=== PATIENT | male | born 1975 | race Two or more races ===

== ENCOUNTER 2019-12-26 11:46 | Outpatient (REF) | payer MEDICAID, SELFPAY ==
[2019-12-26 13:28] LABS: Erythrocyte Sedimentation Rate 2 MM/HR (0-15)
[2019-12-26 15:05] LABS: Alanine Aminotransferase 20 U/L (0-40); Albumin Level 4.7 g/dL (3.5-5.0); Alkaline Phosphatase 70 U/L (39-117); Anion Gap 13 (12-20); Aspartate Amino Transferase 16 U/L (5-37); Bilirubin Total 0.6 mg/dL (0.0-1.0); Blood Urea Nitrogen 12 mg/dL (9-16); Calcium 9.5 mg/dL (8.4-10.2); Carbon Dioxide 25 mmol/L (22-29); Chloride 108 mmol/L (96-108); Cholesterol 230 mg/dL; Estimated Glomerular Filt Rate > 60; Glucose Random 99 mg/dL (60-115); HDL Cholesterol 41 mg/dL; LDL Cholesterol Calculated 166 mg/dl; Potassium 4.4 mmol/l (3.3-5.1); Rheumatoid Factor < 15.0 IU/mL (<15.0); Sodium 142 mmol/L (135-145); Total Protein 7.3 g/dL (6.5-8.0); Triglycerides 117 mg/dL
[2019-12-28 12:36] LABS: Cyclic Citrullinated Peptide <16 UNITS
== END 2019-12-26 11:47 | disposition home or self-care (01) ==
LOC: HO.LAB 11:46
PROVIDERS: PCP Internal Medicine; Visit Provider Internal Medicine
DX: E78.00 Pure hypercholesterolemia, unspecified (principal); F32.5 Major depressive disorder, single episode, in full remission; I10 Essential (primary) hypertension; M79.643 Pain in unspecified hand; R21 Rash and other nonspecific skin eruption; R35.0 Frequency of micturition
CPT/HCPCS: 36415; 80053; 80061; 85652; 86038; 86039; 86200; 86431

== ENCOUNTER 2019-12-26 12:29 | Emergency (ER) | payer MEDICAID, SELFPAY ==
--- NOTE | 2019-12-26 | CT_ITS ---
EXAMINATION: CT HEAD WITHOUT CONTRAST CT FACIAL BONES WITHOUT CONTRAST CLINICAL INFORMATION: Dizziness. Fall. COMPARISON: None. TECHNIQUE: Imaging was performed from the skull base to vertex without intravenous administration of contrast. In addition, helical noncontrast CT imaging was acquired through the facial bones and source images were reviewed along with axial reconstructions and sagittal and coronal MPRs. [This CT examination was performed using dose optimization techniques as appropriate, variously including the following: *Automated exposure control *Adjustment of mA and/or kV according to patient size (this includes techniques or standardized protocols for targeted exams where dose is matched to indication/reason for exam; i.e. extremities or head) *Use of iterative reconstruction technique] DLP: 1262 mGy-cm FINDINGS: HEAD: No intracranial mass, hemorrhage, or midline shift is visualized. The ventricles and sulci are age-appropriate. No extra-axial collections are identified. FACIAL BONES: There is no evidence of an acute facial bone fracture. The paranasal sinuses are well aerated. The orbits are unremarkable in appearance. IMPRESSION: No acute intracranial process or discrete facial bone fracture.
--- NOTE | 2019-12-26 | ECG_ITS ---
Test Reason : DIZZINESS Blood Pressure : / mmHG Vent. Rate : 067 BPM Atrial Rate : 067 BPM P-R Int : 152 ms QRS Dur : 102 ms QT Int : 408 ms P-R-T Axes : 050 -12 012 degrees QTc Int : 431 ms Normal sinus rhythm with sinus arrhythmia Minimal voltage criteria for LVH, may be normal variant Borderline ECG No previous ECGs available Referred By: Generic ED Physician Electronically Signed By:MERCEDES MANDUJANO
[2019-12-26 12:39] VITALS: BP 158/101; PULSE 61; RESP 18; TEMP 37; O2SAT 98; BMI 34.9
[2019-12-26 15:54] VITALS: BP 132/93; PULSE 60; RESP 16; TEMP 36.6; O2SAT 97
[2019-12-26 16:00] VITALS: BP 124/78; PULSE 81; RESP 16; TEMP 36.6; O2SAT 96
[2019-12-26 16:03] VITALS: BP 120/80
[2019-12-26 16:08] VITALS: BP 156/99; PULSE 68
[2019-12-26 16:09] LABS: MANUAL DIFF FLAG NO
--- NOTE | 2019-12-26 16:12 | PC.NURSE ---
PT UPRIGHT IN BED, RR EVEN UNLABORED, SKIN WPD AOX3. PT C/O L SIDED HEADACHE ONGOING FOR DAYS, AND MULTIPLE FALLS OVER LAST 2 WEEKS DURING WHICH HE HAS HAD INTERMITTENT DIZZINESS, SPECIFICALLY UPON STANDING. PT'S NEUROS GROSSLY INTACT, VSS, NAD. IV ESTABLISHED, LABS DRAWN. PT AWAITING LAB/IMAGING RESULTS. PT AWARE/AGREEABLE TO PLAN OF CARE.
[2019-12-26 16:13] LABS: Basophils Percent Auto 0.2 % (0-2); Eosinophils Absolute Auto 0.1 X10*3/uL (0.0-0.4); Eosinophils Percent Auto 1.5 % (0-4); Hematocrit 47.6 % (42-52); Hemoglobin 15.7 g/dl (14.0-18.0); Imm Gran Abs Auto 0.01 X10*3/uL (0.00-0.03); Imm Gran Pct Auto 0.2 % (0.0-0.4); Lymphocytes Absolute Auto 0.7 X10*3/uL (1.2-4.9); Lymphocytes Percent Auto 15.3 % (20-40); Mean Corpuscular Hemoglobin 27.8 pg (27.0-33.0); Mean Corpuscular Volume 84.2 fL (80-98); Mean Platelet Volume 11.4 fL (9.4-12.4); Monocytes Absolute Auto 0.3 X10*3/uL (0.1-1.2); Monocytes Percent Auto 6.3 % (2-11); Neutrophils Absolute Auto 3.6 X10*3/uL (2.0-8.3); Neutrophils Percent Auto 76.5 % (45-73); Platelet Count 198 X10*3/uL (160-400); Red Blood Count 5.65 X10*6/uL (4.60-5.80); Red Cell Distribution Width 13.2 % (11.0-16.0); White Blood Count 4.8 X10*3/uL (4.8-10.8)
[2019-12-26 16:16] LABS: Glucose Urine UA NEG (NEG); Leukocyte Esterase Urine NEG (NEG); Nitrite Urine NEG (NEG); Urine Blood NEG (NEG); Urine Ketones NEG (NEG); Urine Protein TRACE MG/DL (NEG-TRACE)
[2019-12-26 16:20] LABS: Appearance Urine CLEAR; Color Urine YELLOW
--- NOTE | 2019-12-26 16:26 | ED.DIZZY ---
HPI - Dizziness General Chief Complaint: Fall Stated Complaint: FALLS Time Seen by Provider: 12/26/19 15:17 Source: patient Mode of arrival: ambulatory History of Present Illness HPI Narrative: 44 yo male with a past medical history of HTN, HLD, RA c/o room spinning dizziness / feeling off balance x2 weeks with associated frequent falls at home. Reports left-sided headache with left eye pressure, nausea and vomiting. Patient reports symptoms were sudden onset, described as feeling like he is on a boat, worse with position changes, standing to sitting/ and head movement. Reports fell and hit head 1 week ago, now with residual periorbital ecchymosis. denies taking anticoagulation or LOC. Denies hitting head again since 1st fall. Denies visual changes, chest pain /shortness of breath, weakness, numbness /tingling MD elicited complaint: dizziness Onset (ago): week(s) Timing: sudden onset Severity: severe Description: sense of movement, off-balance and difficulty walking Context: change in body position Exacerbating factors: movement/ambulation, change in body position, standing and position/lying down Relieving factors: remaining still Associated symptoms: nausea and vomiting Related Data Previous Rx's Medication Instructions Recorded meclizine 25 mg PO TID PRN #14 tab 12/26/19 ondansetron HCl [Zofran] 4 mg PO Q8H PRN #10 tab 12/26/19 Allergies Allergy/AdvReac Type Severity Reaction Status Date / Time aspirin Allergy Rash Verified 12/26/19 12:39 penicillin V Allergy Unknown Verified 12/26/19 12:39 Review of Systems Review of Systems: Yes all other systems are reviewed and are negative Constitutional: Constitutional: Reports as per HPI, Reports no additional constitutional complaints, Denies chills, Denies fever(s), Reports headache(s) and Denies weakness Eyes: Eyes: Reports as per HPI, Reports no additional eye complaints, Denies blurry vision and Denies loss of vision ENT: Reports system reviewed and no additional complaints, except as documented, Reports as per HPI, Reports dizziness, Reports headache(s) and Denies sore throat Cardiovascular: Cardiovascular: Reports as per HPI, Reports no additional cardiovascular complaints, Denies chest pain, Denies edema, Denies dyspnea and Denies dyspnea on exertion Respiratory: Respiratory: Reports as per HPI, Reports no additional respiratory complaints, Denies chest congestion, Denies cough, Denies dyspnea and Denies dyspnea on exertion Gastrointestinal: Gastrointestinal: Reports as per HPI, Denies abdominal pain, Denies diarrhea, Reports nausea and Reports vomiting Musculoskeletal: Musculoskeletal: Reports as per HPI, Reports abnormal gait, Denies numbness and Denies tingling Integumentary/Breasts: Skin/Breast: Denies rash Neurologic: Reports abnormal gait, Reports dizziness, Reports headache(s), Denies focal weakness, Denies loss of vision, Denies numbness, Denies Sensory deficit (Neuro), Denies tingling and Denies weakness Psychiatric: Psychiatric: Reports no additional psychiatric complaints [facility] Past Medical History Attestation statement: The following information was validated with the patient. Medical History High cholesterol HTN (hypertension) Rheumatoid arteritis Trigger finger Surgical History (Updated 12/26/19 @ 12:43 by Mildred Mcghee) S/P eye surgery Social History Social History Alcohol intake: current Alcohol intake frequency: a few times a month Alcohol type: beer Smoking Status: Never smoker Use of substances other than those prescribed or required for medical reasons: No Advance Directives: No Advance Directives Information Provided: Yes Physical Exam Vital Signs and I&O and Narrative: Vital Signs and I&O: Vital Signs Temp 98 F 12/26/19 15:54 Pulse 68 12/26/19 16:08 Resp 16 12/26/19 15:54 BP 156/99 H 12/26/19 16:08 Pulse Ox 97 12/26/19 15:54 Intake & Output 12/25/19 12/26/19 12/26/19 18:59 06:59 18:59 Weight 104.326 kg Body Mass Index 34.9 Const: General: cooperative and healthy appearing Orientation/consciousness: patient oriented x3 Limitations: no limitations HENMT: Other: + tenderness and erythema to forehead. Tenderness to right periorbital area. No palpable step-offs. Head: No No palpable skull fracture present, No Aguilar's sign, No palpable skull fracture and Yes raccoon eyes Ears: hearing grossly normal bilaterally and TM's normal bilaterally General nose exam: Normal external nose present Mouth: Normal oral and palatal mucosa present and no muffled voice Throat: Yes posterior oropharynx normal and Yes uvula midline Eyes: Other: dizziness elicited on EOM General: appearance normal, both eyes and all related structures Pupils: Equal, round and reactive pupils present EOM: EOMs intact bilaterally Direct Ophthalmoscopy: normal light reflex and no photophobia Neck: Other: No midline cervical spinous tenderness or step-offs Neck: Yes normal visual inspection and Yes no meningeal signs Resp: Effort & Inspection: normal respiratory effort and no stridor Auscultation: clear to auscultation bilaterally, no crackles, no rales, no rhonchi and no wheezes Cardio: Rate: regular rate Heart sounds: S1 normal heart sound present and S2 normal heart sound present Peripheral pulses: Peripheral pulses 2+ throughout GI: Inspection: Yes normal to inspection Palpation (GI): Soft to palpation, nontender, no guarding and not rigid Back/Spine/Pelvis: Other: no midline thoracic /lumbar spinous tenderness. +R thoracic MSK ttp Skin: Wounds: no wounds Neuro: General: patient oriented x3, tone normal, moves all extremities, no meningeal signs, no focal motor deficits and CN's II-XI intact bilaterally Cranial nerves: Yes Equal, round and reactive pupils present Gait exam (Neuro): Staggering gait present ( Slight staggering/off balance gait to right side. Not ataxic) Sensory Exam: No Sensory deficit (Neuro) Extrem: General: Yes normal to inspection Course Course Course Narrative: 1639-- labs/UA unremarkable. Orthostatic vital signs negative, however patient symptomatic -1646-- head/facial bone CT without acute intracranial process or discrete facial bone fracture --1655-- on re-evaluation patient is about to receive symptomatic therapies, lab and imaging results discussed. Will re-evaluate after medication MDM - Dizziness MDM Narrative Medical decision making narrative: 44 year old male with a past medical history of HTN, HLD, RA c/o room spinning dizziness / feeling off balance x2 weeks with associated frequent falls at home. On exam mildly hypertensive, NAD, bilateral raccoon eyes, no midline spinous tenderness or red flag symptoms. No focal neuro deficits, however gait staggered to right side. Concern for subdural vs BPPV vs ?subacute CVA. Low concern for CVT. R/o infectious/metabolic abnls Plan: EKG, labs, UA, head CT /facial bone CT, symptomatic treatment/reassess Lab Data Result diagrams: 12/26/19 16:01 12/26/19 16:02 Labs: Lab Results 12/26/19 12/26/19 12/26/19 Range/Units 16:01 16:01 16:01 WBC 4.8 (4.8-10.8) X10*3/uL RBC 5.65 (4.60-5.80) X10*6/uL Hgb 15.7 (14.0-18.0) g/dl Hct 47.6 (42-52) % MCV 84.2 (80-98) fL MCH 27.8 (27.0-33.0) pg MCHC 33.0 (31.0-36.0) g/dl RDW 13.2 (11.0-16.0) % Plt Count 198 (160-400) X10*3/uL MPV 11.4 (9.4-12.4) fL Immature Gran % (Auto) 0.2 (0.0-0.4) % Neut % (Auto) 76.5 H (45-73) % Lymph % (Auto) 15.3 L (20-40) % [place] % (Auto) 6.3 (2-11) % Eos % (Auto) 1.5 (0-4) % Baso % (Auto) 0.2 (0-2) % Neut # (Auto) 3.6 (2.0-8.3) X10*3/uL Lymph # (Auto) 0.7 L (1.2-4.9) X10*3/uL [place] # (Auto) 0.3 (0.1-1.2) X10*3/uL Eos # (Auto) 0.1 (0.0-0.4) X10*3/uL Baso # (Auto) 0.0 (0.0-0.2) X10*3/uL Abs Immat Gran (auto) 0.01 (0.00-0.03) X10*3/uL Absolute Nucleated RBC 0.000 (0.0-0.012) X10*3/uL Nucleated RBC % (auto) 0.0 (0.0-0.2) /100WBC Sodium (135-145) mmol/L Potassium (3.3-5.1) mmol/l Chloride (96-108) mmol/L Carbon Dioxide (22-29) mmol/L Anion Gap (12-20) BUN (9-16) mg/dL Creatinine (0.5-1.4) mg/dL Estim Creat Clear Calc Estimated GFR Random Glucose (60-115) mg/dL Calcium (8.4-10.2) mg/dL Magnesium (1.6-2.6) mg/dL Total Bilirubin (0.0-1.0) mg/dL Direct Bilirubin (0.0-0.5) mg/dL AST (5-37) U/L ALT (0-40) U/L Alkaline Phosphatase (39-117) U/L Troponin I High Sens < 3.5 (<3.5-35.0) ng/L B-Natriuretic Peptide < 10 (<100) pg/mL Total Protein (6.5-8.0) g/dL Albumin (3.5-5.0) g/dL Urine Color YELLOW Urine Appearance CLEAR Urine pH 6.0 (5.0-8.0) Ur Specific [place] 1.020 (1.005-1.025) Urine Protein TRACE (NEG-TRACE) MG/DL Urine Glucose (UA) NEG (NEG) MG/DL Urine Ketones NEG (NEG) MG/DL Urine Blood NEG (NEG) Urine Nitrite NEG (NEG) Ur Leukocyte Esterase NEG (NEG) 12/26/19 Range/Units 16:02 WBC (4.8-10.8) X10*3/uL RBC (4.60-5.80) X10*6/uL Hgb (14.0-18.0) g/dl Hct (42-52) % MCV (80-98) fL MCH (27.0-33.0) pg MCHC (31.0-36.0) g/dl RDW (11.0-16.0) % Plt Count (160-400) X10*3/uL MPV (9.4-12.4) fL Immature Gran % (Auto) (0.0-0.4) % Neut % (Auto) (45-73) % Lymph % (Auto) (20-40) % [place] % (Auto) (2-11) % Eos % (Auto) (0-4) % Baso % (Auto) (0-2) % Neut # (Auto) (2.0-8.3) X10*3/uL Lymph # (Auto) (1.2-4.9) X10*3/uL [place] # (Auto) (0.1-1.2) X10*3/uL Eos # (Auto) (0.0-0.4) X10*3/uL Baso # (Auto) (0.0-0.2) X10*3/uL Abs Immat Gran (auto) (0.00-0.03) X10*3/uL Absolute Nucleated RBC (0.0-0.012) X10*3/uL Nucleated RBC % (auto) (0.0-0.2) /100WBC Sodium 142 (135-145) mmol/L Potassium 4.2 (3.3-5.1) mmol/l Chloride 108 (96-108) mmol/L Carbon Dioxide 27 (22-29) mmol/L Anion Gap 11 L (12-20) BUN 11 (9-16) mg/dL Creatinine 0.77 (0.5-1.4) mg/dL Estim Creat Clear Calc 141.8 Estimated GFR > 60 Random Glucose 96 (60-115) mg/dL Calcium 9.6 (8.4-10.2) mg/dL Magnesium 1.9 (1.6-2.6) mg/dL Total Bilirubin 0.7 (0.0-1.0) mg/dL Direct Bilirubin 0.3 (0.0-0.5) mg/dL AST 15 (5-37) U/L ALT 19 (0-40) U/L Alkaline Phosphatase 68 (39-117) U/L Troponin I High Sens (<3.5-35.0) ng/L B-Natriuretic Peptide (<100) pg/mL Total Protein 7.2 (6.5-8.0) g/dL Albumin 4.7 (3.5-5.0) g/dL Urine Color Urine Appearance Urine pH (5.0-8.0) Ur Specific [place] (1.005-1.025) Urine Protein (NEG-TRACE) MG/DL Urine Glucose (UA) (NEG) MG/DL Urine Ketones (NEG) MG/DL Urine Blood (NEG) Urine Nitrite (NEG) Ur Leukocyte Esterase (NEG) Discharge Plan Discharge Clinical Impression: Dizziness, Head trauma, Falls Patient Disposition: Home, Self-Care Prescriptions: New meclizine 25 mg tablet 25 mg PO TID PRN (Reason: dizziness) Qty: 14 RF: 0 ondansetron HCl [Zofran] 4 mg tablet 4 mg PO Q8H PRN (Reason: nausea and vomiting) Qty: 10 RF: 0 Referrals: Heaven Reynolds MD [Primary Care Provider] - 2 days Raymundo Gómez [Physician] - 2 days
[2019-12-26 16:38] LABS: Alanine Aminotransferase 19 U/L (0-40); Albumin Level 4.7 g/dL (3.5-5.0); Alkaline Phosphatase 68 U/L (39-117); Anion Gap 11 (12-20); Aspartate Amino Transferase 15 U/L (5-37); Bilirubin Direct 0.3 mg/dL (0.0-0.5); Bilirubin Total 0.7 mg/dL (0.0-1.0); Blood Urea Nitrogen 11 mg/dL (9-16); Calcium 9.6 mg/dL (8.4-10.2); Carbon Dioxide 27 mmol/L (22-29); Chloride 108 mmol/L (96-108); Creatinine Clr Calc Pharmacy 141.8; Estimated Glomerular Filt Rate > 60; Glucose Random 96 mg/dL (60-115); Magnesium 1.9 mg/dL (1.6-2.6); Potassium 4.2 mmol/l (3.3-5.1); Sodium 142 mmol/L (135-145); Total Protein 7.2 g/dL (6.5-8.0)
[2019-12-26 16:45] LABS: B Type Natriuretic Peptide < 10 pg/mL (<100); Troponin-I High Sensitivity < 3.5 ng/L (<3.5-35.0)
[2019-12-26] MEDS: 0.9 % Sodium Chloride 1,000 ML 999 ML IVCONT ×2 (16:48)
[2019-12-26] MEDS: Meclizine HCl 25 MG TABLET PO (16:53)
[2019-12-26] MEDS: ondansetron HCL 4 MG/2 ML VIAL IVPUSH (16:53)
[2019-12-26] MEDS: Acetaminophen 325 MG TABLET 650 MG PO (16:54)
[2019-12-26] MEDS: LORazepam 2 MG/ML VIAL 1 MG IVPUSH (16:54)
[2019-12-26 18:00] VITALS: BP 120/84; PULSE 71; RESP 16; TEMP 36.8; O2SAT 97
== END 2019-12-26 20:16 | disposition home or self-care (01) ==
PROVIDERS: Physician Assistant; Emergency Provider Emergency Medicine; PCP Internal Medicine
DX: R42 Dizziness and giddiness (principal); Z91.81 History of falling
CPT/HCPCS: 36415; 70450; 70486; 80048; 80076; 81003; 83735; 83880; 84484; 85025; 93005; 93010; 96361; 96374; 96375; 99284; J2060; J2405

== ENCOUNTER 2020-06-07 13:55 | Outpatient (REF) | payer MEDICAID, SELFPAY ==
[2020-06-07 15:13] LABS: MANUAL DIFF FLAG NO
[2020-06-07 15:19] LABS: Basophils Percent Auto 0.2 % (0-2); Eosinophils Absolute Auto 0.1 X10*3/uL (0.0-0.4); Eosinophils Percent Auto 1.6 % (0-4); Hematocrit 46.9 % (42-52); Hemoglobin 15.8 g/dl (14.0-18.0); Imm Gran Abs Auto 0.02 X10*3/uL (0.00-0.03); Imm Gran Pct Auto 0.4 % (0.0-0.4); Lymphocytes Absolute Auto 0.7 X10*3/uL (1.2-4.9); Lymphocytes Percent Auto 13.3 % (20-40); Mean Corpuscular HGB Conc 33.7 g/dl (31.0-36.0); Mean Corpuscular Hemoglobin 28.3 pg (27.0-33.0); Mean Corpuscular Volume 83.9 fL (80-98); Mean Platelet Volume 11.7 fL (9.4-12.4); Monocytes Absolute Auto 0.3 X10*3/uL (0.1-1.2); Monocytes Percent Auto 5.9 % (2-11); Neutrophils Absolute Auto 4.4 X10*3/uL (2.0-8.3); Neutrophils Percent Auto 78.6 % (45-73); Platelet Count 179 X10*3/uL (160-400); Red Blood Count 5.59 X10*6/uL (4.60-5.80); Red Cell Distribution Width 13.2 % (11.0-16.0); White Blood Count 5.6 X10*3/uL (4.8-10.8)
[2020-06-07 15:30] LABS: Glucose Urine UA NEG (NEG); Leukocyte Esterase Urine NEG (NEG); Nitrite Urine NEG (NEG); Specific Gravity - Urine 1.025 (1.005-1.025); Urine Blood NEG (NEG); Urine Ketones NEG (NEG); Urine Protein NEG (NEG-TRACE)
[2020-06-07 15:40] LABS: Appearance Urine CLEAR; Color Urine YELLOW
[2020-06-07 15:47] LABS: Alanine Aminotransferase 23 U/L (0-40); Alkaline Phosphatase 85 U/L (39-117); Anion Gap 13 (12-20); Aspartate Amino Transferase 22 U/L (5-37); Bilirubin Total 0.8 mg/dL (0.0-1.0); Blood Urea Nitrogen 18 mg/dL (9-16); C Reactive Protein 0.22 mg/dL (< or = 0.50); Calcium 10.2 mg/dL (8.4-10.2); Carbon Dioxide 27 mmol/L (22-29); Chloride 103 mmol/L (96-108); Estimated Glomerular Filt Rate > 60; Glucose Random 93 mg/dL (60-115); Potassium 4.4 mmol/L (3.3-5.1); Sodium 139 mmol/L (135-145); Total Protein 7.8 g/dL (6.5-8.0)
[2020-06-07 16:03] LABS: Erythrocyte Sedimentation Rate 2 MM/HR (0-15)
[2020-06-07 16:09] LABS: Thyroid Stimulating Hormone 2.14 uIU/mL (0.32-4.0)
[2020-06-07 16:22] LABS: RBC Urine 0 /HPF (0); WBC Urine 0 /HPF (0-4)
[2020-06-08 11:26] LABS: Thyroglobulin Antibodies <1 IU/mL (< or = 1); Thyroid Peroxidase Antibodies 2 IU/mL (<9)
[2020-06-10 13:47] LABS: Complement C3 139 mg/dL (82-185)
[2020-06-10 23:17] LABS: Anti Nuclear Antibody Screen POSITIVE (NEGATIVE); Anti Nuclear Antibody Titer 1:40 titer
[2020-06-11 13:32] LABS: Anti DNA DS Antibody 1 IU/mL; Antibody to SS-A Antigen <1.0 NEG AI (<1.0 NEG); Antibody to SS-B Antigen <1.0 NEG AI (<1.0 NEG); SM/Ribonucleoprotein Ab <1.0 NEG AI (<1.0 NEG); Smith Protein <1.0 NEG AI (<1.0 NEG)
== END 2020-06-07 13:56 | disposition home or self-care (01) ==
LOC: HO.LAB 13:55
PROVIDERS: PCP Internal Medicine; Visit Provider Student in an Organized Health Care Education/Training Program
DX: R76.8 Other specified abnormal immunological findings in serum (principal); M25.50 Pain in unspecified joint; M17.0 Bilateral primary osteoarthritis of knee; M65.30 Trigger finger, unspecified finger; E78.00 Pure hypercholesterolemia, unspecified; I10 Essential (primary) hypertension; Z88.6 Allergy status to analgesic agent; Z88.0 Allergy status to penicillin; Z88.8 Allergy status to other drugs, medicaments and biological substances; Z79.899 Other long term (current) drug therapy
CPT/HCPCS: 36415; 80053; 81001; 84443; 85025; 85652; 86038; 86039; 86140; 86160; 86225; 86235; 86376; 86800; 99202

== ENCOUNTER → 2020-06-25 15:49 | Outpatient (BNVA) | payer MEDICAID, SELFPAY | PROVIDERS: Visit Provider Student in an Organized Health Care Education/Training Program | DX: M25.50 Pain in unspecified joint (principal); R76.8 Other specified abnormal immunological findings in serum | CPT/HCPCS: 99212 ==

== ENCOUNTER → 2021-01-20 19:12 | Outpatient (REF) | payer MEDICAID, SELFPAY | LOC: HO.SL 19:12 | PROVIDERS: Visit Provider Internal Medicine | DX: G47.33 Obstructive sleep apnea (adult) (pediatric) (principal) | CPT/HCPCS: 95806 ==

== ENCOUNTER 2021-05-19 06:25 | Outpatient (REF) | payer MEDICAID, SELFPAY ==
[2021-05-19 08:10] LABS: Alanine Aminotransferase 17 U/L (0-40); Albumin Level 4.4 g/dL (3.5-5.0); Alkaline Phosphatase 77 U/L (39-117); Anion Gap 13 (12-20); Aspartate Amino Transferase 19 U/L (5-37); Bilirubin Total 0.8 mg/dL (0.0-1.0); Blood Urea Nitrogen 12 mg/dL (9-16); Calcium 9.4 mg/dL (8.4-10.2); Carbon Dioxide 29 mmol/L (22-29); Chloride 104 mmol/L (96-108); Cholesterol 210 mg/dL; Estimated Glomerular Filt Rate > 60; Glucose Random 102 mg/dL (60-115); HDL Cholesterol 43 mg/dL; LDL Cholesterol Calculated 148 mg/dl; Potassium 4.5 mmol/L (3.3-5.1); Sodium 141 mmol/L (135-145); Triglycerides 96 mg/dL
== END 2021-05-19 06:26 | disposition home or self-care (01) ==
LOC: HO.LAB 06:25
PROVIDERS: PCP Internal Medicine; Visit Provider Internal Medicine
DX: E78.00 Pure hypercholesterolemia, unspecified (principal); I10 Essential (primary) hypertension; G47.33 Obstructive sleep apnea (adult) (pediatric)
CPT/HCPCS: 36415; 80053; 80061

== ENCOUNTER 2021-06-23 09:51 | Outpatient (REF) | payer MEDICAID, SELFPAY ==
[2021-06-23 11:04] LABS: Alanine Aminotransferase 24 U/L (0-40); Albumin Level 4.6 g/dL (3.5-5.0); Alkaline Phosphatase 77 U/L (39-117); Anion Gap 11 (12-20); Aspartate Amino Transferase 19 U/L (5-37); Blood Urea Nitrogen 12 mg/dL (9-16); Calcium 9.7 mg/dL (8.4-10.2); Carbon Dioxide 32 mmol/L (22-29); Chloride 103 mmol/L (96-108); Cholesterol 152 mg/dL; Estimated Glomerular Filt Rate > 60; Glucose Random 93 mg/dL (60-115); HDL Cholesterol 47 mg/dL; LDL Cholesterol Calculated 86 mg/dl; Potassium 4.6 mmol/L (3.3-5.1); Sodium 141 mmol/L (135-145); Total Protein 7.2 g/dL (6.5-8.0); Triglycerides 99 mg/dL
== END 2021-06-23 09:52 | disposition home or self-care (01) ==
LOC: HO.LAB 09:51
PROVIDERS: PCP Internal Medicine; Visit Provider Internal Medicine
DX: Z00.00 Encounter for general adult medical examination without abnormal findings (principal)
CPT/HCPCS: 36415; 80053; 80061

== ENCOUNTER 2022-04-20 05:49 | Emergency (ER) | payer MEDICAID, SELFPAY ==
--- NOTE | ~2022-04-20 | XR_ITS ---
EXAMINATION: XR SHOULDER, RIGHT CLINICAL INFORMATION: Right shoulder pain status post lifting injury. COMPARISON: None TECHNIQUE: Three views of the right shoulder. FINDINGS: Mild right glenohumeral and acromioclavicular degenerative joint changes are seen including joint space narrowing and mild marginal osteophyte formation. There is no acute fracture or dislocation. The soft tissues are unremarkable. XR/XR shoulder RT min 2V IMPRESSION: Mild right shoulder degenerative joint changes. No acute abnormality.
[2022-04-20 06:02] VITALS: BP 142/84; PULSE 76; RESP 18; TEMP 36.9; O2SAT 98; BMI 38.0
--- NOTE | 2022-04-20 07:35 | ED.EXTPRO ---
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 Patient states that he was able to take some Naprosyn which helped him with the pain for a little while then overnight he began having pain again and states it is so she aided with pain and tingling extending down into his distal arm. Related Data Home Medications Medication Instructions Recorded Confirmed albuterol sulfate 90 mcg/actuation 2 puff inhalation Q6H PRN 06/07/20 06/07/20 aerosol inhaler atorvastatin 80 mg tablet 80 mg PO DAILY 06/07/20 06/07/20 ibuprofen 600 mg tablet 600 mg PO TID 06/07/20 06/07/20 losartan 50 mg tablet 50 mg PO DAILY 06/07/20 06/07/20 Allergies Allergy/AdvReac Type Severity Reaction Status Date / Time aspirin Allergy Intermediate Rash Verified 06/25/20 15:53 lisinopril Allergy Intermediate Cough Verified 06/25/20 15:53 penicillin V Allergy Unknown Verified 06/25/20 15:53 Review of Systems Review of Systems: Pertinent positives and negatives as stated in HPI [facility] Past Medical History Source: nursing notes reviewed Medical History High cholesterol HTN (hypertension) Trigger finger Surgical History S/P eye surgery Social History Social History Alcohol intake: current Alcohol intake frequency: a few times a month Alcohol type: beer Advance Directives: No Physical Exam Vital Signs: Vital Signs: Last Vital Signs Temp 98.7 F 04/20/22 07:38 Pulse 72 04/20/22 07:38 Resp 14 04/20/22 07:38 BP 137/86 04/20/22 07:38 Pulse Ox 96 04/20/22 07:38 O2 Del Method 04/20/22 07:38 BMI result Body Mass Index 38.0 VITAL SIGNS: Reviewed. GENERAL: Well developed, well nourished, in no acute distress. HEAD: Normocephalic/atraumatic EYES: PERRLA, EOMI LUNGS: Normal breath sounds. CARDIOVASCULAR: Regular rate and rhythm without noted murmurs ABDOMEN: Soft, non-tender, non-distended with bowel sounds. MUSCULOSKELETAL: No tenderness, deformities, or effusions noted on gross inspection. EXTREMITIES: No cyanosis, clubbing or edema. RIGHT UPPER EXTREMITY:cannot active ABduct (can passively range), limited flexion at shoulder, cannot flex at elbow against resistance, definitely cannot ABD duct against resistance and all pain is at proximal arm, no AC or bicipital groove ttp. pulses good. Also, associated with shooting pain and tingling distally. SKIN: Inspection of the skin reveals no rashes, warm and dry NEUROLOGIC: Alert and oriented x 4. Medications Administered Discontinued Medications Generic Name Dose Route Start Last Admin Trade Name Freq PRN Reason Stop Dose Admin Acetaminophen 975 mg 04/20/22 07:39 04/20/22 07:57 Acetaminophen 325 Mg Tablet PO 04/20/22 07:40 975 mg ONCE ONE Administration Ibuprofen 400 mg 04/20/22 07:39 04/20/22 07:57 Ibuprofen 400 Mg Tablet PO 04/20/22 07:40 400 mg ONCE ONE Administration Medical Decision Making Medical Decision Making [facility] Narrative: 46-year-old male with history and clinical presentation most consistent with injured tendon. No clinical suspicion to suggest fracture or dislocation. I did discuss this case with the on-call orthopedic surgeon who recommends sling as needed and follow-up in the clinic. Patient placed in a sling and given combination analgesics, he is otherwise discharged home in stable condition with strict lead degenerative changes noted on the x-ray. Differential Diagnosis Differential Diagnoses: The differential diagnosis associated with the presentation includes Please see the discussion above Consult Healthcare Provider Management of the patient was discussed with: Enrobing Machine Feeder 0719: I discussed this case with orthopedic surgeon, Dr. Garcia, who recommends at this time sling as needed and follow-up in clinic and patient can expect that this takes approximately 1 week to settle down. Lab Data [facility] Lab Attestation statement: I reviewed the patient's lab results. Please see the discussion above Radiology Impression Radiologist Impression: My interpretation is in agreement with radiologist impression of the imaging study. Chronic Conditions Patient?s care impacted by: Hypertension Discharge Plan Discharge Clinical Impression: Injury of tendon of biceps Patient Disposition: Home, Self-Care Instructions: How to Use a Sling (ED) Additional Instructions: 1. Reanudar todos los medicamentos caseros seg?n lo prescrito. 2. Tylenol 1000 mg, por v?a oral, cada 6 horas seg?n sea necesario para controlar el dolor. No exceda los 4000 mg dentro de las 24 horas. Naprosyn 500 mg (esto lo tienes en casa), con leche o alimentos, cada 12 horas seg?n sea necesario para el dolor. 3. Utilice el cabestrillo para el hombro ?nicamente seg?n sea necesario para munoz comodidad/alivio; si lo usa demasiado, puede causar rigidez en la articulaci?n del hombro. 4. Se le henderson dado irina remisi?n para ortopedia y debe llamar a la oficina hoy para programar irina venessa para irina reevaluaci?n. Regrese a la tomas de emergencias si los s?ntomas empeoran. 1. Resume all home medications as prescribed. 2. Tylenol 1000 mg, orally, every 6 hours as needed for pain control. Do not exceed 4000 mg within 24 hours. Naprosyn 500 mg (you have this at home), with milk or food, every 12 hours as needed for pain. 3. Only use the shoulder sling as needed for comfort/relief, if you use it too much it can cause stiffening of the shoulder joint. 4. You have been given a referral for Orthopedics and should call the office today to set up an appointment for re-evaluation. Return to the ER for any worsening symptoms. Prescriptions: No Action atorvastatin 80 mg tablet 80 mg PO DAILY losartan 50 mg tablet 50 mg PO DAILY ibuprofen 600 mg tablet 600 mg PO TID albuterol sulfate 90 mcg/actuation HFA aerosol inhaler 2 puff inhalation Q6H PRN Referrals: Heaven Reynolds MD [Primary Care Provider] - Vin Garcia MD [Physician] - (? Proxi biceps tendon injury. Discussed 04/20.) Stand Alone Forms: Work/School Release
[2022-04-20 07:38] VITALS: BP 137/86; PULSE 72; RESP 14; TEMP 37.1; O2SAT 96
[2022-04-20] MEDS: Acetaminophen 325 MG TABLET 975 MG PO (07:57)
[2022-04-20] MEDS: Ibuprofen 400 MG TABLET PO (07:57)
== END 2022-04-20 08:49 | disposition home or self-care (01) ==
PROVIDERS: Emergency Provider Student in an Organized Health Care Education/Training Program; PCP Internal Medicine
DX: S46.201A Unspecified injury of muscle, fascia and tendon of other parts of biceps, right arm, initial encounter (principal); X50.0XXA Overexertion from strenuous movement or load, initial encounter; X50.9XXA Other and unspecified overexertion or strenuous movements or postures, initial encounter; Y93.9 Activity, unspecified; Y92.9 Unspecified place or not applicable; Y99.9 Unspecified external cause status
CPT/HCPCS: 73030; 99283

== ENCOUNTER 2022-04-22 11:42 | Outpatient (REF) | payer MEDICAID, SELFPAY ==
--- NOTE | 2022-04-22 08:45 | EMG_ITS ---
Please see scanned EMG / Nerve Conduction Report. MTDD
== END 2022-04-22 11:43 | disposition home or self-care (01) ==
LOC: HO.NEURO 11:42
PROVIDERS: PCP Internal Medicine; Visit Provider Internal Medicine
DX: G56.03 Carpal tunnel syndrome, bilateral upper limbs (principal)
CPT/HCPCS: 95885; 95913

== ENCOUNTER 2022-04-27 09:49 | Outpatient (REF) | payer MEDICAID, SELFPAY ==
[2022-04-27 10:07] LABS: MANUAL DIFF FLAG NO
[2022-04-27 10:21] LABS: Basophils Percent Auto 0.2 % (0-2); Eosinophils Absolute Auto 0.2 X10*3/uL (0.0-0.4); Eosinophils Percent Auto 3.5 % (0-4); Hematocrit 44.5 % (42.0-52.0); Hemoglobin 15.3 g/dl (14.0-18.0); Imm Gran Abs Auto 0.03 X10*3/uL (0.00-0.03); Imm Gran Pct Auto 0.6 % (0.0-0.4); Lymphocytes Absolute Auto 0.7 X10*3/uL (1.2-4.9); Lymphocytes Percent Auto 13.5 % (20-40); Mean Corpuscular HGB Conc 34.4 g/dl (31.0-36.0); Mean Corpuscular Hemoglobin 28.1 pg (27.0-33.0); Mean Corpuscular Volume 81.8 fL (80.0-98.0); Mean Platelet Volume 11.3 fL (9.4-12.4); Monocytes Absolute Auto 0.3 X10*3/uL (0.1-1.2); Monocytes Percent Auto 5.3 % (2-11); Neutrophils Absolute Auto 3.8 x10*3/uL (2.0-8.3); Neutrophils Percent Auto 76.9 % (45-73); Platelet Count 147 X10*3/uL (160-400); Red Blood Count 5.44 X10*6/uL (4.60-5.80); Red Cell Distribution Width 13.2 % (11.0-16.0); White Blood Count 4.9 X10*3/uL (4.8-10.8)
[2022-04-27 11:29] LABS: Alanine Aminotransferase 35 U/L (0-40); Albumin Level 4.6 g/dL (3.5-5.0); Alkaline Phosphatase 78 U/L (39-117); Anion Gap 11 (12-20); Aspartate Amino Transferase 23 U/L (5-37); Bilirubin Total 0.7 mg/dL (0.0-1.0); Blood Urea Nitrogen 17 mg/dL (9-16); Calcium 9.5 mg/dL (8.4-10.2); Carbon Dioxide 27 mmol/L (22-29); Chloride 107 mmol/L (96-108); Cholesterol 179 mg/dL; Estimated Glomerular Filt Rate > 60; Glucose Random 108 mg/dL (60-115); HDL Cholesterol 46 mg/dL; LDL Cholesterol Calculated 115 mg/dl; Potassium 4.1 mmol/L (3.3-5.1); Sodium 141 mmol/L (135-145); Triglycerides 93 mg/dL
[2022-04-27 12:57] LABS: Thyroid Stimulating Hormone 2.57 uIU/mL (0.32-4.0)
== END 2022-04-27 09:50 | disposition home or self-care (01) ==
LOC: HO.LAB 09:49
PROVIDERS: PCP Internal Medicine; Visit Provider Internal Medicine
DX: E78.00 Pure hypercholesterolemia, unspecified (principal); G47.33 Obstructive sleep apnea (adult) (pediatric); G56.03 Carpal tunnel syndrome, bilateral upper limbs
CPT/HCPCS: 36415; 80053; 80061; 84443; 85025

== ENCOUNTER → 2022-05-07 14:27 | Outpatient (BNVA) | payer MEDICAID, SELFPAY | PROVIDERS: PCP Internal Medicine; Visit Provider Physician Assistant | DX: S46.211A Strain of muscle, fascia and tendon of other parts of biceps, right arm, initial encounter (principal) | CPT/HCPCS: 99202 ==

== ENCOUNTER → 2022-06-19 14:53 | Outpatient (BNVA) | payer MEDICAID, SELFPAY | PROVIDERS: PCP Internal Medicine; Visit Provider Physician Assistant | DX: S46.211D Strain of muscle, fascia and tendon of other parts of biceps, right arm, subsequent encounter (principal) | CPT/HCPCS: 20610; 99212; J1040 ==

== ENCOUNTER 2022-07-07 11:10 | Outpatient (REF) | payer MEDICAID, SELFPAY ==
--- NOTE | ~2022-07-07 | XR_ITS ---
EXAMINATION: XR HAND, RIGHT CLINICAL INFORMATION: Right hand pain COMPARISON: None available. TECHNIQUE: PA, lateral, and oblique views of the right hand. FINDINGS: There is a 2 mm metallic foreign body in the soft tissues radial to the 2nd PIP joint. Moderate osteoarthritis with prominent osteophytes of the 1st interphalangeal joint. Degenerative changes elsewhere are minimal. No acute abnormality. XR/XR hand RT min 3V IMPRESSION: 1. 2 mm metallic foreign body in the soft tissues radial to the 2nd PIP joint. 2. 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
== END 2022-07-07 11:11 | disposition home or self-care (01) ==
LOC: HO.HOSX 11:10
PROVIDERS: Visit Provider Orthopaedic Surgery
DX: G56.03 Carpal tunnel syndrome, bilateral upper limbs (principal); M65.321 Trigger finger, right index finger; M65.341 Trigger finger, right ring finger; M65.4 Radial styloid tenosynovitis [de Quervain]
CPT/HCPCS: 20550; 73130; 99202; J1100

== ENCOUNTER 2022-07-23 10:00 | Outpatient (RCR) | payer MEDICAID, SELFPAY ==
--- NOTE | 2022-06-04 15:55 | MHC.PT.EP ---
[facility] [place] Office [place] Office [place] Office [address] Joe Paez [address] [phone] F: [phone] F: [phone] F: [phone] F: [phone] Physical Therapy Plan of Care Date of Evaluation: Date of Surgery: Diagnosis: Strain RIGHT biceps tendon (MD Dx) RIGHT shoulder SIS (most likely) ?cervical radiculopathy, ?possible RTC involvement/supraspinatus Assessment: Patient is a 46 y.o. Occitan-speaking male who is referred to PT by JOLYNN Dinh, with Dx of right biceps strain. PT diagnosis is right subacromial impingement syndrome (most likely) but also could involve cervical radiculopathy due to location of pain also appears to originate at cervical spine, also concern regarding possible RTC involvement/supraspinatus being impinged. Patient impairments include pain, radicular sxs, limited ROM, weakness, inability to work. 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 Patient will benefit from skilled PT to address aforementioned impairments and functional limitations to meet established goals. Patient would also benefit from imaging of cervical spine to clear this area, also may benefit from further imaging to R shoulder. Patient also appropriate for OT/CHT evaluation of R wrist/hand. Frequency and Duration: The patient will be seen 2x/week for 4 weeks Short Term Goals: 2 weeks Patient demonstrates consistency and independence with HEP to self manage symptoms. Patient is able to demonstrate centralization of R arm radicular sxs. Patient is able to discontinue use of R wrist brace to encourage mobility of R UE for ADLs. Senior Care Goals: 4 weeks Patient is able to demonstrate R shoulder AROM 140 degrees to reach overhead for bathing. Patient presents with increased R shoulder flexion strength 4/5 to be able to lift groceries. Treatment Plan: Modalities to reduce pain, spasms and effusion. Manual therapy to restore motion and function. Therapeutic exercise to improve strength and flexibility. Neuromuscular re-education for posture and balance. Therapeutic activities to return to functional activities of daily living. Electronically signed by: Kobe Gastelum PT, DPT Please sign and return to therapist. Thank you for your referral.
--- NOTE | 2022-09-15 11:05 | MHC.PT.DC ---
[facility] [place] [facility] [place] [facility] [employer] [facility] [address] Joe Paez [address] [phone] F: [phone] F: [phone] F: [phone] F: [phone] Physical Therapy Discharge Report Diagnosis: Strain RIGHT biceps tendon (MD Dx) RIGHT shoulder SIS (most likely) ?cervical radiculopathy, ?possible RTC invovlement/supraspinatus Date of Surgery: Date of Evaluation: 06/04/22 Date of Discharge: 09/15/22 Treatments to Date: 15 Cancellations to Date: No Shows to Date: Discharge Status: Recommend MD Follow-up Discharge Summary: From assessment on 07/23/22: He has made some progress with ROM and strength since beginning PT but still with pain that he reports is worse at night lying down that starts in neck and radiates ant shoulder to hand. He has tenderness in anterior lateral shoulder and ACJ, likely supraspinatus involvement and impingement due to presentation. Questionable tear versus impingement due to difficulty progressing program. His symptoms are complicated by radicular sxs into hand and difficulty tolerating exercise using weight or more resistance in hands. He may benefit from MRI of R shoulder to rule in/out RTC tears. However, there is a small metallic debris in R hand shown on x-ray, I discuss this with him to speak to hand surgeon about removing as he won't be able to have an MRI in the future with the metal fragment. He sees ortho tomorrow for shoulder. I am putting him on hold since he is having hand surgery next week. Once he is cleared by MD to return to PT for his shoulder we will resume. He is discharged after hand surgery as he won't be returning at this time. Electronically signed by: Kobe Gastelum, PT, DPT Please sign and return to therapist. Thank you for your referral.
== END 2022-09-15 11:06 | disposition home or self-care (01) ==
LOC: HO.PT 10:00
PROVIDERS: PCP Internal Medicine; Visit Provider Physician Assistant
DX: S46.211A Strain of muscle, fascia and tendon of other parts of biceps, right arm, initial encounter (principal)
CPT/HCPCS: 97014; 97035; 97110; 97140; 97161

== ENCOUNTER → 2022-07-24 10:36 | Outpatient (BNVA) | payer MEDICAID, SELFPAY | PROVIDERS: PCP Internal Medicine; Visit Provider Physician Assistant | DX: S46.211D Strain of muscle, fascia and tendon of other parts of biceps, right arm, subsequent encounter (principal) | CPT/HCPCS: 99212 ==

== ENCOUNTER → 2022-07-28 12:50 | Outpatient (BNVA) | payer MEDICAID, SELFPAY | PROVIDERS: PCP Internal Medicine; Referring Provider Internal Medicine; Visit Provider Internal Medicine | DX: R06.02 Shortness of breath (principal); I10 Essential (primary) hypertension; G47.33 Obstructive sleep apnea (adult) (pediatric) | CPT/HCPCS: 93005; 99202 ==

== ENCOUNTER 2022-07-29 12:48 | Outpatient (REF) | payer MEDICAID, SELFPAY ==
--- NOTE | ~2022-07-29 | XR_ITS ---
EXAMINATION: XR KNEE, RIGHT XR KNEE, LEFT XR KNEE AP STANDING CLINICAL INFORMATION: Pain. COMPARISON: None available. TECHNIQUE: Lateral and axial views of the right knee were obtained. Lateral and axial views of the left knee were obtained. AP bilateral standing view of the knees was obtained. FINDINGS: Right knee: Bony mineralization is normal. There is marked asymmetric narrowing of the medial joint space compartment, and the lateral joint space compartment is well-maintained. There is moderate narrowing of the patellofemoral compartment. There is tricompartment peripheral osteophyte formation. There is a varus configuration. No fracture or dislocation is seen. There is no significant joint effusion. No foreign body is seen. Left knee: Bony mineralization is normal. There is marked asymmetric narrowing of the medial joint space compartment, and the lateral joint space compartment is well-maintained. There is mild to moderate narrowing of the patellofemoral compartment. There is tricompartment peripheral osteophyte formation. There is a varus configuration. No fracture or dislocation is seen. There is no significant joint effusion. No foreign body is noted. XR/XR knee RT 2V IMPRESSION: 1. There is tricompartment osteoarthritic change of the right knee, most pronounced of the medial joint space compartment, where it is severe. 2. There is tricompartment osteoarthritic change of the left knee, most pronounced at the medial joint space compartment, where it is severe. 3. A varus configuration is seen of the bilateral knees. 4. No fracture, dislocation or joint effusion is seen bilaterally.
--- NOTE | ~2022-07-29 | XR_ITS ---
EXAMINATION: XR KNEE, RIGHT XR KNEE, LEFT XR KNEE AP STANDING CLINICAL INFORMATION: Pain. COMPARISON: None available. TECHNIQUE: Lateral and axial views of the right knee were obtained. Lateral and axial views of the left knee were obtained. AP bilateral standing view of the knees was obtained. FINDINGS: Right knee: Bony mineralization is normal. There is marked asymmetric narrowing of the medial joint space compartment, and the lateral joint space compartment is well-maintained. There is moderate narrowing of the patellofemoral compartment. There is tricompartment peripheral osteophyte formation. There is a varus configuration. No fracture or dislocation is seen. There is no significant joint effusion. No foreign body is seen. Left knee: Bony mineralization is normal. There is marked asymmetric narrowing of the medial joint space compartment, and the lateral joint space compartment is well-maintained. There is mild to moderate narrowing of the patellofemoral compartment. There is tricompartment peripheral osteophyte formation. There is a varus configuration. No fracture or dislocation is seen. There is no significant joint effusion. No foreign body is noted. XR/XR knee LT 2V IMPRESSION: 1. There is tricompartment osteoarthritic change of the right knee, most pronounced of the medial joint space compartment, where it is severe. 2. There is tricompartment osteoarthritic change of the left knee, most pronounced at the medial joint space compartment, where it is severe. 3. A varus configuration is seen of the bilateral knees. 4. No fracture, dislocation or joint effusion is seen bilaterally.
--- NOTE | ~2022-07-29 | XR_ITS ---
EXAMINATION: XR KNEE, RIGHT XR KNEE, LEFT XR KNEE AP STANDING CLINICAL INFORMATION: Pain. COMPARISON: None available. TECHNIQUE: Lateral and axial views of the right knee were obtained. Lateral and axial views of the left knee were obtained. AP bilateral standing view of the knees was obtained. FINDINGS: Right knee: Bony mineralization is normal. There is marked asymmetric narrowing of the medial joint space compartment, and the lateral joint space compartment is well-maintained. There is moderate narrowing of the patellofemoral compartment. There is tricompartment peripheral osteophyte formation. There is a varus configuration. No fracture or dislocation is seen. There is no significant joint effusion. No foreign body is seen. Left knee: Bony mineralization is normal. There is marked asymmetric narrowing of the medial joint space compartment, and the lateral joint space compartment is well-maintained. There is mild to moderate narrowing of the patellofemoral compartment. There is tricompartment peripheral osteophyte formation. There is a varus configuration. No fracture or dislocation is seen. There is no significant joint effusion. No foreign body is noted. XR/XR knee standing BI IMPRESSION: 1. There is tricompartment osteoarthritic change of the right knee, most pronounced of the medial joint space compartment, where it is severe. 2. There is tricompartment osteoarthritic change of the left knee, most pronounced at the medial joint space compartment, where it is severe. 3. A varus configuration is seen of the bilateral knees. 4. No fracture, dislocation or joint effusion is seen bilaterally.
== END 2022-07-29 12:49 | disposition home or self-care (01) ==
LOC: HO.HOSX 12:48
PROVIDERS: Visit Provider Physician Assistant
DX: M17.0 Bilateral primary osteoarthritis of knee (principal)
CPT/HCPCS: 20610; 73560; 73565; 99212; J1040

== ENCOUNTER 2022-07-30 07:16 | Day surgery (SDC) | payer MEDICAID, SELFPAY ==
[2022-07-27 15:14] VITALS: BMI 38.9
--- NOTE | 2022-07-29 08:55 | P.CONAN_ITS ---
Documented by User: Shilpa Hua NP 07/29/22 08:56 HPI - Anesthesia Eval Consult details Narrative: 46yo M for Right Carpal Tunnel Release, Trigger Release of ring and index fingers PMFSH Active Problems Active Problems: All Active Problems (Updated 07/28/22 @ 13:21 by Kris Steen MD) LENA (obstructive sleep apnea) (Acute) HTN (hypertension) (Acute) Shortness of breath (Acute) De Quervain's tenosynovitis, right (Acute) Trigger ring finger of right hand (Acute) Trigger finger, right index finger (Acute) Carpal tunnel syndrome of left wrist (Acute) Carpal tunnel syndrome of right wrist (Acute) Cervical strain (Acute) Strain of right biceps tendon (Acute) Trigger finger of both hands (Acute) Primary osteoarthritis of knees, bilateral (Acute) Polyarthralgia (Acute) IRIS positive (Acute) Past Medical History Medical History High cholesterol HTN (hypertension) LENA (obstructive sleep apnea) Trigger finger Family History Family History Mother No problems noted. Father No problems noted. 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 Meds Allergies Allergy/AdvReac Type Severity Reaction Status Date / Time lisinopril Allergy Intermediate Cough Verified 07/29/22 14:05 penicillin V Allergy Unknown Unknown Verified 07/29/22 14:05 Home Medications Medication Instructions Recorded Confirmed Last Taken Type escitalopram oxalate 5 mg tablet 5 mg PO DAILY 07/24/22 07/30/22 Unknown History metoprolol succinate 50 mg 50 mg PO DAILY 07/24/22 07/30/22 07/30/22 History tablet,extended release 24 hr rosuvastatin 40 mg tablet 40 mg PO BEDTIME 07/27/22 07/30/22 Unknown History telmisartan 80 1 tab DAILY 07/27/22 07/28/22 07/30/22 History mg-hydrochlorothiazide 25 mg tablet amlodipine 10 mg tablet 10 mg PO DAILY 07/28/22 07/30/22 07/30/22 History diclofenac sodium 75 mg 75 mg PO BID 07/28/22 07/30/22 Unknown History tablet,delayed release sertraline 50 mg tablet 50 mg PO DAILY 07/28/22 07/30/22 Unknown History amlodipine 2.5 mg tablet 2.5 mg PO DAILY 07/29/22 Unknown History Exam Exam Date and Time: July 29, 2022854 Height,Weight and Vital Signs: Height 5 ft 8 in Weight 116.12 kg Pertinent Lab Results Pertinent Lab Results: Laboratory Tests 04/27/22 04/27/22 10:07 10:07 WBC 4.9 Hgb 15.3 Hct 44.5 Plt Count 147 L Sodium 141 Potassium 4.1 Chloride 107 Carbon Dioxide 27 BUN 17 H Creatinine 0.85 Assessment and Plan Assessment Anesthesia Assessment: Chart Reviewed Documented by User: Ethan Lara MD 07/30/22 08:09 [facility] Past Medical History Medical History High cholesterol HTN (hypertension) LENA (obstructive sleep apnea) Trigger finger Family History Family History Mother No problems noted. Father No problems noted. 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 Meds Allergies Allergy/AdvReac Type Severity Reaction Status Date / Time lisinopril Allergy Intermediate Cough Verified 07/29/22 14:05 penicillin V Allergy Unknown Unknown Verified 07/29/22 14:05 Home Medications Medication Instructions Recorded Confirmed Last Taken Type escitalopram oxalate 5 mg tablet 5 mg PO DAILY 07/24/22 07/30/22 Unknown History metoprolol succinate 50 mg 50 mg PO DAILY 07/24/22 07/30/22 07/30/22 History tablet,extended release 24 hr rosuvastatin 40 mg tablet 40 mg PO BEDTIME 07/27/22 07/30/22 Unknown History telmisartan 80 1 tab DAILY 07/27/22 07/28/22 07/30/22 History mg-hydrochlorothiazide 25 mg tablet amlodipine 10 mg tablet 10 mg PO DAILY 07/28/22 07/30/22 07/30/22 History diclofenac sodium 75 mg 75 mg PO BID 07/28/22 07/30/22 Unknown History tablet,delayed release sertraline 50 mg tablet 50 mg PO DAILY 07/28/22 07/30/22 Unknown History amlodipine 2.5 mg tablet 2.5 mg PO DAILY 07/29/22 Unknown History Exam Airway Mallampati Class: III TM Dist: >3cm Neck ROM: Limited Heart: rrr Lungs: cta Assessment and Plan Assessment Anesthesia Assessment: Anesthesia Plan Discussed Final Anesthetic Review Family History of Problems with Anesthesia: No History of Problems with Anesthesia: No NPO: Yes ASA Class: III Final Preanesthetic Review: No Changes in Pt Med Stat, Meds/Allgs Chart Reviewed, Consent Obtained/Reviewed and Anes Risks/Benef Reviewed Patient Risk: Intermediate Procedure Risk: Low Anesthetic Plan Anesthetic Plan: GA and Agree w/ Assess. and Plan Disposition: Standard PACU
[2022-07-30] VITALS (8 sets, daily range): BP systolic 103–133; BP diastolic 69–80; PULSE 63–78; RESP 16; TEMP 36.2–36.9; O2SAT 91–98
--- NOTE | 2022-07-30 07:56 | MHC.SHP ---
Pre-Procedural Eval Section A Date of Service: 07/30/22 The patient is an INPATIENT: No Changes since office visit: No Cold of Flu in the past 2 weeks, No New Medical Problems, No Changes in Medication and No Patient answered all questions The History & Physical has been completed within 30 days and I have reviewed it.: Yes Section B Chief Complaint: Carpal tunnel syndrome, trigger fingers Allergies: Allergies Allergy/AdvReac Type Severity Reaction Status Date / Time lisinopril Allergy Intermediate Cough Verified 07/29/22 14:05 penicillin V Allergy Unknown Unknown Verified 07/29/22 14:05 Plan I have reviewed the history and physical and performed a pertinent physical examination on my patient. No changes have occurred unless specified. Time Spent With Patient Time: Total time managing care of this patient today ____ minutes.
--- NOTE | 2022-07-30 07:57 | P.OP_ITS ---
Operative Note Operative Note Date of Service: 07/30/22 Narrative: Operative Note Narrative: Preop diagnosis: 1. Right carpal tunnel syndrome 2. Right index finger trigger finger 3. Right ring finger trigger finger Postop diagnosis: Same Procedure: 1. Right carpal tunnel release 2. Right index finger trigger release 3. Right ring finger trigger release Surgeon: Margarita Hummel MD Anesthesia: General Anesthesia Findings: thickened transverse carpal ligament, no locking or catching with passive flexion extension of the digits after A1 ese releases Implants: None Tourniquet time: 24 minutes EBL: 5.0 ml Specimen: None Drains: None Complications: None Disposition: Brought to the recovery room in stable condition Plan: Follow-up in 10-14 days for wound check, suture removal Indications: The patient is a 46 year old man with right carpal tunnel syndrome, right index and ring finger trigger fingers . The risks and benefits of operative treatment, including but not limited to risk of damage to blood vessels, nerves, tendons, infection, recurrence, persistent pain or numbness, incomplete resolution of preoperative symptoms, or need for further surgery were discussed with the patient and they wished to proceed with surgery. Procedure: Once consent was obtained patient was brought back to the operating suite and placed in the operating table in a supine position. . Perioperative antibiotics and anesthesia was administered by the anesthesia team. A tourniquet was applied to the proximal aspect of the right upper extremity and the limb was prepped and draped in a standard surgical fashion. The limb was elevated exsanguinated with Esmarch bandage and the tourniquet inflated to 250 mm of mercury for a total tourniquet time of 24 minutes. Once assured that we had a good block, a 2.0 cm longitudinal incision was made centered over the right carpal tunnel. The incision was made through the skin to the subcutaneous tissues using a #15 blade. Dissection was made down to the level of the transverse carpal ligament with care being taken to protect the palmar cutaneous nerve. Once the transverse carpal ligament was clearly visualized, a longitudinal incision was made in the transverse carpal ligament 1 st using a #15 blade, then using tenotomy scissors under direct visualization. Care was taken to look for and protect the motor branch of the median nerve when seen in this area. Once satisfied with our carpal tunnel release the wound was irrigated with normal saline. Once assured that we had a good block, a 1.5 cm oblique incision was made centered over the A1 ese of the right index finger . The incision was made through the skin to the subcutaneous tissues using a #15 blade. Careful dissection was made down to the level of the A1 ese using tenotomy scissors, with care being taken to protect the nearby neurovascular structures. A longitudinal incision was made in the A1 ese 1st using a #15 blade, then using tenotomy scissors under direct visualization. The A1 ese was noted to be thickened. Following our A1 ese release, we no longer saw any locking or catching of the digit with flexion and extension. Once assured that we had a good block, a 1.5 cm oblique incision was made centered over the A1 ese of the right ring finger . The incision was made through the skin to the subcutaneous tissues using a #15 blade. Careful dissection was made down to the level of the A1 ese using tenotomy scissors, with care being taken to protect the nearby neurovascular structures. A longitudinal incision was made in the A1 ese 1st using a #15 blade, then using tenotomy scissors under direct visualization. The A1 ese was noted to be thickened. Following our A1 ese release, we no longer saw any locking or catching of the digit with flexion and extension. At this point the tourniquet was deflated and hemostasis obtained with a brief period of local pressure and bipolar electrocautery. The wound was copiously irrigated with normal saline. The skin edges were reapproximated with 5-0 nylon suture. The wound was infiltrated with some 1% lidocaine with epinephrine for postop pain control and a sterile dressing was applied. The patient appears to have tolerated the procedure well and with no complications. All digits were well vascularized conclusion of the case.
[2022-07-30] MEDS: Lactated Ringers 1,000 ML 100 ML IVCONT (08:06)
[2022-07-30] MEDS: oxyCODONE HCl Immed Release 5 MG TABLET PO (11:15)
[2022-07-30] MEDS: Acetaminophen 325 MG TABLET 650 MG PO (11:15)
== END 2022-07-30 12:20 | disposition home or self-care (01) ==
PROVIDERS: PCP Internal Medicine; Visit Provider Orthopaedic Surgery
PROC: (CPT 64721; principal; 2022-07-30 09:00)
PROC: (CPT 26055; 2022-07-30 09:00)
DX: G56.01 Carpal tunnel syndrome, right upper limb (principal); M65.321 Trigger finger, right index finger; M65.341 Trigger finger, right ring finger; R20.0 Anesthesia of skin; I10 Essential (primary) hypertension; E78.00 Pure hypercholesterolemia, unspecified; Z79.899 Other long term (current) drug therapy; Z88.0 Allergy status to penicillin; Z88.8 Allergy status to other drugs, medicaments and biological substances
CPT/HCPCS: 64721; 26055 ×2; J1885; J2370; J2795; J3010

== ENCOUNTER → 2022-08-10 14:40 | Outpatient (BNVA) | payer MEDICAID, SELFPAY | PROVIDERS: PCP Internal Medicine; Visit Provider Internal Medicine | DX: M54.2 Cervicalgia (principal); M17.0 Bilateral primary osteoarthritis of knee | CPT/HCPCS: 99202 ==

== ENCOUNTER → 2022-08-12 13:19 | Outpatient (BNVA) | payer MEDICAID, SELFPAY | PROVIDERS: PCP Internal Medicine; Visit Provider Orthopaedic Surgery | DX: G56.03 Carpal tunnel syndrome, bilateral upper limbs (principal); M65.321 Trigger finger, right index finger; M65.341 Trigger finger, right ring finger; M65.4 Radial styloid tenosynovitis [de Quervain] | CPT/HCPCS: 99212 ==

== ENCOUNTER → 2022-08-13 14:39 | Outpatient (REF) | payer MEDICAID, SELFPAY ==
--- NOTE | 2022-08-13 15:11 | CA_ITS ---
Transthoracic Echocardiogram Patient (Last, First, Middle): Arias Marrero, Gender: Male Date of : 1975 Age: 46 Procedure Date: 08/13/2022 Procedure Type: Transthoracic Echocardiogram Location: OP Height: 172.72 cm Weight: 117.03 kg BSA: 2.28 m2 Heart Rate: 74 bpm BP: 126 / 79 mmHg Television News Producer: SB Referring MD: Kris Steen MD Symptoms: I25.10 - Atherosclerotic heart disease of [place] coronary artery without... Study Quality: Adequate w contrast ECG Rhythm: Sinus Conclusions: - The left ventricular systolic function is normal. The calculated ejection fraction is 62% by biplane method. - No obvious valvular pathology seen on this study. Findings Procedure Information Contrast agent, definity, is being given per protocol without apparent complications. Left Ventricle Normal left ventricular cavity size. There is normal left ventricular wall thickness. The left ventricular systolic function is normal. The calculated ejection fraction is 62% by biplane method. There is no evidence of regional wall motion abnormalities. Diastolic function is normal for age. Right Ventricle The right ventricle was not well visualized. There is normal right ventricular systolic function. Atria Both atria are normal in size. Aortic Valve There is a normal trileaflet aortic valve. There is no aortic valve stenosis. There is no aortic valve regurgitation. Mitral Valve The mitral valve appears normal. There is no mitral valve stenosis. Pulmonic Valve The pulmonic valve is likely normal. Tricuspid Valve There is trace tricuspid valve regurgitation. There is no evidence of pulmonary hypertension. Great Vessels The asc aorta is normal in size. Venous The inferior vena cava is normal in size and collapses greater than 50% with inspiration. Pericardium/Pleural There is no evidence of pericardial effusion. Prior Study Comparison No prior study available for comparison. Recommendations, Care & Conclusions No obvious valvular pathology seen on this study. Measurements 2D Linear Measurements IVSd: 1.00 0.6-0.9/0.6-1.0 cm LVIDd: 5.25 3.9-5.3/4.2-5.9 cm LVIDd Index: 2.30 2.4-3.2/2.2-3.1 cm/m2 LVIDs: 3.36 2.0-3.6 cm LVPWd: 0.78 0.7-1.1 cm LA Diam: 4.20 2.7-3.8/3.0-4.0 cm LAIDs Index: 1.84 1.5-2.3 cm/m2 LV Mass: 211.45 67-162/88-224 g LV Mass Index: 92.74 43-95/49-115 g/m2 LVOT Diam: 2.20 3.0+(-)1.3 cm 2D Systolic Function EF 4C: 58.20 >55% EF 2C: 65.20 >55% EF BiP: 62.40 >55% Mitral Valve MV Pk E: 0.78 MV PK A: 0.58 MV Decel Time: 196.00 E/A: 1.30 E'Lateral: 9.14 E'Medial: 9.68 E/E' Med: 8.00 E/E' Lat: 8.50 PHT: 57.00 MVA PHT: 3.86 Decel Guthrie: 3.96 Aortic Valve AoV Pk P[place]: 1.66 AoV Mn Pabl[place]: 1.11 AoV VTI: 0.29 AoV Pk Grad: 11.00 Aov Mn Grad: 6.00 SHWETHA Cont.VTI: 2.80 LVOT LVOT Pk [place]: 1.18 LVOT Mn Pabl[place]: 0.78 LVOT VTI: 0.21 LVOT Pk Grad: 6.00 LVOT Mn Grad: 3.00 LVOT Diam: 2.20 LVOT Area: 3.80 Diastolic Function MV Pk E: 0.78 MV Pk A: 0.58 E/A: 1.30 E'Medial: 9.68 E/E' Med: 8.00 E' Laterial: 9.14 E/E' Lat: 8.50 Right Ventricle TAPSE (mm): 19.70 TVS' Pabl[place]: 17.60 Tricuspid Valve RA Press: 3.00 Great Vessels Aorta Sinus of Valsalva: 3.30 2.0-3.5 cm Ao Asc: 3.10 2.1-3.4 cm Pulmonary Veins Pulm Vein S/D 1.30 Pulmonary Valve PV Pk Pabl[place]: 1.09 Peak PV Grad: 5.00 Updated in Other Vendor System with Status of Final Kris Steen MD electronically signed on 08/14/2022 1:46:56 PM with status of Final
== END ==
LOC: HO.CARD 14:39
PROVIDERS: PCP Internal Medicine; Visit Provider Internal Medicine
DX: I25.10 Atherosclerotic heart disease of native coronary artery without angina pectoris (principal); R06.02 Shortness of breath
CPT/HCPCS: 93306; Q9957

== ENCOUNTER → 2022-08-14 13:10 | Outpatient (BNVA) | payer MEDICAID, SELFPAY | PROVIDERS: PCP Internal Medicine; Visit Provider Physician Assistant | DX: M17.0 Bilateral primary osteoarthritis of knee (principal) | CPT/HCPCS: 20610; 99212; J1040 ==

== ENCOUNTER 2022-08-18 06:45 | Day surgery (SDC) | payer MEDICAID, SELFPAY ==
--- NOTE | 2022-08-14 10:52 | HO.ANESPROP2 ---
Documented by User: Shilpa Hua NP 08/14/22 10:54 HPI - Anesthesia Eval Consult details Narrative: 46yo M for Upper Endoscopy and Colonoscopy s/p carpal tunnel repair 07/2022 with GA-LMA 5 PMFSH Active Problems Active Problems: All Active Problems (Updated 07/29/22 @ 20:47 by Regis Patel PA-C) Osteoarthritis of knees, bilateral (Acute) LENA (obstructive sleep apnea) (Acute) HTN (hypertension) (Acute) Shortness of breath (Acute) De Quervain's tenosynovitis, right (Acute) Trigger ring finger of right hand (Acute) Trigger finger, right index finger (Acute) Carpal tunnel syndrome of left wrist (Acute) Carpal tunnel syndrome of right wrist (Acute) Cervical strain (Acute) Strain of right biceps tendon (Acute) Trigger finger of both hands (Acute) Primary osteoarthritis of knees, bilateral (Acute) Polyarthralgia (Acute) IRIS positive (Acute) Past Medical History Medical History High cholesterol HTN (hypertension) LENA (obstructive sleep apnea) Trigger finger Family History Family History Mother No problems noted. Father No problems noted. 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 Meds Allergies Allergy/AdvReac Type Severity Reaction Status Date / Time lisinopril Allergy Intermediate Cough Verified 08/14/22 13:28 penicillin V Allergy Unknown Unknown Verified 08/14/22 13:28 Home Medications Medication Instructions Recorded Confirmed Last Taken Type escitalopram oxalate 5 mg tablet 5 mg PO DAILY 07/24/22 08/10/22 Unknown History metoprolol succinate 50 mg 50 mg PO DAILY 07/24/22 08/10/22 07/30/22 History tablet,extended release 24 hr rosuvastatin 40 mg tablet 40 mg PO BEDTIME 07/27/22 08/10/22 Unknown History telmisartan 80 1 tab DAILY 07/27/22 08/10/22 07/30/22 History mg-hydrochlorothiazide 25 mg tablet diclofenac sodium 75 mg 75 mg PO BID 07/28/22 08/10/22 Unknown History tablet,delayed release amlodipine 2.5 mg tablet 5 mg PO DAILY 08/10/22 08/10/22 Unknown History Exam Exam Date and Time: August 14, 2022 1052 Pertinent Lab Results Pertinent Lab Results: Laboratory Tests 04/27/22 04/27/22 10:07 10:07 WBC 4.9 Hgb 15.3 Hct 44.5 Plt Count 147 L Sodium 141 Potassium 4.1 Chloride 107 Carbon Dioxide 27 BUN 17 H Creatinine 0.85 Assessment and Plan Assessment Anesthesia Assessment: Chart Reviewed Final Anesthetic Review Family History of Problems with Anesthesia: No History of Problems with Anesthesia: No Documented by User: Belem Wells MD 08/18/22 08:06 [facility] Active Problems Active Problems: All Active Problems (Updated 08/18/22 @ 07:35 by Belem Wells MD) Osteoarthritis of knees, bilateral (Acute) LENA (obstructive sleep apnea) (Acute). Not using CPAP. Patient states not working. Scheduled for re-evaluation in September HTN (hypertension) (Acute) Shortness of breath (Acute) De Quervain's tenosynovitis, right (Acute) Trigger ring finger of right hand (Acute) Trigger finger, right index finger (Acute) Carpal tunnel syndrome of left wrist (Acute) Carpal tunnel syndrome of right wrist (Acute) Cervical strain (Acute) Strain of right biceps tendon (Acute) Trigger finger of both hands (Acute) Primary osteoarthritis of knees, bilateral (Acute) Polyarthralgia (Acute) IRIS positive (Acute) Anxiety Increased BMI Past Medical History Medical History High cholesterol HTN (hypertension) LENA (obstructive sleep apnea) Trigger finger Family History Family History Mother No problems noted. Father No problems noted. 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 Meds Allergies Allergy/AdvReac Type Severity Reaction Status Date / Time lisinopril Allergy Intermediate Cough Verified 08/14/22 13:28 penicillin V Allergy Unknown Unknown Verified 08/14/22 13:28 Home Medications Medication Instructions Recorded Confirmed Last Taken Type escitalopram oxalate 5 mg tablet 5 mg PO DAILY 07/24/22 08/10/22 Unknown History metoprolol succinate 50 mg 50 mg PO DAILY 07/24/22 08/10/22 07/30/22 History tablet,extended release 24 hr rosuvastatin 40 mg tablet 40 mg PO BEDTIME 07/27/22 08/10/22 Unknown History telmisartan 80 1 tab DAILY 07/27/22 08/10/22 07/30/22 History mg-hydrochlorothiazide 25 mg tablet diclofenac sodium 75 mg 75 mg PO BID 07/28/22 08/10/22 Unknown History tablet,delayed release amlodipine 2.5 mg tablet 5 mg PO DAILY 08/10/22 08/10/22 Unknown History Exam Height,Weight and Vital Signs: Height 5 ft 8 in Weight 115.666 kg Vital Signs Temp Pulse Resp BP Pulse Ox O2 Del Method 08/18/22 08:01 97.4 F 83 16 106/66 97 Room Air Airway Mallampati Class: II TM Dist: >3cm Neck ROM: Full Loose/Missing/Broken Teeth: Yes (Molars extracted. Chipped molar bottom right.Denies loose teeth) Heart: RRR Lungs: CTAB Assessment and Plan Assessment Anesthesia Assessment: Anesthesia Plan Discussed Final Anesthetic Review NPO: Yes ASA Class: III Final Preanesthetic Review: No Changes in Pt Med Stat, Meds/Allgs Chart Reviewed, Consent Obtained/Reviewed and Anes Risks/Benef Reviewed Patient Risk: Intermediate Procedure Risk: Low Assessment/Block/Sedation in SS: Assess/Block/Sedation-SS Anesthetic Plan Anesthetic Plan: MAC: Disposition: Standard PACU
[2022-08-18 08:01] VITALS: BP 106/66; PULSE 83; RESP 16; TEMP 36.3; O2SAT 97; BMI 38.8
--- NOTE | 2022-08-18 08:15 | MHC.SHP ---
Pre-Procedural Eval Section A Date of Service: 08/18/22 Section B Chief Complaint: screening,dysphagia Details of Present Illness: see H&P no changes Relevant Family History (Specify if Yes): No Relevant Social History: None Present Medications: see Short Stay Collaborative assessment Medical History: No relevant PMH History of Previous Operations: No relevant previous surgery Allergies: Allergies Allergy/AdvReac Type Severity Reaction Status Date / Time lisinopril Allergy Intermediate Cough Verified 08/14/22 13:28 penicillin V Allergy Unknown Unknown Verified 08/14/22 13:28 Review of Systems Sugical H&P ROS: Negative: Constitution, Cardiovascular, Respiratory, Neurological, Psychiatric, Hem-Onc, Allergic/Immunologic, Gastrointestinal, Genitourinary, Musculoskeletal, Integumentary, Endocrine and Eyes/Ears/Nose/Throat Exam Surgical H&P Exam: Normal: HEENT, Normal: Heart, Normal: Lungs, Normal: Extremities, Normal: Abdomen, Normal: Skin and Normal: Neurological Plan Diagnosis/Plan: Unchanged I have reviewed the history and physical and performed a pertinent physical examination on my patient. No changes have occurred unless specified. Time Spent With Patient Time: Total time managing care of this patient today ____ minutes.
[2022-08-18 08:58] VITALS: BP 85/53; PULSE 98; RESP 16; TEMP 36.3; O2SAT 94
[2022-08-18 09:03] VITALS: BP 91/53; PULSE 79; RESP 18; O2SAT 95
--- NOTE | 2022-08-18 09:04 | P.BOP_ITS ---
Brief Operative Note Date of Service: 08/18/22 Pre-op diagnosis: dyspahgia gerd Post-op diagnosis: same Procedure: egd colon Surgeon: Atul Montanez Anesthesia: MAC Was an Supervisor Tan Room used for this Procedure?: No Estimated blood loss (mL): 5 Pathology: other Condition: stable Disposition: PACU
[2022-08-18 09:08] VITALS: BP 100/60; PULSE 77; RESP 18; O2SAT 95
--- NOTE | 2022-08-18 09:10 | OP_ITS ---
DATE OF SERVICE: 08/18/2022 SURGEON: Atul Montanez MD INDICATIONS: 1. Dysphagia. 2. Colon cancer screening. PREOPERATIVE DIAGNOSIS: POSTOPERATIVE DIAGNOSIS: PROCEDURE PERFORMED: ESTIMATED BLOOD LOSS: COMPLICATIONS: ANESTHESIA: Monitored anesthesia care. ASSISTANTS: SPECIMENS: PROCEDURES PERFORMED: 1. Upper endoscopy with biopsy. 2. Colonoscopy to the terminal ileum. DESCRIPTION OF PROCEDURE: A history and physical were performed. The risks and benefits of the procedure were explained to the patient. Informed consent was obtained. The patient was placed in the left lateral decubitus position. The Olympus video gastroscope was introduced into the esophagus, stomach, and duodenum. Examination was performed and the scope was removed. He tolerated the procedure well and was repositioned for colonoscopy. A digital rectal exam was performed and was found to be normal. The Olympus pediatric video colonoscope was introduced into the rectum and advanced to the cecum without difficulty. The cecum was identified by transillumination, palpation, and identification of ileocecal valve. Examination was performed and the scope was removed. He tolerated both procedures well and was returned to recovery in stable condition. FINDINGS: Upper endoscopy: 1. Esophagus: The esophagus was normal. The EG junction was irregular, consistent with gastroesophageal reflux disease. There was no esophagitis. Biopsies were obtained from the EG junction. 2. Stomach: The stomach showed no evidence of masses, ulcers, or polyps. Biopsies were obtained from the antrum to evaluate for H. Pylori. 3. Duodenum, the bulb and second portion were normal. Colonoscopy: The terminal ileum was examined and appeared normal. The visualized colonic mucosa was within normal limits. There was a moderate amount of liquid, plant like material, consistent with broccoli that the patient had ingested the day before the procedure, which limited the sensitivity examination for detection of small polyps. No polyps were identified. The mucosa was washed and suctioned as best possible. Retroflexed examination was normal. IMPRESSION: 1. Gastroesophageal reflux disease. 2. Normal colonoscopy, limited exam as above. RECOMMENDATIONS: 1. Follow up biopsy results. 2. Repeat colonoscopy is recommended in 10 years for average risk individuals. MD GUALBERTO Benson/MODL / [id number]
[2022-08-18 09:13] VITALS: BP 102/69; PULSE 84; RESP 18; O2SAT 97
[2022-08-18 09:22] VITALS: BP 110/68; PULSE 85; RESP 18; TEMP 36.4; O2SAT 97
== END 2022-08-18 10:18 | disposition home or self-care (01) ==
PROVIDERS: PCP Internal Medicine; Visit Provider Internal Medicine Gastroenterology
PROC: (CPT 45378; principal; 2022-08-18 08:10)
DX: Z12.11 Encounter for screening for malignant neoplasm of colon (principal); R13.10 Dysphagia, unspecified; K29.50 Unspecified chronic gastritis without bleeding; B96.81 Helicobacter pylori [H. pylori] as the cause of diseases classified elsewhere; K21.9 Gastro-esophageal reflux disease without esophagitis; I10 Essential (primary) hypertension; E78.00 Pure hypercholesterolemia, unspecified; G47.33 Obstructive sleep apnea (adult) (pediatric); Z79.1 Long term (current) use of non-steroidal anti-inflammatories (NSAID); Z79.899 Other long term (current) drug therapy
CPT/HCPCS: 45378; 43239; 88305; 88342

== ENCOUNTER → 2022-08-21 07:52 | Outpatient (BNVA) | payer MEDICAID, SELFPAY | PROVIDERS: PCP Internal Medicine; Visit Provider Physician Assistant | DX: Z47.89 Encounter for other orthopedic aftercare (principal); Z86.69 Personal history of other diseases of the nervous system and sense organs; Z87.39 Personal history of other diseases of the musculoskeletal system and connective tissue | CPT/HCPCS: 99212 ==

== ENCOUNTER 2022-08-24 08:19 | Observation (INO) | payer MEDICAID, SELFPAY ==
[2022-08-24] VITALS (7 sets, daily range): BP systolic 106–131; BP diastolic 71–92; PULSE 62–68; RESP 14–16; TEMP 36.2–36.6; O2SAT 16–100; BMI 39.5
--- NOTE | ~2022-08-24 | CT_ITS ---
EXAMINATION: CT LUMBAR SPINE WITHOUT CONTRAST CLINICAL INFORMATION: Back pain. Fall. Evaluate for disc herniation. COMPARISON: None available. TECHNIQUE: Multidetector helical imaging acquired in the axial plane with generation of reformatted acquisitions. This CT examination was performed using dose optimization techniques as appropriate, variously including the following: *Automated exposure control. *Adjustment of mA and/or kV according to patient size (this includes techniques or standardized protocols for targeted exams where dose is matched to indication/reason for exam; i.e. extremities or head). *Use of iterative reconstruction technique. DLP; 793 mGy-cm FINDINGS: There is vacuum disc phenomenon and mild disc space narrowing with a slight retrosubluxation and endplate spurring at the L3-L4 level. Small endplate Schmorl's nodes visible at the T12-L1 level. The osseous structures appear demineralized for patient age. No compression fractures are seen. There is mild disc space narrowing and a slight posterior subluxation as well at the L4-L5 level. The paraspinal soft tissues are unremarkable. The bladder is significantly distended, though only partially visualized. There are mild degenerative changes of the sacroiliac joints bilaterally. L1-L2: Mild disc bulge and very mild facet arthropathy without central canal stenosis or foraminal narrowing. L2-L3: Very mild disc bulge. No central canal stenosis or foraminal narrowing. L3-L4: Central vacuum disc phenomenon with endplate spurring and a diffuse disc bulge. Suspected right subarticular zone disc protrusion with potential mass effect upon the right L4 nerve root. Mild hypertrophic facet arthropathy without central canal stenosis. Underlying disc bulge and endplate spurring result in moderate bilateral foraminal encroachment. L4-L5: Mild loss of disc height and retrosubluxation with a concentric disc bulge and suspected shallow, broad-based central disc protrusion mildly impressing upon the ventral thecal sac. No central canal stenosis. Mild facet arthropathy. Bulging disc and endplate spurring result in moderate right foraminal encroachment. [id number] left foraminal narrowing due to bulging disc impressing upon the exiting left L4 nerve root. L5-S1: Mild disc bulge without central canal stenosis or significant foraminal encroachment. CT/CT lumbar spine wo IV con IMPRESSION: 1. Right subarticular zone disc protrusion at the L3-L4 level with potential mass effect upon the right L4 nerve root. Vacuum disc phenomenon and disc diffuse disc bulge with facet arthropathy. Moderate bilateral foraminal narrowing. 2. Mild loss of disc height and retrosubluxation at the L4-L5 level with a broad-based central disc protrusion. Moderate to severe left foraminal narrowing due to bulging disc impressing upon the left L4 nerve root. Moderate right foraminal narrowing. 3. Significantly distended bladder without apparent wall thickening, only partially visualized.
--- NOTE | 2022-08-24 09:37 | ED.BACK ---
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 Patient reports he was bending down to dry his feet today after showering and felt an immediate pulling sensation in his lower back. Patient reports the pain was severe causing him to fall forward. He did catch himself with his hands and did not sustain any additional injury. He reports the pain in his lower back is right-sided greater than left with radiation to both thighs. He denies any associated numbness, tingling, weakness in the lower extremities. He denies any numbness in the groin. He denies any bowel or bladder incontinence. He denies any fevers or chills. He denies any history of back pain. Patient reports since the fall he has been unable to ambulate due to pain. MD elicited complaint: back pain Related Data Home Medications Medication Instructions Recorded Confirmed escitalopram oxalate 5 mg tablet 5 mg PO DAILY 07/24/22 08/24/22 metoprolol succinate 50 mg 50 mg PO DAILY 07/24/22 08/24/22 tablet,extended release 24 hr rosuvastatin 40 mg tablet 40 mg PO BEDTIME 07/27/22 08/24/22 telmisartan 80 1 tab DAILY 07/27/22 08/24/22 mg-hydrochlorothiazide 25 mg tablet amlodipine 5 mg tablet 5 mg PO DAILY 08/24/22 08/24/22 sennosides 8.6 mg-docusate sodium 2 tab PO BEDTIME 08/24/22 08/24/22 50 mg tablet (Senexon-S) Allergies Allergy/AdvReac Type Severity Reaction Status Date / Time lisinopril Allergy Intermediate Cough Verified 08/21/22 08:01 penicillin V Allergy Unknown Unknown Verified 08/21/22 08:01 Review of Systems Review of Systems: Yes all other systems are reviewed and are negative Constitutional: Constitutional: Reports no additional constitutional complaints, Denies body ache(s), Denies chills, Denies fever(s), Denies headache(s) and Denies weakness Eyes: Eyes: Reports no additional eye complaints and Denies change in vision ENT: Reports system reviewed and no additional complaints, except as documented, Denies dizziness, Denies headache(s), Denies nasal congestion, Denies nasal discharge and Denies neck pain Cardiovascular: Cardiovascular: Reports no additional cardiovascular complaints, Denies chest pain, Denies leg edema and Denies dyspnea Respiratory: Respiratory: Reports no additional respiratory complaints, Denies cough and Denies dyspnea Gastrointestinal: Gastrointestinal: Reports no additional gastrointestinal complaints, Denies abdominal pain, Denies diarrhea, Denies nausea and Denies vomiting Genitourinary: Genitourinary: Denies urinary incontinence Musculoskeletal: Musculoskeletal: Reports no additional musculoskeletal complaints, Reports back pain, Denies arthralgias, Denies joint swelling, Denies neck pain, Denies numbness, Reports radiating pain into limb and Denies tingling Integumentary/Breasts: Skin/Breast: Reports system reviewed and no additional complaints, except as docu and Denies rash Neurologic: Reports system reviewed and no additional complaints, except as documented, Denies Abnormal speech present, Denies dizziness, Denies headache(s), Denies numbness, Denies tingling and Denies weakness PMFSH Past Medical History Attestation statement: The following information was validated with the patient. Source: old records reviewed and nursing notes reviewed Medical History High cholesterol HTN (hypertension) LENA (obstructive sleep apnea) Trigger finger Surgical History H/O inguinal hernia repair S/P eye surgery Family History Family History Mother No problems noted. Father No problems noted. 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 Physical Exam Vital Signs: Vital Signs: Last Vital Signs Temp 97.9 F 08/24/22 17:45 Pulse 67 08/24/22 17:45 Resp 16 08/24/22 17:45 BP 110/81 08/24/22 17:45 Pulse Ox 94 08/24/22 17:45 O2 Del Method Room Air 08/24/22 17:45 BMI result Body Mass Index 39.5 Const: General: cooperative, healthy appearing, comfortable and no acute distress Orientation/consciousness: patient oriented x3 Limitations: no limitations HEENT: Head: Yes normal to inspection Ears: hearing grossly normal bilaterally General nose exam: Normal external nose present Face and sinus: Yes normal facial exam Mouth: Normal oral and palatal mucosa present Throat: Yes posterior oropharynx normal Eyes: General: appearance normal, both eyes and all related structures Pupils: Equal, round and reactive pupils present Neck: Neck: Yes normal visual inspection Chest: Chest palpation & inspection: normal inspection of the chest Resp: Effort & Inspection: normal respiratory effort Auscultation: clear to auscultation bilaterally Cardio: Rate: regular rate Rhythm: regular rhythm Peripheral pulses: Peripheral pulses 2+ throughout GI: Inspection: Yes normal to inspection Palpation (GI): Soft to palpation and nontender Auscultation: normal bowel sounds Back/Spine/Pelvis: Other: There is tenderness on palpation over the lumbar spine with no step-offs or deformities. There is also pain on palpation over the lumbar soft tissue on the right side. Pain is worsened with right straight leg raise. Thoracic/Lumbar Spine: thoracic and lumbar spine normal to inspection Skin: General skin exam: no rashes or lesions noted Neuro: General: patient oriented x3, moves all extremities, no focal motor deficits, normal sensation to monofilament and Unable to assess gait Cranial nerves: Yes CN's II-XII intact bilaterally, Yes Equal, round and reactive pupils present, Yes Bilaterally intact EOM present, Yes Nystagmus not present, Yes Normal facial strength present and Yes Midline tongue present Cognition (Neuro): normal cognition Speech: No Abnormal speech present Gait exam (Neuro): Unable to assess gait Motor exam (neuro): 5/5 motor strength present throughout Sensory Exam: Normal double simultaneous stimulation for sensation Extrem: General: Yes normal to inspection, Yes no pedal edema and Yes no calf tenderness Course Course Course Narrative: 1130-Continued pain. Will re-medicate Reevaluation(s) Reevaluation #1: 1320-patient now able to sit up but unable to ambulate d/t the pain. Wll place PIV and give morphine IV, decadron and re-assess Reevaluation #2: 1630-Patient with continued pain, inability to ambulate d/t pain despite multiple rounds of analgesia. Will d/t with medicine for admission for intractable back pain for pain control. After medicine consult via phone a CT lumbar spine, additional dose of morphine, labs for admission. Reevaluation #3: 1830-I did speak to Dr Lua. Aware patient is pending CT lumbar spine. Still unable to ambulate d/t pain. WIll need admission. They will admit when CT results are back. Additional Reevaluation(s): 1900-Sign out to Radu NEIL pending CT results. 10:57pm patient admitted to hospital for intractable back pain. Medications Administered Discontinued Medications Generic Name Dose Route Start Last Admin Trade Name Primoq PRN Reason Stop Dose Admin Acetaminophen 975 mg 08/24/22 11:19 08/24/22 11:36 Acetaminophen 325 Mg Tablet PO 08/24/22 11:20 975 mg ONCE ONE Administration Dexamethasone Sodium Phosphate 10 mg 08/24/22 13:15 08/24/22 14:08 Dexamethasone Sod Phosphate 10 Mg/Ml Vial IVPUSH 08/24/22 13:16 10 mg ONCE ONE Administration Diazepam 2 mg 08/24/22 09:36 08/24/22 10:39 Diazepam 2 Mg Tablet PO 08/24/22 09:37 2 mg ONCE ONE Administration Ketorolac Tromethamine 60 mg 08/24/22 09:36 08/24/22 09:42 Ketorolac Tromethamine 60 Mg/2 Ml Vial IM 08/24/22 09:37 60 mg ONCE ONE Administration Morphine Sulfate 4 mg 08/24/22 13:15 08/24/22 14:07 Morphine Sulfate 4 Mg/Ml Cartridge IVPUSH 08/24/22 13:16 4 mg ONCE ONE Administration Protocol Morphine Sulfate 4 mg 08/24/22 16:27 08/24/22 16:49 Morphine Sulfate 4 Mg/Ml Cartridge IVPUSH 08/24/22 16:28 4 mg ONCE ONE Administration Protocol Oxycodone HCl 10 mg 08/24/22 11:19 08/24/22 11:36 Oxycodone Hcl Immed Release 5 Mg Tablet PO 08/24/22 11:20 10 mg ONCE ONE Administration Medical Decision Making Medical Decision Making MDM Narrative: 46-year-old male here with pain in the lower back which began today while bending over with subsequent fall due to pain. Patient unable to ambulate hence the fall due to pain. Patient in no overt neurological deficits or red flag symptoms on exam. Patient does have midline tenderness over the lumbar spine over the soft tissue on the right side. Patient denies hitting his back during the fall. Low concern for fracture. Likely herniated disc. Will provide analgesia and reassess Differential Diagnosis Differential Diagnoses: The differential diagnosis associated with the presentation includes herniated disc low concern for fracture, dissection, epidural hematoma, cord compression or cauda equina Admission/Observation Consideration of admission/observation: Escalation of care including admission/observation considered Intractable back pain needing IV pain control Consult Healthcare Provider Management of the patient was discussed with: Hospitalist I spoke to Dr Lua for admission for intractable back pain-requesting imaging of lumbar spine, additional round of IV pain control. They will then consult on patient for admission Lab Data 08/24/22 16:55 08/24/22 16:55 Labs: Lab Results 08/24/22 08/24/22 Range/Units 16:55 16:55 WBC 6.3 (4.8-10.8) X10*3/uL RBC 5.59 (4.60-5.80) X10*6/uL Hgb 15.5 (14.0-18.0) g/dl Hct 44.9 (42.0-52.0) % MCV 80.3 (80.0-98.0) fL MCH 27.7 (27.0-33.0) pg MCHC 34.5 (31.0-36.0) g/dl RDW 13.4 (11.0-16.0) % Plt Count 161 (160-400) X10*3/uL MPV 10.4 (9.4-12.4) fL Immature Gran % (Auto) 0.5 H (0.0-0.4) % Neut % (Auto) 89.4 H (45-73) % Lymph % (Auto) 7.5 L (20-40) % Mchenry % (Auto) 1.8 L (2-11) % Eos % (Auto) 0.6 (0-4) % Baso % (Auto) 0.2 (0-2) % Lymph # (Auto) 0.5 L (1.2-4.9) X10*3/uL Mchenry # (Auto) 0.1 (0.1-1.2) X10*3/uL Eos # (Auto) 0.0 (0.0-0.4) X10*3/uL Baso # (Auto) 0.0 (0.0-0.2) X10*3/uL Abs Immat Gran (auto) 0.03 (0.00-0.03) X10*3/uL Absolute Neuts (auto) 5.6 (2.0-8.3) x10*3/uL Absolute Nucleated RBC 0.000 (0.0-0.012) X10*3/uL Nucleated RBC % (auto) 0.0 (0.0-0.2) /100WBC Sodium 141 (135-145) mmol/L Potassium 4.7 (3.3-5.1) mmol/L Chloride 106 (96-108) mmol/L Carbon Dioxide 27 (22-29) mmol/L Anion Gap 13 (12-20) BUN 11 (9-16) mg/dL Creatinine 0.74 (0.5-1.4) mg/dL Estim Creat Clear Calc 153.9 Estimated GFR > 60 Random Glucose 121 H (60-115) mg/dL Calcium 9.5 (8.4-10.2) mg/dL Independent Historian Clinical information obtained from an independent historian. History obtained from or confirmed by: EMS Discharge Plan Discharge Clinical Impression: Intractable back pain Patient Disposition: Admitted As Inpatient
[2022-08-24] MEDS: Ketorolac Tromethamine 60 MG/2 ML VIAL IM (09:42)
[2022-08-24] MEDS: diazePAM 2 MG TABLET PO (10:39)
[2022-08-24] MEDS: oxyCODONE HCl Immed Release 5 MG TABLET 10 MG PO (11:36)
[2022-08-24] MEDS: Acetaminophen 325 MG TABLET 975 MG PO (11:36)
--- NOTE | 2022-08-24 11:36 | PC.NURSE ---
pt continues ot be in pain 10/10 and is unable to sit up/move without pain. medicating per mar
[2022-08-24] MEDS: Morphine Sulfate 4 MG/ML CARTRIDGE IVPUSH ×2 (14:07→16:49)
[2022-08-24] MEDS: dexAMETHasone sod phosphate 10 MG/ML VIAL IVPUSH (14:08)
--- NOTE | 2022-08-24 14:09 | PC.NURSE ---
pt is hardly able to stand without significant pain. assessed by CRYPTOLOGICAL TECHNICIAN. IV inserted and IV pain med administered per mar
[2022-08-24 17:00] LABS: Basophils Percent Auto 0.2 % (0-2); Eosinophils Percent Auto 0.6 % (0-4); Hematocrit 44.9 % (42.0-52.0); Hemoglobin 15.5 g/dl (14.0-18.0); Imm Gran Abs Auto 0.03 X10*3/uL (0.00-0.03); Imm Gran Pct Auto 0.5 % (0.0-0.4); Lymphocytes Absolute Auto 0.5 X10*3/uL (1.2-4.9); Lymphocytes Percent Auto 7.5 % (20-40); MANUAL DIFF FLAG NO; Mean Corpuscular HGB Conc 34.5 g/dl (31.0-36.0); Mean Corpuscular Hemoglobin 27.7 pg (27.0-33.0); Mean Corpuscular Volume 80.3 fL (80.0-98.0); Mean Platelet Volume 10.4 fL (9.4-12.4); Monocytes Absolute Auto 0.1 X10*3/uL (0.1-1.2); Monocytes Percent Auto 1.8 % (2-11); Neutrophils Absolute Auto 5.6 x10*3/uL (2.0-8.3); Neutrophils Percent Auto 89.4 % (45-73); Platelet Count 161 X10*3/uL (160-400); Red Blood Count 5.59 X10*6/uL (4.60-5.80); Red Cell Distribution Width 13.4 % (11.0-16.0); White Blood Count 6.3 X10*3/uL (4.8-10.8)
[2022-08-24 17:22] LABS: Anion Gap 13 (12-20); Blood Urea Nitrogen 11 mg/dL (9-16); Calcium 9.5 mg/dL (8.4-10.2); Carbon Dioxide 27 mmol/L (22-29); Chloride 106 mmol/L (96-108); Creatinine Clr Calc Pharmacy 153.9; Estimated Glomerular Filt Rate > 60; Glucose Random 121 mg/dL (60-115); Potassium 4.7 mmol/L (3.3-5.1); Sodium 141 mmol/L (135-145)
--- NOTE | 2022-08-24 17:56 | PC.NURSE ---
pt continues to be in pain whenever they try and move or stand/walk. when resting pain is minimal
--- NOTE | 2022-08-24 20:46 | PHA.MEDREC ---
Pharmacy Consult ? Medication Reconciliation Pharmacy has completed the medication reconciliation. Director Industrial Relations services utilized. Pt had daily med box on hand, unable to name specific medications but know he took 3 blood pressure meds, an antidepressant, a cholesterol med, and stool softener. Matched claim history. All BP meds were taken this morning
--- NOTE | 2022-08-24 21:07 | PM.IMHP ---
History of Present Illness Date of Service: 08/24/22 Attending physician on admission: Keshawn Pugh Chief Complaint: intractable back pain 46 year old male with history htn, hld, LENA not on CPAP (has appt for CPAP upcoming next month) presented to ED for evaluation of severe midline and right sided low back pain. He reports after showering this morning bent over to dry his feet and felt sudden onset severe midline low back pain with right-sided paraspinal pain. There is no radiation of the pain into the legs. He does endorse paresthesias in the lateral aspect of the thighs bilaterally which he states has been ongoing for several months. He denies any saddle anesthesia, bowel/bladder dysfunction, or weakness in the lower extremities bilaterally. He states the pain was so severe at that time, he fell forward to his knees but denies any head strike or loss of consciousness. He states he has had multiple falls recently related to instability in the knees bilaterally. He has been following with orthopedics for management of osteoarthritis of the knees and has received cortisone injections. He states he was supposed to start physical therapy outpatient but this has not yet begun. On arrival, vital signs stable. Hematology studies unremarkable. Renal function electrolyte levels normal. CT of the lumbar spine shows disc protrusions at the level of L3-L4 with potential mass effect upon the right L4 nerve root with vacuum disc phenomena and diffuse disc bulge with facet arthropathy and moderate bilateral foraminal narrowing. There is also mild loss of disc height and retro subluxation at L4-L5 with broad-based central disc protrusion and moderate to severe left foraminal narrowing due to the bulging disc impressing upon the left L4 nerve root and moderate right-sided foraminal narrowing. In the ED, pain has been managed with 60 mg ketorolac, morphine 4 mg x 2, 10 mg dexamethasone, 2 mg diazepam, and 10 mg oxycodone. Review of Systems Review of Systems: General: No fevers, malaise, unintentional weight loss Cardiovascular: No chest pain, palpitations, or leg edema Respiratory: No shortness of breath, wheezing, cough GI: No bowel incontinence : No urinary retention MSK: No myalgia. +back pain Neuro: No headaches, weakness. +B/l paresthesia thighs Skin: No rashes or lesions PMFSH Medical History High cholesterol HTN (hypertension) LENA (obstructive sleep apnea) Trigger finger Family History Mother No problems noted. Father No problems noted. 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 Meds Allergies Allergy/AdvReac Type Severity Reaction Status Date / Time lisinopril Allergy Intermediate Cough Verified 08/21/22 08:01 penicillin V Allergy Unknown Unknown Verified 08/21/22 08:01 Active Medications: Current Medications Acetaminophen (Acetaminophen 325 Mg Tablet) 650 mg PO Q6H PRN PRN Reason: Pain, Mild (Pain Scale 1-3) Amlodipine Besylate (Amlodipine Besylate 5 Mg Tablet) 5 mg PO DAILY [facility]; Protocol Escitalopram Oxalate (Escitalopram Oxalate 5 Mg Tablet) 5 mg PO DAILY [facility] Metoprolol Succinate (Metoprolol Succinate Er 50 Mg Tab.Er.24h) 50 mg PO DAILY [facility]; Protocol Morphine Sulfate (Morphine Sulfate 4 Mg/Ml Cartridge) 2 mg IVPUSH Q4H PRN; Protocol PRN Reason: Pain, Severe (Pain Scale 7-10) Non-Formulary Medication (Rosuvastatin) 40 mg PO BEDTIME [facility] Ondansetron HCl (Ondansetron Hcl 4 Mg/2 Ml Vial) 4 mg IVPUSH Q8H PRN PRN Reason: Nausea and Vomiting Oxycodone HCl (Oxycodone Hcl Immed Release 5 Mg Tablet) 5 mg PO Q6H PRN PRN Reason: Pain, Moderate(Pain Scale 4-6) Pharmacy Consult (Consult Rx Perform Med Rec) 1 each MISCELLANE ONCE PRN PRN Reason: Consult order Senna/Docusate Sodium (Sennosides/Docusate Sodium Tablet) 2 tab PO BEDTIME [facility] Sodium Chloride (0.9 % Sodium Chloride Flush 3 Ml Syringe) 3 ml IVFLUSH QSHIFT [facility] Tizanidine HCl (Tizanidine Hcl 4 Mg Tablet) 4 mg PO TID PRN PRN Reason: Muscle Spasm Home Medications Medication Instructions Recorded Confirmed Last Taken Type escitalopram oxalate 5 mg tablet 5 mg PO DAILY 07/24/22 08/24/22 08/24/22 History metoprolol succinate 50 mg 50 mg PO DAILY 07/24/22 08/24/22 08/24/22 History tablet,extended release 24 hr rosuvastatin 40 mg tablet 40 mg PO BEDTIME 07/27/22 08/24/22 08/23/22 History telmisartan 80 1 tab DAILY 07/27/22 08/24/22 08/24/22 History mg-hydrochlorothiazide 25 mg tablet amlodipine 5 mg tablet 5 mg PO DAILY 08/24/22 08/24/22 08/24/22 History sennosides 8.6 mg-docusate sodium 2 tab PO BEDTIME 08/24/22 08/24/22 08/23/22 History 50 mg tablet (Senexon-S) Physical Exam Vital Signs and Narrative: Vital Signs: Last Vital Signs Temp 97.9 F 08/24/22 17:45 Pulse 67 08/24/22 17:45 Resp 16 08/24/22 17:45 BP 110/81 08/24/22 17:45 Pulse Ox 94 08/24/22 17:45 O2 Del Method Room Air 08/24/22 17:45 BMI result Body Mass Index 39.5 Constitutional - Awake and Alert, No apparent distress Eyes - PERRLA, EOMI Cardiovascular - S1S2, RRR, No edema Respiratory - Normal lung expansion, Normal respiratory effort, No respiratory distress, CTA bilaterally Gastrointestinal - NT / ND; +BS; No rebound or guarding Extremities - no calf tenderness bilaterally, no swelling Musculoskeletal - Normal inspection. Midline ttp at the level of L4-L5 with right sided paraspinal tenderness and palpable spasm Skin - Warm/Dry Neurological - Alert & oriented x3, 5/5 strength BLE. Decreased sensation lateral thighs bilaterally Psychological - Appropriate affect Results Labs 08/24/22 16:55 08/24/22 16:55 Labs: Laboratory Results - last 24 hr 08/24/22 08/24/22 16:55 16:55 MCV 80.3 MCH 27.7 MCHC 34.5 RDW 13.4 Plt Count 161 MPV 10.4 Immature Gran % (Auto) 0.5 H Neut % (Auto) 89.4 H Lymph % (Auto) 7.5 L [place] % (Auto) 1.8 L Eos % (Auto) 0.6 Baso % (Auto) 0.2 Lymph # (Auto) 0.5 L [place] # (Auto) 0.1 Eos # (Auto) 0.0 Baso # (Auto) 0.0 Abs Immat Gran (auto) 0.03 Absolute Neuts (auto) 5.6 Absolute Nucleated RBC 0.000 Nucleated RBC % (auto) 0.0 Anion Gap 13 Estim Creat Clear Calc 153.9 Estimated GFR > 60 Random Glucose 121 H Calcium 9.5 Imaging Radiologist's Impressions: Impressions Lumbar Spine CT 08/24/22 18:51 IMPRESSION: 1. Right subarticular zone disc protrusion at the L3-L4 level with potential mass effect upon the right L4 nerve root. Vacuum disc phenomenon and disc diffuse disc bulge with facet arthropathy. Moderate bilateral foraminal narrowing. 2. Mild loss of disc height and retrosubluxation at the L4-L5 level with a broad-based central disc protrusion. Moderate to severe left foraminal narrowing due to bulging disc impressing upon the left L4 nerve root. Moderate right foraminal narrowing. 3. Significantly distended bladder without apparent wall thickening, only partially visualized. Assessment and Plan (1) Intractable back pain: Status: Acute Plan 46 year old male with history htn, hld, LENA not on CPAP (has appt for CPAP upcoming next month) to be observed for management of intractable low back pain. # intractable low back pain -CT of the lumbar spine shows disc protrusions at the level of L3-L4 with potential mass effect upon the right L4 nerve root with vacuum disc phenomena and diffuse disc bulge with facet arthropathy and moderate bilateral foraminal narrowing. There is also mild loss of disc height and retro subluxation at L4-L5 with broad-based central disc protrusion and moderate to severe left foraminal narrowing due to the bulging disc impressing upon the left L4 nerve root and moderate right-sided foraminal narrowing. - Pain management using pain scale with oxycodone, morphine. Will also continue scheduled ketorolac -tizanidine p.r.n., lidocaine patch -PT evaluation given recurrent falls with knee instability -needs outpatient follow-up with Neurosurgery #Paresthesias b/l lateral thighs -?rt CT findings vs meralgia paresthetica -Outpt follow up # recurrent falls -likely secondary to osteoarthritis of the knees bilaterally -PT evaluation -outpatient follow-up with Orthopedics #HTN- reasonably controlled -continue home antihypertensive # hyperlipidemia -continue statin # LENA -Not currently on CPAP, outpt follow up #Severe obesity with BMI >39 -weight loss efforts advised DVT prophylaxis- SCPs, early ambulation Full code Time Spent With Patient Time: Total time managing care of this patient today ____ minutes. Quality Stroke Does the patient have a stroke diagnosis?: No VTE Prior VTE?: No VTE Risk Level:: Medical - moderate - high VTE Device Contraindication: N/A - Device Ordered VTE Drug Contraindication: Treatment Not Indicated
[2022-08-24] MEDS: Atorvastatin Calcium 80 MG TABLET PO (23:03)
[2022-08-24] MEDS: Sennosides/Docusate Sodium TABLET 2 TAB PO (23:03)
[2022-08-24] MEDS: Ketorolac Tromethamine 15 MG/ML VIAL IVPUSH (23:03)
[2022-08-24] MEDS: 0.9 % Sodium Chloride Flush 3 ML SYRINGE IVFLUSH (23:04)
--- NOTE | 2022-08-25 01:21 | PC.NURSE ---
Nurse to nurse report given to AMBER Castillo. Pt being transferred to room 353 and aware of plan of care.
[2022-08-25 01:43] VITALS: BP 125/84; PULSE 57; RESP 16; TEMP 36.2; O2SAT 97
[2022-08-25 01:44] VITALS: BMI 38.9
[2022-08-25] MEDS: Ketorolac Tromethamine 15 MG/ML VIAL IVPUSH ×2 (04:11→08:32)
[2022-08-25 07:41] VITALS: BP 130/73; PULSE 58; RESP 18; TEMP 36; O2SAT 96
[2022-08-25] MEDS: Valsartan 160 MG TABLET PO (08:32)
[2022-08-25] MEDS: 0.9 % Sodium Chloride Flush 3 ML SYRINGE IVFLUSH ×3 (08:32→19:55)
[2022-08-25] MEDS: amLODIPine Besylate 5 MG TABLET PO (08:32)
[2022-08-25] MEDS: Metoprolol Succinate ER 50 MG TAB.ER.24H PO (08:32)
[2022-08-25] MEDS: Escitalopram Oxalate 5 MG TABLET PO (08:32)
[2022-08-25] MEDS: hydroCHLOROthiazide 25 MG TABLET PO (08:32)
[2022-08-25] MEDS: Lidocaine 4 % Patch ADH..PATCH 1 PATCH TRANSDERMA (08:36)
--- NOTE | 2022-08-25 11:10 | MHC.CM.PN ---
pt lives alone had no servceis is independent pt may need assist with transport home pt plan is home no servcies
[2022-08-25 11:22] VITALS: BP 134/74; PULSE 62; RESP 16; TEMP 36.4; O2SAT 94
--- NOTE | 2022-08-25 12:09 | HO.PM.IMPN ---
Subjective Subjective Date of Service: 08/25/22 Interval History: Seen and evaluated thig morning still reporting significant low back pain Less parasthesia able to participate with PT no other overnight events Review of Systems Review of Systems: Yes Unobtainable due to mental status Physical Exam Vital Signs: Vital Signs: Last Vital Signs Temp 97.6 F 08/25/22 11:22 Pulse 62 08/25/22 11:22 Resp 16 08/25/22 11:22 BP 134/74 08/25/22 11:22 Pulse Ox 94 08/25/22 11:22 O2 Del Method Room Air 08/25/22 11:22 BMI result Body Mass Index 38.9 Const: Other: Constitutional : Awake, interactive, not in distress Neck : Normal inspection, Supple Cardiovascular : RRR, no JVP, no lower extremity edema Respiratory : good bilateral air entry, no crackles, wheezes or rhonchi Gastrointestinal: soft, lax, Normal bowel sounds, Non tender Skin : Warm, Dry Neurological : Alert & oriented x3, No focal deficit , CN 2-12 within normal, good sensation LEs, positive leg raise test on right side Objective Data Active Medications Acetaminophen (Acetaminophen 325 Mg Tablet) 650 mg PO Q6H PRN PRN Reason: Pain, Mild (Pain Scale 1-3) Amlodipine Besylate (Amlodipine Besylate 5 Mg Tablet) 5 mg PO DAILY [facility]; Protocol Last Admin: 08/25/22 08:32 Dose: 5 mg Documented By: PARRIS Atorvastatin Calcium (Atorvastatin Calcium 80 Mg Tablet) 80 mg PO BEDTIME [facility] Last Admin: 08/24/22 23:03 Dose: 80 mg Documented By: YASMINE Escitalopram Oxalate (Escitalopram Oxalate 5 Mg Tablet) 5 mg PO DAILY [facility] Last Admin: 08/25/22 08:32 Dose: 5 mg Documented By: PARRIS Hydrochlorothiazide (Hydrochlorothiazide 25 Mg Tablet) 25 mg PO DAILY [facility]; Protocol Last Admin: 08/25/22 08:32 Dose: 25 mg Documented By: PARRIS Ketorolac Tromethamine (Ketorolac Tromethamine 15 Mg/Ml Vial) 15 mg IVPUSH Q6H [facility] Last Admin: 08/25/22 08:32 Dose: 15 mg Documented By: PARRIS Lidocaine (Lidocaine 4 % Patch Adh..Patch) 1 patch TRANSDERMA DAILY [facility]; Protocol Last Admin: 08/25/22 08:36 Dose: 1 patch Documented By: PARRIS Metoprolol Succinate (Metoprolol Succinate Er 50 Mg Tab.Er.24h) 50 mg PO DAILY [facility]; Protocol Last Admin: 08/25/22 08:32 Dose: 50 mg Documented By: PARRIS Morphine Sulfate (Morphine Sulfate 4 Mg/Ml Cartridge) 2 mg IVPUSH Q4H PRN; Protocol PRN Reason: Pain, Severe (Pain Scale 7-10) Ondansetron HCl (Ondansetron Hcl 4 Mg/2 Ml Vial) 4 mg IVPUSH Q8H PRN PRN Reason: Nausea and Vomiting Oxycodone HCl (Oxycodone Hcl Immed Release 5 Mg Tablet) 5 mg PO Q6H PRN PRN Reason: Pain, Moderate(Pain Scale 4-6) Pharmacy Consult (Consult Rx Perform Med Rec) 1 each MISCELLANE ONCE PRN PRN Reason: Consult order Senna/Docusate Sodium (Sennosides/Docusate Sodium Tablet) 2 tab PO BEDTIME [facility] Last Admin: 08/24/22 23:03 Dose: 2 tab Documented By: YASMINE Sodium Chloride (0.9 % Sodium Chloride Flush 3 Ml Syringe) 3 ml IVFLUSH QSHIFT [facility] Last Admin: 08/25/22 08:32 Dose: 3 ml Documented By: PARRIS Tizanidine HCl (Tizanidine Hcl 4 Mg Tablet) 4 mg PO TID PRN PRN Reason: Muscle Spasm Valsartan (Valsartan 160 Mg Tablet) 160 mg PO DAILY [facility]; Protocol Last Admin: 08/25/22 08:32 Dose: 160 mg Documented By: PARRIS Labs 08/24/22 16:55 08/24/22 16:55 Labs: Laboratory Results - last 24 hr 08/24/22 08/24/22 16:55 16:55 MCV 80.3 MCH 27.7 MCHC 34.5 RDW 13.4 Plt Count 161 MPV 10.4 Immature Gran % (Auto) 0.5 H Neut % (Auto) 89.4 H Lymph % (Auto) 7.5 L [place] % (Auto) 1.8 L Eos % (Auto) 0.6 Baso % (Auto) 0.2 Lymph # (Auto) 0.5 L [place] # (Auto) 0.1 Eos # (Auto) 0.0 Baso # (Auto) 0.0 Abs Immat Gran (auto) 0.03 Absolute Neuts (auto) 5.6 Absolute Nucleated RBC 0.000 Nucleated RBC % (auto) 0.0 Anion Gap 13 Estim Creat Clear Calc 153.9 Estimated GFR > 60 Random Glucose 121 H Calcium 9.5 Assessment and Plan (1) Intractable back pain: Status: Acute (2) Protrusion of lumbar intervertebral disc: Status: Acute Plan 46 year old male with history htn, hld, LENA not on CPAP (has appt for CPAP upcoming next month) to be observed for management of intractable low back pain. # intractable low back pain 2/2 Disc prolapse with parasthesia CT of the lumbar spine shows disc protrusions at the level of L3-L4 with potential mass effect upon the right L4 nerve root with vacuum disc phenomena among other findings Pain management using pain scale with oxycodone, morphine. Motrin and Tylenol PO tizanidine p.r.n. PT evaluation Discussed with Neurosurgery, if no improvement in 6 weeks will need to follow as outpatient # recurrent falls likely secondary to osteoarthritis of the knees bilaterally PT evaluation outpatient follow-up with Orthopedics #HTN controlled continue home antihypertensive # hyperlipidemia continue statin # LENA Not currently on CPAP, outpt follow up #Severe obesity with BMI >39 weight loss efforts advised DVT prophylaxis SCDs, early ambulation Time Spent With Patient Time: Total time managing care of this patient today ____ minutes. Quality Stroke Does the patient have a stroke diagnosis?: No VTE Prior VTE?: No VTE Risk Level:: Medical - moderate - high VTE Device Contraindication: N/A - Device Ordered VTE Drug Contraindication: Treatment Not Indicated
[2022-08-25] MEDS: Acetaminophen 325 MG TABLET 975 MG PO ×2 (12:54→19:51)
[2022-08-25] MEDS: Omeprazole 40 MG CAPSULE.DR PO (12:54)
[2022-08-25] MEDS: Ibuprofen 400 MG TABLET PO ×2 (12:55→16:38)
[2022-08-25 15:35] VITALS: BP 98/55; PULSE 59; RESP 18; TEMP 36.2; O2SAT 97
[2022-08-25] MEDS: oxyCODONE HCl Immed Release 5 MG TABLET PO (16:38)
[2022-08-25] MEDS: Sennosides/Docusate Sodium TABLET 2 TAB PO (19:51)
[2022-08-25] MEDS: Atorvastatin Calcium 80 MG TABLET PO (19:51)
[2022-08-25] MEDS: Morphine Sulfate 4 MG/ML CARTRIDGE 2 MG IVPUSH (19:52)
[2022-08-25] MEDS: TiZANidine HCL 4 MG TABLET PO (19:52)
[2022-08-25 20:00] VITALS: BP 108/63; PULSE 57; RESP 18; TEMP 36; O2SAT 94
[2022-08-26 02:58] VITALS: BP 105/66; PULSE 61; RESP 14; TEMP 36.2
[2022-08-26] MEDS: Omeprazole 40 MG CAPSULE.DR PO (05:26)
[2022-08-26] MEDS: oxyCODONE HCl Immed Release 5 MG TABLET PO ×3 (05:32→18:04)
[2022-08-26 07:31] VITALS: BP 108/68; PULSE 56; RESP 16; TEMP 36; O2SAT 98
[2022-08-26] MEDS: Lidocaine 4 % Patch ADH..PATCH 1 PATCH TRANSDERMA (08:46)
[2022-08-26] MEDS: Acetaminophen 325 MG TABLET 975 MG PO ×3 (08:47→20:20)
[2022-08-26] MEDS: hydroCHLOROthiazide 25 MG TABLET PO (08:48)
[2022-08-26] MEDS: amLODIPine Besylate 5 MG TABLET PO (08:49)
[2022-08-26] MEDS: Metoprolol Succinate ER 50 MG TAB.ER.24H PO (08:49)
[2022-08-26] MEDS: Valsartan 160 MG TABLET PO (08:49)
[2022-08-26] MEDS: Ibuprofen 400 MG TABLET PO ×3 (08:49→16:12)
[2022-08-26] MEDS: Escitalopram Oxalate 5 MG TABLET PO (08:49)
[2022-08-26] MEDS: 0.9 % Sodium Chloride Flush 3 ML SYRINGE IVFLUSH ×3 (08:52→20:21)
--- NOTE | 2022-08-26 10:58 | P.PNIM_ITS ---
Subjective Subjective Date of Service: 08/26/22 Interval History: back pain Physical Exam Vital Signs: Vital Signs: Last Vital Signs Temp 96.8 F 08/26/22 07:31 Pulse 56 08/26/22 07:31 Resp 16 08/26/22 07:31 BP 108/68 08/26/22 07:31 Pulse Ox 98 08/26/22 07:31 O2 Del Method Room Air 08/26/22 07:31 BMI result Body Mass Index 38.9 General: AO X 3, no acute distress Resp: CTA bilateral, no accessory muscles used CVS: S1,S2,RRR GI: soft, non tender, non distended Neuro: motor grossly intact, alert Psych: appropriate affect, appropriate insight Objective Data Active Medications Acetaminophen (Acetaminophen 325 Mg Tablet) 975 mg PO TID ON [facility] OF [facility] Last Admin: 08/26/22 08:47 Dose: 975 mg Documented By: LUCY Amlodipine Besylate (Amlodipine Besylate 5 Mg Tablet) 5 mg PO DAILY ON [facility] OF [facility]; Protocol Last Admin: 08/26/22 08:49 Dose: 5 mg Documented By: LUCY Atorvastatin Calcium (Atorvastatin Calcium 80 Mg Tablet) 80 mg PO BEDTIME [facility] Last Admin: 08/25/22 19:51 Dose: 80 mg Documented By: PINO Escitalopram Oxalate (Escitalopram Oxalate 5 Mg Tablet) 5 mg PO DAILY [facility] OF [facility] Last Admin: 08/26/22 08:49 Dose: 5 mg Documented By: LUCY Hydrochlorothiazide (Hydrochlorothiazide 25 Mg Tablet) 25 mg PO DAILY [facility] OF [facility]; Protocol Last Admin: 08/26/22 08:48 Dose: 25 mg Documented By: LUCY Ibuprofen (Ibuprofen 400 Mg Tablet) 400 mg PO TIDWM ON LICENSE OF [facility] Last Admin: 08/26/22 08:49 Dose: 400 mg Documented By: LUCY Lidocaine (Lidocaine 4 % Patch Adh..Patch) 1 patch TRANSDERMA DAILY ON [facility] OF [facility]; Protocol Last Admin: 08/26/22 08:46 Dose: 1 patch Documented By: LUCY Metoprolol Succinate (Metoprolol Succinate Er 50 Mg Tab.Er.24h) 50 mg PO DAILY [facility]; Protocol Last Admin: 08/26/22 08:49 Dose: 50 mg Documented By: LUCY Morphine Sulfate (Morphine Sulfate 4 Mg/Ml Cartridge) 2 mg IVPUSH Q4H PRN; Protocol PRN Reason: Pain, Severe (Pain Scale 7-10) Last Admin: 08/25/22 19:52 Dose: 2 mg Documented By: PINO Omeprazole (Omeprazole 40 Mg Capsule.Dr) 40 mg PO DAILY@0630 ON LICENSE OF [facility] Last Admin: 08/26/22 05:26 Dose: 40 mg Documented By: PINO Ondansetron HCl (Ondansetron Hcl 4 Mg/2 Ml Vial) 4 mg IVPUSH Q8H PRN PRN Reason: Nausea and Vomiting Oxycodone HCl (Oxycodone Hcl Immed Release 5 Mg Tablet) 5 mg PO Q6H PRN PRN Reason: Pain, Moderate(Pain Scale 4-6) Last Admin: 08/26/22 05:32 Dose: 5 mg Documented By: PINO Pharmacy Consult (Consult Rx Perform Med Rec) 1 each MISCELLANE ONCE PRN PRN Reason: Consult order Senna/Docusate Sodium (Sennosides/Docusate Sodium Tablet) 2 tab PO BEDTIME ON [facility] OF [facility] Last Admin: 08/25/22 19:51 Dose: 2 tab Documented By: PINO Sodium Chloride (0.9 % Sodium Chloride Flush 3 Ml Syringe) [facility] Last Admin: 08/26/22 08:52 Dose: 3 ml Documented By: LUCY Tizanidine HCl (Tizanidine Hcl 4 Mg Tablet) 4 mg PO TID PRN PRN Reason: Muscle Spasm Last Admin: 08/25/22 19:52 Dose: 4 mg Documented By: PINO Valsartan (Valsartan 160 Mg Tablet) 160 mg PO DAILY [facility] OF [facility]; Protocol Last Admin: 08/26/22 08:49 Dose: 160 mg Documented By: LUCY Labs 08/24/22 16:55 08/24/22 16:55 Assessment and Plan (1) Intractable back pain: Status: Acute (2) Protrusion of lumbar intervertebral disc: Status: Acute Plan 46M with PMH htn, hld, LENA not on CPAP (has appt for CPAP upcoming next month) presented with intractable low back pain. acute intractable low back pain 2/2 Disc prolapse with parasthesia CT of the lumbar spine shows disc protrusions at the level of L3-L4 with potential mass effect upon the right L4 nerve root with vacuum disc phenomena among other findings oxycodone Motrin and Tylenol PO tizanidine p.r.n. PT recommending snf Discussed with Neurosurgery, if no improvement in 6 weeks will need to follow as outpatient recurrent falls likely secondary to osteoarthritis of the knees bilaterally outpatient follow-up with Orthopedics HTN controlled continue home antihypertensive hyperlipidemia continue statin LENA Not currently on CPAP, outpt follow up Severe obesity with BMI >39 weight loss efforts advised DVT prophylaxis SCDs, early ambulation reason for continued hospitalization:placement Time Spent With Patient Time: Total time managing care of this patient today ____ minutes. Quality Stroke Does the patient have a stroke diagnosis?: No VTE Prior VTE?: No VTE Risk Level:: Medical - moderate - high VTE Device Contraindication: N/A - Device Ordered VTE Drug Contraindication: Treatment Not Indicated
--- NOTE | 2022-08-26 11:00 | PM.DS ---
DS: Providers Provider Date of Service: 08/26/22 Date of admission: 08/24/22 20:59 Primary care physician: Heaven Reynolds MD DS: Diagnosis Discharge Diagnosis (1) Intractable back pain: Status: Acute (2) Protrusion of lumbar intervertebral disc: Status: Acute DS: Summary Hospital Course Hospital Course: from initial hpi: Chief Complaint: intractable back pain 46 year old male with history htn, hld, LENA not on CPAP (has appt for CPAP upcoming next month) presented to ED for evaluation of severe midline and right sided low back pain. He reports after showering this morning bent over to dry his feet and felt sudden onset severe midline low back pain with right-sided paraspinal pain.? There is no radiation of the pain into the legs.? He does endorse paresthesias in the lateral aspect of the thighs bilaterally which he states has been ongoing for several months.? He denies any saddle anesthesia, bowel/bladder dysfunction, or weakness in the lower extremities bilaterally.? He states the pain was so severe at that time, he fell forward to his knees but denies any head strike or loss of consciousness.? He states he has had multiple falls recently related to instability in the knees bilaterally.? He has been following with orthopedics for management of osteoarthritis of the knees and has received cortisone injections.? He states he was supposed to start physical therapy outpatient but this has not yet begun. On arrival, vital signs stable.? Hematology studies unremarkable.? Renal function electrolyte levels normal.? CT of the lumbar spine shows disc protrusions at the level of L3-L4 with potential mass effect upon the right L4 nerve root with vacuum disc phenomena and diffuse disc bulge with facet arthropathy and moderate bilateral foraminal narrowing.? There is also mild loss of disc height and retro subluxation at L4-L5 with broad-based central disc protrusion and moderate to severe left foraminal narrowing due to the bulging disc impressing upon the left L4 nerve root and moderate right-sided foraminal narrowing.? In the ED, pain has been managed with 60 mg ketorolac, morphine 4 mg x 2, 10 mg dexamethasone, 2 mg diazepam, and 10 mg oxycodone. hospital course: Patient was admitted for acute intractable low back pain secondary to disc prolapse with paresthesias. CT of lumbar spine showed disc protrusion at the level of L3 and L4 with potential mass effect on the right L4 nerve root with vacuum disc phenomena. He was treated with opiates and NSAIDs with significant improvement. He was seen by PT recommended short-term rehab. Case was discussed with nurse surgery recommended outpatient follow-up if no improvement in 6 weeks. For hypertension he was continued on home antihypertensive, for hld conitnue on statin. for lena will follow up outpatient. for severe obesity weight loss recommended Time Spent with Patient Time attestation: Total time managing care of this patient today ____ minutes. Discharge coordination time: Greater than 30 minutes Quality: Safe Use of Opioids Does Pt have an Active Cancer Diagnosis on the Problem List?: No Quality: Stroke Does the patient have a stroke diagnosis?: No Physical Exam Vital Signs: Vital Signs: Last Vital Signs Temp 96.8 F 08/26/22 07:31 Pulse 56 08/26/22 07:31 Resp 16 08/26/22 07:31 BP 108/68 08/26/22 07:31 Pulse Ox 98 08/26/22 07:31 O2 Del Method Room Air 08/26/22 07:31 BMI result Body Mass Index 38.9 Discharge Plan Discharge Anticipated Discharge Date/Time: 08/26/22 10:56 Patient Disposition: Xfer SNF Discharge Diagnosis: back pain Referrals: Heaven Reynolds MD [Primary Care Provider] - 5 days Discharge Medications: New tizanidine 4 mg Tablet 4 mg PO TID PRN (Reason: Muscle Spasm) Qty: 0 0RF oxycodone 5 mg Tablet 5 mg PO Q6H PRN (Reason: Pain, Moderate(Pain Scale 4-6)) Qty: 15 0RF Rx Instructions: Partial Fill upon patient request. Continued rosuvastatin 40 mg tablet 40 mg PO BEDTIME telmisartan-hydrochlorothiazid 80-25 mg tablet 1 tab DAILY sennosides-docusate sodium [Senexon-S] 8.6-50 mg tablet 2 tab PO BEDTIME amlodipine 5 mg tablet 5 mg PO DAILY escitalopram oxalate 5 mg tablet 5 mg PO DAILY metoprolol succinate 50 mg tablet extended release 24 hr 50 mg PO DAILY Discharge Orders: Discharge Order (Routine); Ordered 08/26/22 Ordered By: Jessee Saleh Diet: Advance to usual diet Activity on Discharge: As tolerated Stand Alone Forms: Patient Portal Discharge page Care Plan Goals: recovery Health Concerns: back pain Plan of Treatment: rehab, if no imprvoement follow up with neurosurgery or spinal ortho as outpatient Assessment: see above Patient Instructions: Back Pain (ED)
[2022-08-26 16:00] VITALS: BP 96/51; PULSE 58; RESP 20; TEMP 36; O2SAT 95
[2022-08-26 19:39] VITALS: BP 116/69; PULSE 63; RESP 18; TEMP 37; O2SAT 97
[2022-08-26] MEDS: Sennosides/Docusate Sodium TABLET 2 TAB PO (20:20)
[2022-08-26] MEDS: Atorvastatin Calcium 80 MG TABLET PO (20:20)
[2022-08-26] MEDS: TiZANidine HCL 4 MG TABLET PO (20:20)
[2022-08-27 03:21] VITALS: BP 108/65; PULSE 62; RESP 16; TEMP 36.4; O2SAT 94
[2022-08-27] MEDS: Omeprazole 40 MG CAPSULE.DR PO (05:47)
[2022-08-27] MEDS: oxyCODONE HCl Immed Release 5 MG TABLET PO ×3 (05:49→19:56)
[2022-08-27 07:06] VITALS: BP 112/75; PULSE 64; RESP 18; TEMP 36.9; O2SAT 94
[2022-08-27] MEDS: hydroCHLOROthiazide 25 MG TABLET PO (07:18)
[2022-08-27] MEDS: Metoprolol Succinate ER 50 MG TAB.ER.24H PO (07:18)
[2022-08-27] MEDS: Lidocaine 4 % Patch ADH..PATCH 1 PATCH TRANSDERMA (07:18)
[2022-08-27] MEDS: Ibuprofen 400 MG TABLET PO ×3 (07:19→16:01)
[2022-08-27] MEDS: Escitalopram Oxalate 5 MG TABLET PO (07:19)
[2022-08-27] MEDS: amLODIPine Besylate 5 MG TABLET PO (07:19)
[2022-08-27] MEDS: Acetaminophen 325 MG TABLET 975 MG PO ×3 (07:19→19:56)
[2022-08-27] MEDS: Valsartan 160 MG TABLET PO (07:19)
[2022-08-27] MEDS: 0.9 % Sodium Chloride Flush 3 ML SYRINGE IVFLUSH ×3 (07:21→19:58)
--- NOTE | 2022-08-27 10:46 | HO.PM.IMPN ---
Subjective Subjective Date of Service: 08/27/22 Interval History: small improvement Physical Exam Vital Signs: Vital Signs: Last Vital Signs Temp 98.5 F 08/27/22 07:06 Pulse 64 08/27/22 07:06 Resp 18 08/27/22 07:06 BP 112/75 08/27/22 07:06 Pulse Ox 94 08/27/22 07:06 O2 Del Method Room Air 08/27/22 07:06 BMI result Body Mass Index 38.9 Objective Data Active Medications Acetaminophen (Acetaminophen 325 Mg Tablet) 975 mg PO TID [facility] Last Admin: 08/27/22 07:19 Dose: 975 mg Documented By: PARRIS Amlodipine Besylate (Amlodipine Besylate 5 Mg Tablet) 5 mg PO DAILY [facility]; Protocol Last Admin: 08/27/22 07:19 Dose: 5 mg Documented By: PARRIS Atorvastatin Calcium (Atorvastatin Calcium 80 Mg Tablet) 80 mg PO BEDTIME [facility] Last Admin: 08/26/22 20:20 Dose: 80 mg Documented By: PINO Escitalopram Oxalate (Escitalopram Oxalate 5 Mg Tablet) 5 mg PO DAILY [facility] Last Admin: 08/27/22 07:19 Dose: 5 mg Documented By: PARRIS Hydrochlorothiazide (Hydrochlorothiazide 25 Mg Tablet) 25 mg PO DAILY [facility]; Protocol Last Admin: 08/27/22 07:18 Dose: 25 mg Documented By: PARRIS Ibuprofen (Ibuprofen 400 Mg Tablet) 400 mg PO TIDWM [facility] Last Admin: 08/27/22 07:19 Dose: 400 mg Documented By: PARRIS Lidocaine (Lidocaine 4 % Patch Adh..Patch) 1 patch TRANSDERMA DAILY [facility]; Protocol Last Admin: 08/27/22 07:18 Dose: 1 patch Documented By: PARRIS Metoprolol Succinate (Metoprolol Succinate Er 50 Mg Tab.Er.24h) 50 mg PO DAILY [facility]; Protocol Last Admin: 08/27/22 07:18 Dose: 50 mg Documented By: PARRIS Morphine Sulfate (Morphine Sulfate 4 Mg/Ml Cartridge) 2 mg IVPUSH Q4H PRN; Protocol PRN Reason: Pain, Severe (Pain Scale 7-10) Last Admin: 08/25/22 19:52 Dose: 2 mg Documented By: PINO Omeprazole (Omeprazole 40 Mg Capsule.Dr) 40 mg PO DAILY@0630 [facility] Last Admin: 08/27/22 05:47 Dose: 40 mg Documented By: PINO Ondansetron HCl (Ondansetron Hcl 4 Mg/2 Ml Vial) 4 mg IVPUSH Q8H PRN PRN Reason: Nausea and Vomiting Oxycodone HCl (Oxycodone Hcl Immed Release 5 Mg Tablet) 5 mg PO Q6H PRN PRN Reason: Pain, Moderate(Pain Scale 4-6) Last Admin: 08/27/22 05:49 Dose: 5 mg Documented By: PINO Pharmacy Consult (Consult Rx Perform Med Rec) 1 each MISCELLANE ONCE PRN PRN Reason: Consult order Senna/Docusate Sodium (Sennosides/Docusate Sodium Tablet) 2 tab PO BEDTIME [facility] Last Admin: 08/26/22 20:20 Dose: 2 tab Documented By: PINO Sodium Chloride (0.9 % Sodium Chloride Flush 3 Ml Syringe) 3 ml IVFLUSH QSHIFT [facility] Last Admin: 08/27/22 07:21 Dose: 3 ml Documented By: PARRIS Tizanidine HCl (Tizanidine Hcl 4 Mg Tablet) 4 mg PO TID PRN PRN Reason: Muscle Spasm Last Admin: 08/26/22 20:20 Dose: 4 mg Documented By: PINO Valsartan (Valsartan 160 Mg Tablet) 160 mg PO DAILY [facility]; Protocol Last Admin: 08/27/22 07:19 Dose: 160 mg Documented By: PARRIS Labs 08/24/22 16:55 08/24/22 16:55 Assessment and Plan (1) Intractable back pain: Status: Acute (2) Protrusion of lumbar intervertebral disc: Status: Acute Plan 46M with PMH htn, hld, LENA not on CPAP (has appt for CPAP upcoming next month) presented with intractable low back pain. acute intractable low back pain 2/2 Disc prolapse with parasthesia CT of the lumbar spine shows disc protrusions at the level of L3-L4 with potential mass effect upon the right L4 nerve root with vacuum disc phenomena among other findings oxycodone Motrin and Tylenol PO tizanidine p.r.n. PT recommending snf Discussed with Neurosurgery, if no improvement in 6 weeks will need to follow as outpatient recurrent falls likely secondary to osteoarthritis of the knees bilaterally outpatient follow-up with Orthopedics HTN controlled continue home antihypertensive hyperlipidemia continue statin LENA Not currently on CPAP, outpt follow up Severe obesity with BMI >39 weight loss efforts advised DVT prophylaxis SCDs, early ambulation reason for continued hospitalization:placement Time Spent With Patient Time: Total time managing care of this patient today ____ minutes. Quality Stroke Does the patient have a stroke diagnosis?: No VTE Prior VTE?: No VTE Risk Level:: Medical - moderate - high VTE Device Contraindication: N/A - Device Ordered VTE Drug Contraindication: Treatment Not Indicated
--- NOTE | 2022-08-27 13:55 | MHC.CM.PN ---
CM MET WITH PT AND INFORMED HIM THERE WERE NO SNF BED OFFERS IN THIS AREA AND THE REFERRAL HAS BEEN EXPANDED 50+ MILES PT ASKS IF HE WILL STAY UNTIL A BED IS FOUND CM INFORMED HIM AT SOME POINT, AN ALTERNATE DC PLAN WILL NEED TO BE DEVELOPED OF NOTE: PT WAS IN HIS CHAIR WHEN APPROACHED AND PER NA, HAD WALKED TO THE BR AND CHAIR WITH A WALKER PT MAY NEED A WALKER RX AT DC
[2022-08-27 15:05] VITALS: BP 118/59; PULSE 59; RESP 16; TEMP 36.3; O2SAT 95
[2022-08-27 19:09] VITALS: BP 121/78; PULSE 63; RESP 16; TEMP 36; O2SAT 97
[2022-08-27] MEDS: Atorvastatin Calcium 80 MG TABLET PO (19:56)
[2022-08-27] MEDS: Sennosides/Docusate Sodium TABLET 2 TAB PO (19:56)
[2022-08-27] MEDS: TiZANidine HCL 4 MG TABLET PO (19:56)
[2022-08-28 02:39] VITALS: BP 108/70; PULSE 57; RESP 16; TEMP 36.3; O2SAT 96
[2022-08-28] MEDS: oxyCODONE HCl Immed Release 5 MG TABLET PO (05:59)
[2022-08-28] MEDS: Omeprazole 40 MG CAPSULE.DR PO (05:59)
[2022-08-28 07:17] VITALS: BP 126/86; PULSE 64; RESP 16; TEMP 36.1; O2SAT 98
[2022-08-28] MEDS: Metoprolol Succinate ER 50 MG TAB.ER.24H PO (07:52)
[2022-08-28] MEDS: Ibuprofen 400 MG TABLET PO ×2 (07:52→12:22)
[2022-08-28] MEDS: Valsartan 160 MG TABLET PO (07:52)
[2022-08-28] MEDS: hydroCHLOROthiazide 25 MG TABLET PO (07:52)
[2022-08-28] MEDS: Escitalopram Oxalate 5 MG TABLET PO (07:52)
[2022-08-28] MEDS: Acetaminophen 325 MG TABLET 975 MG PO ×2 (07:52→14:56)
[2022-08-28] MEDS: amLODIPine Besylate 5 MG TABLET PO (07:53)
[2022-08-28] MEDS: Lidocaine 4 % Patch ADH..PATCH 1 PATCH TRANSDERMA (07:53)
[2022-08-28] MEDS: 0.9 % Sodium Chloride Flush 3 ML SYRINGE IVFLUSH ×2 (07:54→14:56)
--- NOTE | 2022-08-28 08:33 | P.PNIM_ITS ---
Subjective Subjective Date of Service: 08/28/22 Interval History: improving Physical Exam Vital Signs: Vital Signs: Last Vital Signs Temp 96.9 F 08/28/22 07:17 Pulse 64 08/28/22 07:17 Resp 16 08/28/22 07:17 BP 126/86 08/28/22 07:17 Pulse Ox 98 08/28/22 07:17 O2 Del Method Room Air 08/28/22 07:17 BMI result Body Mass Index 38.9 General: AO X 3, no acute distress Resp: CTA bilateral, no accessory muscles used CVS: S1,S2,RRR GI: soft, non tender, non distended Neuro: motor grossly intact, alert Psych: appropriate affect, appropriate insight Objective Data Active Medications Acetaminophen (Acetaminophen 325 Mg Tablet) 975 mg PO TID [facility] Last Admin: 08/28/22 07:52 Dose: 975 mg Documented By: RENEA Amlodipine Besylate (Amlodipine Besylate 5 Mg Tablet) 5 mg PO DAILY [facility]; Protocol Last Admin: 08/28/22 07:53 Dose: 5 mg Documented By: RENEA Atorvastatin Calcium (Atorvastatin Calcium 80 Mg Tablet) 80 mg PO BEDTIME [facility] Last Admin: 08/27/22 19:56 Dose: 80 mg Documented By: PINO Escitalopram Oxalate (Escitalopram Oxalate 5 Mg Tablet) 5 mg PO DAILY [facility] Last Admin: 08/28/22 07:52 Dose: 5 mg Documented By: RENEA Hydrochlorothiazide (Hydrochlorothiazide 25 Mg Tablet) 25 mg PO DAILY [facility]; Protocol Last Admin: 08/28/22 07:52 Dose: 25 mg Documented By: RENEA Ibuprofen (Ibuprofen 400 Mg Tablet) 400 mg PO TIDWM [facility] Last Admin: 08/28/22 07:52 Dose: 400 mg Documented By: RENEA Lidocaine (Lidocaine 4 % Patch Adh..Patch) 1 patch TRANSDERMA DAILY [facility]; Protocol Last Admin: 08/28/22 07:53 Dose: 1 patch Documented By: RENEA Metoprolol Succinate (Metoprolol Succinate Er 50 Mg Tab.Er.24h) 50 mg PO DAILY [facility]; Protocol Last Admin: 08/28/22 07:52 Dose: 50 mg Documented By: RENEA Omeprazole (Omeprazole 40 Mg Capsule.Dr) 40 mg PO DAILY@0630 [facility] Last Admin: 08/28/22 05:59 Dose: 40 mg Documented By: PINO Ondansetron HCl (Ondansetron Hcl 4 Mg/2 Ml Vial) 4 mg IVPUSH Q8H PRN PRN Reason: Nausea and Vomiting Oxycodone HCl (Oxycodone Hcl Immed Release 5 Mg Tablet) 5 mg PO Q3H PRN PRN Reason: Pain, Moderate(Pain Scale 4-6) Pharmacy Consult (Consult Rx Perform Med Rec) 1 each MISCELLANE ONCE PRN PRN Reason: Consult order Senna/Docusate Sodium (Sennosides/Docusate Sodium Tablet) 2 tab PO BEDTIME [facility] Last Admin: 08/27/22 19:56 Dose: 2 tab Documented By: PINO Sodium Chloride (0.9 % Sodium Chloride Flush 3 Ml Syringe) 3 ml IVFLUSH QSHIFT [facility] Last Admin: 08/28/22 07:54 Dose: 3 ml Documented By: RENEA Tizanidine HCl (Tizanidine Hcl 4 Mg Tablet) 4 mg PO TID PRN PRN Reason: Muscle Spasm Last Admin: 08/27/22 19:56 Dose: 4 mg Documented By: PINO Valsartan (Valsartan 160 Mg Tablet) 160 mg PO DAILY [facility]; Protocol Last Admin: 08/28/22 07:52 Dose: 160 mg Documented By: RENEA Labs 08/24/22 16:55 08/24/22 16:55 Assessment and Plan (1) Intractable back pain: Status: Acute (2) Protrusion of lumbar intervertebral disc: Status: Acute Plan 46M with PMH htn, hld, LENA not on CPAP (has appt for CPAP upcoming next month) presented with intractable low back pain. acute intractable low back pain 2/2 Disc prolapse with parasthesia CT of the lumbar spine shows disc protrusions at the level of L3-L4 with pot ential mass effect upon the right L4 nerve root with vacuum disc phenomena among other findings oxycodone Motrin and Tylenol PO tizanidine p.r.n. PT recommending snf Discussed with Neurosurgery, if no improvement in 6 weeks will need to follow as outpatient recurrent falls likely secondary to osteoarthritis of the knees bilaterally outpatient follow-up with Orthopedics HTN controlled continue home antihypertensive hyperlipidemia continue statin LENA Not currently on CPAP, outpt follow up Severe obesity with BMI >39 weight loss efforts advised DVT prophylaxis lovenox reason for continued hospitalization:placement Time Spent With Patient Time: Total time managing care of this patient today ____ minutes. Quality Stroke Does the patient have a stroke diagnosis?: No VTE Prior VTE?: No VTE Risk Level:: Medical - moderate - high VTE Device Contraindication: N/A - Device Ordered VTE Drug Contraindication: Treatment Not Indicated
[2022-08-28] MEDS: Enoxaparin Sodium 40 MG/0.4 ML SYRINGE SUBCUT (09:14)
[2022-08-28 11:14] VITALS: BP 126/86; PULSE 64; O2SAT 98
--- NOTE | 2022-08-28 13:34 | MHC.CM.PN ---
Addendum entered by Luz Pozo 08/28/22 14:12: TRANSPORT ARRANGED WITH [facility] FOR 1600 HOURS Addendum entered by Luz Pozo 08/28/22 14:01: PT PROVIDED WITH A WALKER THO OBTAINED A PT1 AUTH NUMBER FOR TRANSPORT ([id number]) AWAITING [facility] RESPONSE TO ENSURE THEY CAN TRANSPORT TODAY Original Note: THO MET WITH PT TO DISCUSS DC PLANNING PT IS AWARE HE HAS BEEN CLEARED TO DC HOME WITH PT AND A WALKER RX PT REPORTS HE DOES NOT HAVE TRANSPORT HOME NOR DOES HE HAVE A WAY TO GET TO THE MEDICAL SUPPLY STORE FOR A WALKER. THO SPOKE TO A NURSING CORRECTIONAL CLASSIFICATION COUNSELOR AND A WALKER WILL BE PROVIDED MD WILL PRINT RX CHAIR VAN TRANSPORT WILL BE ARRANGED
--- NOTE | 2022-08-28 15:34 | P.F2F_ITS ---
Service Date Service Date: 08/28/22 Encounter Date of encounter: 08/28/22 Reasons for Services Signs and symptoms assessed: back pain Reason for physical therapy: home safety and mobility and therapeutic exercises Homebound: Leaving the home is medically contraindicated at this time without the asist of a device and/or another person due th the listed conditions above and below. Reason homebound: other (back pain) Certification: Based on the above findings, I certify that this patient is confined to the home and needs intermittent correction care, physical therapy and/or speech therapy, or continues to need occupational therapy. The patient is under my care, and I have initiated the establishment of the plan of care. The patient will be followed by a physician who will periodically review the plan of care. Time Spent With Patient Time: Total time managing care of this patient today ____ minutes.
== END 2022-08-28 17:11 | disposition home or self-care (01) ==
LOC: HO.ED 16:46 → HO.EDOVER 23:52 → HO.S3 08-25 00:52
PROVIDERS: Nurse Practitioner Family; Admitting Provider Physician Assistant; Emergency Provider Emergency Medicine; PCP Internal Medicine; Visit Provider Internal Medicine
DX: M54.50 Low back pain, unspecified (principal); M51.26 Other intervertebral disc displacement, lumbar region; I10 Essential (primary) hypertension; E78.5 Hyperlipidemia, unspecified; R29.6 Repeated falls; E66.9 Obesity, unspecified; Z68.39 Body mass index [BMI] 39.0-39.9, adult; Z79.02 Long term (current) use of antithrombotics/antiplatelets; Z79.899 Other long term (current) drug therapy
CPT/HCPCS: 36415; 72131; 80048; 85025; 96372; 96374; 96375; 96376; 97116; 97162; 97530; 99221; 99285; J1100; J1650; J1885; J2270

== ENCOUNTER 2022-09-04 08:41 | Outpatient (REF) | payer MEDICAID, SELFPAY ==
--- NOTE | ~2022-09-04 | MR_ITS ---
EXAMINATION: MR SHOULDER WITHOUT CONTRAST, RIGHT CLINICAL INFORMATION: Right shoulder pain. COMPARISON: Radiographs 04/20/2022. TECHNIQUE: MRI of the shoulder without contrast was performed on a high-field scanner. FINDINGS: ROTATOR CUFF: Subscapularis tendinosis with minimal undersurface partial tearing. Mild infraspinatus tendinosis. No muscle atrophy or fatty infiltration. BICEPS: Complete or near-complete tear of the biceps tendon which is thickened with retracted fibers within the bicipital groove. CORACOACROMIAL ARCH: The undersurface of the acromion is flat with no subacromial spur. Moderate hypertrophic acromioclavicular osteoarthritis. LABRUM/CAPSULE: Focal high-grade tearing of the superior labrum and undersurface tearing of the inferior and anterior labrum. GLENOHUMERAL JOINT/MARROW: Near full-thickness cartilage loss throughout the humeral head with large marginal osteophytes. Full-thickness cartilage loss with surface flattening/remodeling of the posterior glenoid. Moderate joint effusion with diffuse synovitis/debris. MR/MR shoulder RT wo con IMPRESSION: 1. Subscapularis tendinosis with minimal undersurface partial tearing. 2. Mild infraspinatus tendinosis. 3. Complete or near-complete tear of the biceps tendon with retraction. 4. Moderate-severe glenohumeral osteoarthritis. Moderate hypertrophic acromioclavicular osteoarthritis.
== END 2022-09-04 08:42 | disposition home or self-care (01) ==
LOC: HO.MRI 08:41
PROVIDERS: PCP Internal Medicine; Visit Provider Physician Assistant
DX: S46.211A Strain of muscle, fascia and tendon of other parts of biceps, right arm, initial encounter (principal)
CPT/HCPCS: 73221

== ENCOUNTER → 2022-09-11 10:23 | Outpatient (REF) | payer MEDICAID, SELFPAY ==
--- NOTE | 2022-09-11 10:29 | CA_ITS ---
Acquisition Time: 2022-09-11 10:39:37 Total Exercise Time: 00:08:30 Test Indications: Dyspnea Medications: AMLODIPINE ESCITALOPRAM METOPROLOL ROSUVASTATIN SERTRALINE TELMISARTAN/HCTZ Protocol: SANTI Max HR: 193 BPM 111% of Pred: 173 BPM Max BP: 168/082 mmHG Max Work Load: 10.1 METS Exercise stress test with exercise 8 min 20 sec of Santi protocol, achieving 93% MPHR, with fatigue, mild sob and 8/10 chest tightness, with isolated PACs and PVCs, with normotensive response to exercise, without EKG changes meeting criteria for ischemia. In recovery his chest tightness improved and was present more with deep inspiration. Echo images obtained by tech at rest and immediately post peak exercise, Deifinity contrast used. Test reviewed with Dr Steen Referred By: Kris Steen Overread By: AIDA GLORIA
== END ==
LOC: HO.CARD 10:23
PROVIDERS: PCP Internal Medicine; Visit Provider Internal Medicine
DX: R07.2 Precordial pain (principal); R06.02 Shortness of breath
CPT/HCPCS: 93350; Q9957

== ENCOUNTER 2022-09-25 07:03 | Outpatient (REF) | payer MEDICAID, SELFPAY | END 2022-09-25 07:04 | disposition home or self-care (01) | LOC: HO.LAB 07:03 | PROVIDERS: PCP Internal Medicine; Visit Provider Internal Medicine | DX: A04.8 Other specified bacterial intestinal infections (principal); D69.6 Thrombocytopenia, unspecified; E78.00 Pure hypercholesterolemia, unspecified; F32.9 Major depressive disorder, single episode, unspecified; I10 Essential (primary) hypertension | CPT/HCPCS: 36415; 80053; 85025; 87338 ==

== ENCOUNTER 2022-09-30 12:01 | Outpatient (AMB) | payer MEDICAID, SELFPAY ==
--- NOTE | 2022-09-30 12:05 | A.OFFVIS_ITS ---
Intake Intake Visit Reasons: Postop-R CTR & R RF/IF Trig Rel. 07/30/22 AR Intake Note: Arias is a 46 year old male who presents today for a post op appointment for his right CTR and R RF/IF Trig Rel. 07/30/22 AR. States he cont's to attend O.T with improvement. He is now able to make a fist. Allergies lisinopril Allergy (Intermediate, Verified 09/30/22 12:14) Cough penicillin V Allergy (Unknown, Verified 09/30/22 12:14) Unknown HPI Postop-R CTR & R RF/IF Trig Rel. 07/30/22 AR HPI Details Arias is a 46 year old right hand dominant man who presents S/P right carpal tunnel, index finger, and ring finger trigger release, DOS: 07/30/22. He says he is doing well, he feels his sensation is improved.? He continues to work with OT hand therapy and is able to make a fist He continues to have right radial wrist pain, and minimal relief from his right De Quervain's injection on 07/07/22 [facility] Medical History High cholesterol HTN (hypertension) ELNA (obstructive sleep apnea) Trigger finger Surgical History H/O inguinal hernia repair S/P eye surgery Family History Mother No problems noted. Father No problems noted. 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 Neuro: Median, Ulnar, Radial nerves motor and sensory intact and sensation is normal to the tips of all digits Vascular: Cap refill brisk ROM: He can make a fist and extend all his digits No locking and catching Positive Johnny test on the right Most Tender over the 1st dorsal compartment Psych Appearance: grossly normal Affect: normal affect Attitude: cooperative Assessment & Plan Assessment & Plan (1) Carpal tunnel syndrome of right wrist: Code(s): G56.01 - Carpal tunnel syndrome, right upper limb (2) Carpal tunnel syndrome of left wrist: Code(s): G56.02 - Carpal tunnel syndrome, left upper limb (3) Trigger finger, right index finger: Code(s): M65.321 - Trigger finger, right index finger (4) Trigger ring finger of right hand: Code(s): M65.341 - Trigger finger, right ring finger (5) De Quervain's tenosynovitis, right: Code(s): M65.4 - Radial styloid tenosynovitis [de Quervain] Plan Assessment & Plan: 1. Right De Quervain's tenosynovitis, S/P injection Date of injection: 07/07/22, with minimal relief Positive Johnny test today I educated him about this condition I discussed treatment options The patient would like to proceed with surgery The risks and benefits of operative treatment were discussed with the patient and the patient wishes to proceed with surgery. These risks include, but are not limited to risk of damage to blood vessels, nerves, tendons, infection, recurrence, incomplete relief of preoperative symptoms, persistent pain, possible need for further surgery and the risks associated with regional blocks and anesthesia. The plan is to take the patient to the operating room sometime in the next few weeks for the following procedures: 1. Right 1st dorsal compartment release, under local All of the preoperative paperwork including the consent was filled out today. All the patient's questions were answered. The patient understands that they will be contacted by our appointment coordinator soon to schedule this procedure He denies Diabetes, blood thinners, asthma, heart, lung, kidney issues 2. Right Carpal tunnel syndrome, S/P release Now with normal sensation 3. Right index trigger finger, S/P release 4. Right ring trigger finger, S/P release DOS: 07/30/22 With good resolution of his symptoms 5. Left carpal tunnel syndrome, mild-moderate Symptoms intermittent, but daily, worse at night We can discuss his left carpal tunnel at a later date. Scribed for Margarita Hummel MD by Pal Thompson, medical billing representative, on 09/30/22 at 12:30 PM, EST. Coding Level of Care Code Est Pt Level 4 (79916) Diagnoses Carpal tunnel syndrome of right wrist G56.01 Carpal tunnel syndrome of left wrist G56.02 Trigger finger, right index finger M65.321 Trigger ring finger of right hand M65.341 De Quervain's tenosynovitis, right M65.4
== END 2022-09-30 12:34 | disposition home or self-care (01) ==
PROVIDERS: PCP Internal Medicine; Visit Provider Orthopaedic Surgery
DX: G56.03 Carpal tunnel syndrome, bilateral upper limbs (principal); M65.321 Trigger finger, right index finger; M65.341 Trigger finger, right ring finger; M65.4 Radial styloid tenosynovitis [de Quervain]
CPT/HCPCS: 99024; 99214

== ENCOUNTER → 2022-09-30 12:01 | Outpatient (BNVA) | payer MEDICAID, SELFPAY | PROVIDERS: PCP Internal Medicine; Visit Provider Orthopaedic Surgery | DX: Z47.89 Encounter for other orthopedic aftercare (principal); G56.02 Carpal tunnel syndrome, left upper limb; Z87.39 Personal history of other diseases of the musculoskeletal system and connective tissue; Z86.69 Personal history of other diseases of the nervous system and sense organs | CPT/HCPCS: 99212 ==

== ENCOUNTER 2022-10-06 09:00 | Outpatient (RCR) | payer MEDICAID, SELFPAY ==
--- NOTE | 2022-09-09 14:22 | MHC.OT.EP ---
[address] [phone] Occupational Therapy Plan of Care Patient Name: Arias Valente Date of Evaluation: 09/09/22 Diagnosis: Right carpal tunnel release Right index and ring trigger finger release Pain Location: Pain right hand: 3/10 Best: 2/10 Worst: 8/10 Pain Score: 3 Pain Scale Used: Numeric (0 - 10) Aggravating Factors: Forceful grasp, tight fist, thumb opposition Alleviating Factors: Medication, elevation Assessment: Pt is a 46 y/o male referred to OT s/p right CTR, index and ring trigger finger releases on 07/30/[address] Hummel. Pt reports increased pain and edema at night, as well as difficulty making a tight fist. ROM is mostly limited in ring finger. He has significant edema at base of index finger; pt. reports the pain and redness is improving. He was put on a course of antibiotics for 10 days preventively. His triggering in both digits have stopped since the surgery. He is also experiencing right DeQuervains tendonitis pain, which he is following up with soon by Dr. Hummel. He received a cortisone injection in June which he reports has worn off. A 75% limitation is reported per the Quick DASH assessment. Pt. would benefit from skilled OT to address noted barriers and assist in return to PLOF. Frequency and Duration: The patient will be seen 2x/wk for 4 weeks Short Term Goals: Decrease right hand pain to <2/10 IND with use of thermal modalities for pain mgt Pt will make full composite fist without pain Demo IND with HEP and scar massage Fpc Goals: Pain free with BADL's/IADL's IND with progression of HEP Improve right gross grasp by 20# Quick DASH <30% Treatment Plan: Therapeutic Exercise Therapeutic Activity Home Exercise Program Patient Education Edema Control Ultrasound Paraffin Fluidotherapy MHP Soft Tissue Mobilization Kinesiotaping Electronically Signed By: Annel Martinez MS OTR/L Please Sign and return to therapist. Thank you once again for your referral.
--- NOTE | 2022-09-29 10:09 | MHC.OT.OP ---
[address] [phone] F: [phone] Occupational Therapy Progress Note Patient Name: Arias Valente Diagnosis: Right carpal tunnel release Right index and ring trigger finger release Date of Surgery: 07/30/22 Date of Evaluation: 09/09/22 Treatments to Date: 5 Subjective: It swells up a lot at night. Pain Score: 3 Pain Location: Right hand base of IF and RF Objective Measures: Intact to light touch and localization B UE's Pt reports occasional 'electrical shocks' following the line of the right ring finger Right wrist AROM: 45/45 Gross grasp R: 20# (from 15#) L: 55 Status: Progressing Assessment: Pt. reports pain is slightly improved during the day although he is still experiencing 'pins and needles' and edema at night time. Wrist ROM and gross grasp strength is improving. He is now able to make a full composite fist without pain. Gross grasp 15# on the right compared to 55# on the left. Lateral pinch strength improved to 8# (from 5#). Arias has been compliant with night time splint wear (fabricated for DeQuervains pain) as well as demonstrating good compliance with all exercises. He seems most limited by right radial wrist pain, although he is hoping to avoid further surgery. He is open to receiving an injection. Pt. is progressing with CTR and trigger finger release rehab, would benefit from continued OT for pain mgt related to DeQuervains pain. Short Term Goals: Decrease right hand pain to <2/10 - GOAL MET IND with use of thermal modalities for pain mgt - GOAL MET Pt will make full composite fist without pain - GOAL MET Demo IND with HEP and scar massage - GOAL MET Longterm Goals: Pain free with BADL's/IADL's IND with progression of HEP Improve right gross grasp by 20# Quick DASH <30% Frequency and Duration: Recommending 2x/wk for 3 weeks Treatment Plan: Therapeutic Exercise Therapeutic Activity Home Exercise Program Splinting Patient Education Ultrasound Fluidotherapy Joint Mobilization Soft Tissue Mobilization Electronically Signed By: Annel Martinez, MS OTR/L Reviewed/agree with student documentation: Therapist:
== END 2022-10-06 13:06 | disposition home or self-care (01) ==
LOC: HO.OT 09:00
PROVIDERS: PCP Internal Medicine; Visit Provider Physician Assistant
DX: M65.341 Trigger finger, right ring finger (principal); M65.321 Trigger finger, right index finger; G56.01 Carpal tunnel syndrome, right upper limb
CPT/HCPCS: 29130; 97035; 97110; 97140; 97165; 97760

== ENCOUNTER 2022-10-15 13:33 | Outpatient (REF) | payer MEDICAID, SELFPAY ==
[2022-10-15 18:08] LABS: Basophils Percent Auto 0.3 % (0-2); Eosinophils Absolute Auto 0.1 X10*3/uL (0.0-0.4); Eosinophils Percent Auto 2.1 % (0-4); Hematocrit 47.5 % (42.0-52.0); Hemoglobin 15.7 g/dl (14.0-18.0); Imm Gran Abs Auto 0.02 X10*3/uL (0.00-0.03); Imm Gran Pct Auto 0.3 % (0.0-0.4); Lymphocytes Absolute Auto 0.9 X10*3/uL (1.2-4.9); Lymphocytes Percent Auto 15.7 % (20-40); MANUAL DIFF FLAG NO; Mean Corpuscular HGB Conc 33.1 g/dl (31.0-36.0); Mean Corpuscular Hemoglobin 27.8 pg (27.0-33.0); Mean Corpuscular Volume 84.1 fL (80.0-98.0); Mean Platelet Volume 12.4 fL (9.4-12.4); Monocytes Absolute Auto 0.4 X10*3/uL (0.1-1.2); Monocytes Percent Auto 6.9 % (2-11); Neutrophils Absolute Auto 4.3 x10*3/uL (2.0-8.3); Neutrophils Percent Auto 74.7 % (45-73); Platelet Count 170 X10*3/uL (160-400); Red Blood Count 5.65 X10*6/uL (4.60-5.80); Red Cell Distribution Width 13.8 % (11.0-16.0); White Blood Count 5.8 X10*3/uL (4.8-10.8)
[2022-10-15 18:12] LABS: Prothrombin Time 11.6 SEC (11.1-13.3)
[2022-10-15 21:11] LABS: Anion Gap 22 (12-20); Blood Urea Nitrogen 20 mg/dL (9-16); Calcium 10.1 mg/dL (8.4-10.2); Carbon Dioxide 24 mmol/L (22-29); Chloride 101 mmol/L (96-108); Estimated Glomerular Filt Rate > 60; Glucose Random 79 mg/dL (60-115); Potassium 4.8 mmol/L (3.3-5.1); Sodium 142 mmol/L (135-145)
== END 2022-10-15 13:34 | disposition home or self-care (01) ==
LOC: HO.LAB 13:33
PROVIDERS: PCP Internal Medicine; Visit Provider Nurse Practitioner Family
DX: Z01.810 Encounter for preprocedural cardiovascular examination (principal); I20.8 Other forms of angina pectoris; R06.02 Shortness of breath; I10 Essential (primary) hypertension; E78.00 Pure hypercholesterolemia, unspecified; G47.33 Obstructive sleep apnea (adult) (pediatric)
CPT/HCPCS: 36415; 80048; 85025; 85610; 99214

== ENCOUNTER 2022-10-15 13:33 | Outpatient (AMB) | payer MEDICAID, SELFPAY ==
[2022-10-15 14:13] VITALS: BP 140/70; PULSE 64; BMI 39.2
--- NOTE | 2022-10-15 14:13 | MHC.OFFVIS ---
Intake Vital Signs 10/15/22 14:13 Height 5 ft 8 in Weight 257 lb 15.053 oz BMI 39.2 BP 140/70 H Blood Pressure Location Lt brachial Position Sitting Pulse 64 Pulse Source Pulse Oximeter Intake Visit Reasons: f/u after echo/stress Intake Note: f/u after echo/stress Dry Wall Sprayer Required: Yes Dry Wall Sprayer Name: jordy [id number] lindemia Allergies lisinopril Allergy (Intermediate, Verified 10/15/22 14:18) Cough aspirin Allergy (Mild, Verified 10/15/22 15:05) Swelling penicillin V Allergy (Unknown, Verified 10/15/22 14:18) Unknown Medication List - Last Reconciled 10/15/22 by Nila Meeks, NORAH-Nannette amlodipine 5 mg PO DAILY escitalopram oxalate 5 mg PO DAILY metoprolol succinate ER 50 mg PO DAILY omeprazole 20 mg PO BID rosuvastatin 40 mg PO BEDTIME sennosides-docusate sodium 8.6-50 mg (Senexon-S) 2 tabs PO BEDTIME telmisartan-hydrochlorothiazid 80-25 mg 1 tab DAILY tizanidine 4 mg PO TID PRN walker As directed HPI f/u after echo/stress HPI Details Arias is a 46-year-old male with past medical history of hypertension, hyperlipidemia, obstructive sleep apnea, currently not being treated who recently reported chest pressure with activity. He did undergo a echocardiogram and stress echocardiogram and now presents for follow-up. Today he reports that he continues to have chest pressure with activity. He says this has occurred for about the last year but now it is more frequent and occurring easy year. He describes a pressure in his mid chest that occurs with walking and relieved with rest. It now occurs daily and happened when he walked from the car and into this office. At present he has no chest discomfort. He has not been woken from sleep with discomfort. He denies having this symptom at rest. He has some shortness of breath with activity but admits to being mostly sedentary. He did have a recent flare up of back discomfort which he is recovering from. No presyncope, syncope, falls. No PND, orthopnea or edema. He is not able to take it aspirin as he tells me he gets swelling around his eyes. He is taking all other meds as directed. No contrast dye allergy reported. Certified supervisor counseling and guidance used [facility] Medical History (Updated 10/15/22 @ 17:04 by Nila Meeks NP-C) High cholesterol HTN (hypertension) LENA (obstructive sleep apnea) Trigger finger Surgical History H/O inguinal hernia repair S/P eye surgery Family History Mother No problems noted. Father No problems noted. 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 Review of Systems Const All systems reviewed & are unremarkable except as noted in HPI and below ENT Reports dizziness Card Reports chest pain, Denies chest pain at rest, Reports chest pain with activity, Denies rapid heart rate, Denies pedal edema, Denies edema, Denies leg edema, Denies lightheadedness, Denies palpitations, Denies dyspnea, Reports dyspnea on exertion and Denies orthopnea Resp Denies cough, Denies dyspnea and Reports dyspnea on exertion GI Denies hematochezia and Denies change in stool character Musc Denies abnormal gait, Reports limited range of motion, Reports muscle cramps, Denies muscle weakness, Denies numbness, Denies radiating pain into limb, Denies stiffness and Denies tingling Neuro Denies abnormal gait, Reports dizziness, Denies numbness and Denies tingling Endo Denies palpitations Physical Exam Vital Signs: Last Vital Signs Pulse 64 10/15/22 14:13 BP 140/70 H 10/15/22 14:13 BMI result Body Mass Index 39.2 Const General: cooperative, healthy appearing, comfortable and no acute distress Orientation/consciousness: patient oriented x3 Neck Neck: Yes normal visual inspection Resp Effort & Inspection: normal respiratory effort Auscultation: clear to auscultation bilaterally, no rales, no rhonchi and no wheezes Cardio Jugular venous distension: no JVD Rate: regular rate Rhythm: regular rhythm Heart sounds: S1 normal heart sound present, S2 normal heart sound present, no gallops, no murmurs and no rubs Neuro General: patient oriented x3 Extrem General: Yes normal to inspection and No no pedal edema Psych Appearance: grossly normal Mental Status: mental status grossly normal Speech and movement: Normal speech and movement present Assessment & Plan Assessment & Plan (1) Exertional angina: Code(s): I20.8 - Other forms of angina pectoris Plan: Typical sounding stable exertional angina. Patient reports symptoms over the last year, now increasing in frequency and severity. EKG done last visit showing normal sinus rhythm with no acute ST or T-wave abnormalities, rate 78. Echocardiogram done 08/13/2022 showing EF 62%, no evidence of regional wall motion abnormality, no valve abnormalities. Stress echocardiogram done on 09/11/2022 showed exercise 8 minutes 20 seconds with development of 8/10 chest tightness, no EKG changes of ischemia, symptom resolved with rest, no echo evidence of ischemia however report does state study quality less than optimal. At this time he continues to have symptoms, now occurring daily. Need to definitively rule out obstructive coronary artery disease. Patient will need a left heart catheterization with PCI if indicated. Spent time reviewing this procedure and risks with patient and he states understanding. No contrast dye allergy. Labs from 09/25/2022 shows creatinine 0.83. Will obtain preprocedure labs today. Will request that his procedure be done in the near future due to concern for exertional angina. He is currently on 2 antianginal agents including metoprolol XL and amlodipine. He is also on high-dose rosuvastatin. He is not on aspirin due to allergy. Cardiology follow-up 2 weeks post cath. Emergency care if needed for symptoms. (2) Shortness of breath: Code(s): R06.02 - Shortness of breath (3) HTN (hypertension): Code(s): I10 - Essential (primary) hypertension Plan: Adequately controlled present. Continue amlodipine and metoprolol. (4) High cholesterol: Code(s): E78.00 - Pure hypercholesterolemia, unspecified Plan: [place] LDL goal less than 100. If found to have CAD then goal will be less than 70. At present continue rosuvastatin 40 mg daily (5) LENA (obstructive sleep apnea): Code(s): G47.33 - Obstructive sleep apnea (adult) (pediatric) Plan: He tells me he has not been wearing CPAP mask but is undergoing the steps needed to have a new mask ordered (6) Preop cardiovascular exam: Code(s): Z01.810 - Encounter for preprocedural cardiovascular examination Plan: Patient tells me he is having carpal tunnel surgery in the next few weeks. With his report of chest discomfort that is concerning for exertional angina he is at high risk to undergo surgical procedures at this time. Recommend procedure be postponed until cardiac catheterization completed and heart condition is known. Orders: Orders Basic Metabolic Panel Today I20.8 - Other forms of angina pectoris Prothrombin Time INR Today I20.8 - Other forms of angina pectoris Complete Blood Count Auto Diff Today I20.8 - Other forms of angina pectoris Cardiac Cath LT w PCI 1 Week I20.8 - Other forms of angina pectoris Coding Level of Care Code Est Pt Level 4 (11033) Diagnoses Exertional angina I20.8 Shortness of breath R06.02 HTN (hypertension) I10 High cholesterol E78.00 LENA (obstructive sleep apnea) G47.33 Preop cardiovascular exam Z01.810 Time Spent (min) 30 Comment Chart review, documentation, interview, assessment
== END 2022-10-15 15:09 | disposition home or self-care (01) ==
PROVIDERS: Visit Provider Nurse Practitioner Family
DX: I20.8 Other forms of angina pectoris (principal); R06.02 Shortness of breath; I10 Essential (primary) hypertension; E78.00 Pure hypercholesterolemia, unspecified; G47.33 Obstructive sleep apnea (adult) (pediatric); Z01.810 Encounter for preprocedural cardiovascular examination
CPT/HCPCS: 99214

== ENCOUNTER 2022-10-21 13:07 | Day surgery (SDC) | payer MEDICAID, SELFPAY ==
[2022-10-21 14:02] VITALS: BMI 39.5
--- NOTE | 2022-10-21 14:17 | P.CONAN_ITS ---
HPI - Anesthesia Eval Consult details Narrative: rt si joint fusion PMFSH Active Problems Active Problems: All Active Problems (Updated 10/15/22 @ 17:04 by Nila Meeks, BOILING OFF WINDER-C) Preop cardiovascular exam (Acute) High cholesterol (Acute) Exertional angina (Acute) Bilateral knee pain (Acute) Protrusion of lumbar intervertebral disc (Acute) Intractable back pain (Acute) Osteoarthritis of knees, bilateral (Acute) LENA (obstructive sleep apnea) (Acute) HTN (hypertension) (Acute) Shortness of breath (Acute) De Quervain's tenosynovitis, right (Acute) Trigger ring finger of right hand (Acute) Trigger finger, right index finger (Acute) Carpal tunnel syndrome of left wrist (Acute) Carpal tunnel syndrome of right wrist (Acute) Cervical strain (Acute) Strain of right biceps tendon (Acute) Trigger finger of both hands (Acute) Primary osteoarthritis of knees, bilateral (Acute) Polyarthralgia (Acute) IRIS positive (Acute) Past Medical History Medical History (Updated 10/15/22 @ 17:04 by Nila Meeks, BOILING OFF WINDER-C) High cholesterol HTN (hypertension) LENA (obstructive sleep apnea) Trigger finger Family History Family History Mother No problems noted. Father No problems noted. 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 Meds Allergies Allergy/AdvReac Type Severity Reaction Status Date / Time lisinopril Allergy Intermediate Cough Verified 10/15/22 14:18 aspirin Allergy Mild Swelling Verified 10/15/22 15:05 penicillin V Allergy Unknown Unknown Verified 10/15/22 14:18 Home Medications Medication Instructions Recorded Confirmed Last Taken Type escitalopram oxalate 5 mg tablet 5 mg PO DAILY 07/24/22 10/15/22 08/24/22 History metoprolol succinate 50 mg 50 mg PO DAILY 07/24/22 10/15/22 08/24/22 History tablet,extended release 24 hr rosuvastatin 40 mg tablet 40 mg PO BEDTIME 07/27/22 10/15/22 08/23/22 History telmisartan 80 1 tab DAILY 07/27/22 10/15/22 08/24/22 History mg-hydrochlorothiazide 25 mg tablet amlodipine 5 mg tablet 5 mg PO DAILY 08/24/22 10/15/22 08/24/22 History sennosides 8.6 mg-docusate sodium 2 tab PO BEDTIME 08/24/22 10/15/22 08/23/22 History 50 mg tablet (Senexon-S) omeprazole 20 mg capsule,delayed 20 mg PO BID 10/15/22 10/15/22 Unknown History release Exam Exam Date and Time: October 21, 2022 1417 Height,Weight and Vital Signs: Height 5 ft 8 in Weight 117.934 kg Airway Mallampati Class: II TM Dist: >3cm Neck ROM: Full Loose/Missing/Broken Teeth: Yes (lt uppu) Heart: er and lower molar rr Lungs: cta Assessment and Plan Assessment Anesthesia Assessment: Anesthesia Plan Discussed, Smoking Cess. Discussed and Chart Reviewed Final Anesthetic Review Family History of Problems with Anesthesia: No History of Problems with Anesthesia: No NPO: Yes ASA Class: III Final Preanesthetic Review: No Changes in Pt Med Stat, Meds/Allgs Chart Reviewed, Consent Obtained/Reviewed and Anes Risks/Benef Reviewed Patient Risk: Intermediate Procedure Risk: Intermediate Anesthetic Plan Anesthetic Plan: GA Disposition: Standard PACU
[2022-10-21 14:25] VITALS: BP 138/88; PULSE 69; RESP 18; TEMP 37.2; O2SAT 95
--- NOTE | 2022-10-21 18:05 | MHC.SHP ---
Pre-Procedural Eval Section A Date of Service: 10/21/22 The patient is an INPATIENT: No Changes since office visit: Yes Patient answered all questions The History & Physical has been completed within 30 days and I have reviewed it.: No Section B Chief Complaint: Pain in left knee Relevant Family History (Specify if Yes): Yes Relevant Social History: Other (specify) Present Medications: None Medical History: No relevant PMH History of Previous Operations: No relevant previous surgery Allergies: Allergies Allergy/AdvReac Type Severity Reaction Status Date / Time lisinopril Allergy Intermediate Cough Verified 10/15/22 14:18 aspirin Allergy Mild Swelling Verified 10/15/22 15:05 penicillin V Allergy Unknown Unknown Verified 10/15/22 14:18 Review of Systems Sugical H&P ROS: Negative: Constitution, Cardiovascular and Respiratory Exam Surgical H&P Exam: Normal: HEENT, Normal: Heart and Normal: Lungs Plan Diagnosis/Plan: Unchanged I have reviewed the history and physical and performed a pertinent physical examination on my patient. No changes have occurred unless specified. Proceed with left knee temporary saphenous nerve stimulator placement. Time Spent With Patient Time: Total time managing care of this patient today ____ minutes.
--- NOTE | 2022-10-21 19:12 | PM.OP ---
Brief Operative Note Date of Service: 10/21/22 Pre-op diagnosis: Left knee pain Post-op diagnosis: same Procedure: Temporary left infrapatellar saphenous nerve stimulator placement Implants: [employer] temporary PNS system Surgeon: Jonathan Shi MD Anesthesia: local Was an Supervisor Brake Repair used for this Procedure?: No Estimated blood loss (mL): 5 Pathology: none sent Condition: stable Disposition: same day
--- NOTE | 2022-10-21 19:13 | P.OP_ITS ---
Operative Note Operative Note Date of Service: 10/21/22 Narrative: Peripheral Nerve Stimulation Temporary Lead Placement, Ultrasound-Guided, Infrapatellar Saphenous Nerve, Left ? After the risks, benefits and alternatives were discussed with the patient and informed consent was obtained, patient was placed in the supine position and padded to foster comfort. A motor vehicle parts interpreter was present for the entire encounter. Appropriate skin and bony landmarks were identified, and pertinent vascular structures were located. The skin overlying the needle entry site was prepped and draped in sterile fashion. Ultrasound was used to identify the femoral artery, the femoral vein and the saphenous nerve. After identifying and marking the intended target along the course of the Saphenous nerve, the skin around the planned entry point and the subcutaneous tissues were injected with local anesthetic. An introducer needle and stimulating probe were assembled, inserted and advanced along the intended course of the saphenous; nerve, taking care to maintain the proper depth of insertion as the introducer was advanced under ultrasound guidance. The introducer needle was delivered to a location in proximity to the nerve taking care not to puncture the femoral artery or the vein. On paresthesia testing, various locations around the nerve were tested for appropriate coverage in the lower extremity but optimal coverage was difficult to obtain. Various locations in the adductor canal reduced significant painful motor activation so the needle required several repositionings. When appropriate paresthesia stimulation was obtained, the introducer probe was removed. At this point, bleeding was noted through the introducer channel indicating possible vascular puncture. On ultrasound imaging, there was no evidence of intravascular placement of the needle tip. Regardless, given the bleeding from the introducer channel, the introducer channel was removed and a steady pressure was held on site until hemostasis was obtained. At this point, decision was made to attempt needle placement at the infrapatellar saphenous nerve instead. Ultrasound was used to isolate the infrapatellar neurovascular bundle and needle was advanced initially in the out of plane approach in the long axis and then landed close to the infrapatellar medial tibial edge in the short axis using an in plane approach. Multiple stimulation parameters were used to deliver stimulation to the infrapatellar saphenous nerve in concert with stimulating at multiple positions around the nerve. Nerve target acquisition was confirmed noting generation of sensory and mild motor effects (paresthesia, muscle tension, etc) in the medial knee. Various electrical parameter combinations were tested, and the lead location was adjusted (physically relocated under ultrasound guidance) until the patient indicated medial knee paresthesia and tension. At this point, I offered the patient the option to either abort the procedure with removal of the stimulator and re-attempt a proximal femoral target in the future, or continue with the current trial at the infrapatellar saphenous location and reassess in 2 weeks whether to continue with the temporary stimulation or remove the stimulator at that point. The patient chose the second option. The stimulating probe was removed from the introducer and a percutaneous lead was guided through the needle and delivered to a location in similar proximity to the nerve. Final location was verified with electrical stimulation and documented. The introducer needle was removed, and the exposed end of the percutaneous lead was attached to an external stimulator unit. Various electrical parameter combinations were again tested until the patient indicated paresthesia and muscle tension overlapping the distribution of the patient?s typical region of pain. After confirming that lead impedance was in the normal range, the external unit was detached, the needle was removed, and the lead was anchored at the skin. The lead was threaded into the connector block and electrical continuity and desired patient response was confirmed. The connector block was attached to the external stimulator unit. The site was covered with a sterile occlusive dressing. The patient was then brought to the PACU and monitored for stability and comfort.
[2022-10-21 19:17] VITALS: BP 125/77; PULSE 61; RESP 16; TEMP 37.1; O2SAT 97
== END 2022-10-21 19:32 | disposition home or self-care (01) ==
PROVIDERS: PCP Internal Medicine; Visit Provider Internal Medicine
PROC: (CPT 64555; principal; 2022-10-21 15:30)
DX: M25.562 Pain in left knee (principal); M17.12 Unilateral primary osteoarthritis, left knee; I10 Essential (primary) hypertension; E78.00 Pure hypercholesterolemia, unspecified; G47.33 Obstructive sleep apnea (adult) (pediatric); Z79.899 Other long term (current) drug therapy; Z88.0 Allergy status to penicillin; Z88.8 Allergy status to other drugs, medicaments and biological substances
CPT/HCPCS: 64555; C1778; J0171

== ENCOUNTER → 2022-10-21 13:07 | Outpatient (BNV) | payer MEDICAID, SELFPAY | PROVIDERS: PCP Internal Medicine; Visit Provider Internal Medicine | DX: M25.562 Pain in left knee (principal) | CPT/HCPCS: 64555 ==

== ENCOUNTER 2022-10-26 08:02 | Outpatient (AMB) | payer MEDICAID, SELFPAY ==
--- NOTE | 2022-10-26 08:05 | MHC.OFFVIS ---
Intake Vital Signs 10/26/22 08:06 Height 5 ft 8 in Weight 258 lb BMI 39.2 BP 124/75 Blood Pressure Location Lt brachial Position Sitting Respiration 14 Pulse 81 Pulse Source Pulse Oximeter Pulse Oximetry (%) 96 Oxygen Delivery Method Room Air Intake Visit Reasons: s/p Left sn Sprint Machine Zipper Trimmer Required: Yes Machine Zipper Trimmer Name: Delmy [id number] Allergies lisinopril Allergy (Intermediate, Verified 10/26/22 08:07) Cough aspirin Allergy (Mild, Verified 10/26/22 08:07) Swelling penicillin V Allergy (Unknown, Verified 10/26/22 08:07) Unknown Medication List - Last Reconciled 10/26/22 by Nia Simmons LPN amlodipine 5 mg PO DAILY escitalopram oxalate 5 mg PO DAILY metoprolol succinate ER 50 mg PO DAILY omeprazole 20 mg PO BID rosuvastatin 40 mg PO BEDTIME sennosides-docusate sodium 8.6-50 mg (Senexon-S) 2 tabs PO BEDTIME telmisartan-hydrochlorothiazid 80-25 mg 1 tab DAILY tizanidine 4 mg PO TID PRN walker As directed HPI s/p Left sn Sprint HPI Details 46-year-old male presenting today for a status post left SN Sprint. A certified landscaping and groundskeeping laborer was present during the visit. The patient reports 60% relief following the procedure. He currently rates his pain at 3-4/10 in intensity. His device is currently functional at 60. He noticed tightness when he increased the device to 65 or more. He changed his dressing past day at home. Past procedure: 10/21/22: Peripheral Nerve Stimulation Temporary Lead Placement, Ultrasound-Guided, Infrapatellar Saphenous Nerve, Left: 60% relief. [facility] Medical History (Updated 10/15/22 @ 17:04 by Nila Meeks NP-Nannette) High cholesterol HTN (hypertension) LENA (obstructive sleep apnea) Trigger finger Surgical History H/O inguinal hernia repair S/P eye surgery Family History Mother No problems noted. Father No problems noted. 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 Alert and oriented. Mood and affect appropriate. Follows and participates in conversation appropriately. Respiratory effort is unlabored. Able to transition from sit to stand unassisted. Ambulates with bilaterally normal heel strike and toe off. Site is clean, dry and intact. Results Reviewed Results Reviewed: No imaging is available for review. Assessment & Plan Assessment & Plan (1) Bilateral knee pain: Code(s): M25.561 - Pain in right knee; M25.562 - Pain in left knee Plan The patient will follow up on 12/18/22. On evaluation today, the site is clean, dry and intact. The dressing was changed today in the office. Scribed for Dr. Shi by Tae Escobar, medical education coordinator, on 10/26/2022. I, Dr. Shi, have personally reviewed and agree with the information entered by the scribe. Coding Level of Care Code Est Pt Level 3 (11944) Diagnoses Bilateral knee pain M25.561; M25.562
[2022-10-26 08:06] VITALS: BP 124/75; PULSE 81; RESP 14; O2SAT 96; BMI 39.2
== END 2022-10-26 08:53 | disposition home or self-care (01) ==
PROVIDERS: PCP Internal Medicine; Visit Provider Internal Medicine
DX: M25.561 Pain in right knee (principal); M25.562 Pain in left knee
CPT/HCPCS: 99024; 99213

== ENCOUNTER → 2022-10-26 08:02 | Outpatient (BNVA) | payer MEDICAID, SELFPAY | PROVIDERS: PCP Internal Medicine; Visit Provider Internal Medicine | DX: M25.561 Pain in right knee (principal); M25.562 Pain in left knee | CPT/HCPCS: 99212 ==

== ENCOUNTER 2022-11-27 12:44 | Outpatient (AMB) | payer MEDICAID, SELFPAY ==
--- NOTE | 2022-11-27 13:14 | A.OFFVIS_ITS ---
Intake Vital Signs 11/27/22 13:15 Height 5 ft 8 in Weight 261 lb 14.546 oz BMI 39.8 BP 122/80 Blood Pressure Location Lt brachial Position Sitting Pulse 64 Pulse Source Pulse Oximeter Intake Visit Reasons: Follow up post cardiac cath Oil Mixer Required: No Construction Quality Control Manager: Construction Quality Control Manager Present Accompanied by: Spouse Allergies lisinopril Allergy (Intermediate, Verified 11/27/22 13:23) Cough aspirin Allergy (Mild, Verified 11/27/22 13:23) Swelling penicillin V Allergy (Unknown, Verified 11/27/22 13:23) Unknown Medication List - Last Reconciled 11/27/22 by Nila Meeks, TREE FELLER-C amlodipine 10 mg PO DAILY escitalopram oxalate 5 mg PO DAILY metoprolol succinate ER 100 mg PO DAILY omeprazole 20 mg PO BID rosuvastatin 40 mg PO BEDTIME sennosides-docusate sodium 8.6-50 mg (Senexon-S) 2 tabs PO BEDTIME telmisartan-hydrochlorothiazid 80-25 mg 1 tab DAILY tizanidine 4 mg PO TID PRN walker As directed HPI Follow up post cardiac cath HPI Details Arias is a 47-year-old male with past medical history of hypertension, hyperlipidemia, obstructive sleep apnea, currently untreated who has reported chest pressure with activity and recently underwent cardiac catheterization, CTA of the coronaries and had cardiac surgeon evaluation and now presents for follow-up. Today he reports that he continues to have chest pressure with physical activity. It occurs daily. It does not occur at rest or during the night. He has some shortness of breath with activity but admits to being mostly sedentary. No dizziness, presyncope, syncope, falls. No PND, orthopnea or edema. He has an allergy to aspirin and will get swelling around his eyes. He is taking all his medications as directed. His friend is present and assisting with translation at his request, permit signed. [facility] Medical History (Updated 11/27/22 @ 16:08 by Nila Meeks, TREE FELLER-C) LENA (obstructive sleep apnea) High cholesterol HTN (hypertension) Trigger finger Surgical History (Updated 11/27/22 @ 16:02 by Nila Meeks TREE FELLER-C) S/P cardiac catheterization H/O inguinal hernia repair S/P eye surgery Family History Mother No problems noted. Father No problems noted. 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 Review of Systems Const All systems reviewed & are unremarkable except as noted in HPI and below ENT Reports dizziness Card Reports chest pain, Denies chest pain at rest, Reports chest pain with activity, Denies rapid heart rate, Denies pedal edema, Denies edema, Denies leg edema, Denies lightheadedness, Denies palpitations, Denies dyspnea, Reports dyspnea on exertion and Denies orthopnea Resp Denies cough, Denies dyspnea and Reports dyspnea on exertion GI Denies hematochezia and Denies change in stool character Musc Denies abnormal gait, Reports limited range of motion, Reports muscle cramps, Denies muscle weakness, Denies numbness, Denies radiating pain into limb, Denies stiffness and Denies tingling Neuro Denies abnormal gait, Reports dizziness, Denies numbness and Denies tingling Endo Denies palpitations Physical Exam Vital Signs: Last Vital Signs Pulse 64 11/27/22 13:15 BP 122/80 11/27/22 13:15 BMI result Body Mass Index 39.8 Const General: cooperative, healthy appearing, comfortable and no acute distress Orientation/consciousness: patient oriented x3 Neck Neck: Yes normal visual inspection and Yes no JVD Resp Effort & Inspection: normal respiratory effort Auscultation: clear to auscultation bilaterally, no crackles, no rales, no rhonchi and no wheezes Cardio Jugular venous distension: no JVD Rate: regular rate Rhythm: regular rhythm Heart sounds: S1 normal heart sound present, S2 normal heart sound present, no murmurs and no rubs Neuro General: patient oriented x3 Extrem General: Yes normal to inspection Psych Appearance: grossly normal Mental Status: mental status grossly normal Speech and movement: Normal speech and movement present Assessment & Plan Assessment & Plan (1) Exertional angina: Code(s): I20.8 - Other forms of angina pectoris Plan: Typical sounding exertional angina that has increased in frequency and severity over the last 6 months. EKG done prior recent visit showing normal sinus rhythm with no acute ST or T-wave abnormalities, rate 78. Echocardiogram done 08/13/2022 showing EF 62%, no evidence of regional wall motion abnormality, no valve abnormalities. Stress echocardiogram done on 09/11/2022 showed exercise 8 minutes 20 seconds with development of 8/10 chest tightness, no EKG changes of ischemia, symptom resolved with rest, no echo evidence of ischemia however report does state study quality less than optimal. On last visit he continued to report symptoms. He was on 2 antianginal agents including metoprolol XL and amlodipine. 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 At [facility] he then had a CTA of the coronary arteries to further assess. It showed be LAD went between the aorta and the RV outflow track. He was evaluated by Dr. Christensen in cardiac surgery on 11/25/2022. Due to no EKG changes or echo evidence of ischemia during stress echo he is unclear at present if the LAD is actually causing his chest discomfort. He has ordered a nuclear stress test to be done at [facility]. Patient is awaiting a call for that date and then tells me he has follow-up with Dr. Christensen when test results are available. If it is found that the LAD is not the cause of his discomfort then further evaluation for noncardiac causes can be considered. He does report some shortness of breath with his chest tightness and may benefit from a pulmonary function test in that case. Will continue on metoprolol and amlodipine. He is also on high-dose rosuvastatin. He is not on aspirin due to allergy. Cardiology follow-up 2-3 months, sooner if needed. Emergency care if needed for symptoms. (2) Shortness of breath: Code(s): R06.02 - Shortness of breath (3) HTN (hypertension): Code(s): I10 - Essential (primary) hypertension Qualifiers: Hypertension type: primary hypertension Qualified Code(s): I10 - Essential (primary) hypertension Plan: Well controlled present. Continue amlodipine and metoprolol.- he tells me that his PCP increased his medicine doses and he is currently on amlodipine 10mg and metoprolol XL 100. Will adjust those doses in the system (4) High cholesterol: Code(s): E78.00 - Pure hypercholesterolemia, unspecified Plan: Chandler LDL goal less than 100. Continue rosuvastatin 40 mg daily (5) LENA (obstructive sleep apnea): Code(s): G47.33 - Obstructive sleep apnea (adult) (pediatric) Plan: He tells me he has not been wearing CPAP mask but is undergoing the steps needed to have a new mask ordered (6) Preop cardiovascular exam: Code(s): Z01.810 - Encounter for preprocedural cardiovascular examination Plan: Patient tells me he is having carpal tunnel surgery - previously placed on hold due to his symptoms as above. At this time he is still not cleared from a cardiology perspective Coding Level of Care Code Est Pt Level 4 (55088) Diagnoses Exertional angina I20.8 Shortness of breath R06.02 Primary hypertension I10 Hypertension type: primary hypertension High cholesterol E78.00 LENA (obstructive sleep apnea) G47.33 Preop cardiovascular exam Z01.810 Time Spent (min) 28 Comment
[2022-11-27 13:15] VITALS: BP 122/80; PULSE 64; BMI 39.8
== END 2022-11-27 13:44 | disposition home or self-care (01) ==
PROVIDERS: PCP Internal Medicine; Referring Provider Internal Medicine; Visit Provider Nurse Practitioner Family
DX: I20.8 Other forms of angina pectoris (principal); R06.02 Shortness of breath; I10 Essential (primary) hypertension; E78.00 Pure hypercholesterolemia, unspecified; G47.33 Obstructive sleep apnea (adult) (pediatric); Z01.810 Encounter for preprocedural cardiovascular examination
CPT/HCPCS: 99214

== ENCOUNTER → 2022-11-27 12:44 | Outpatient (BNVA) | payer MEDICAID, SELFPAY | PROVIDERS: PCP Internal Medicine; Referring Provider Internal Medicine; Visit Provider Nurse Practitioner Family | DX: Z01.810 Encounter for preprocedural cardiovascular examination (principal); I20.8 Other forms of angina pectoris; I10 Essential (primary) hypertension; R06.02 Shortness of breath; E78.00 Pure hypercholesterolemia, unspecified; G47.33 Obstructive sleep apnea (adult) (pediatric); Z79.899 Other long term (current) drug therapy | CPT/HCPCS: 99212 ==

== ENCOUNTER → 2022-12-09 13:11 | Outpatient (BNVA) | payer MEDICAID, SELFPAY | PROVIDERS: PCP Internal Medicine; Visit Provider Internal Medicine ==

== ENCOUNTER 2022-12-10 07:04 | Outpatient (REF) | payer MEDICAID, SELFPAY ==
[2022-12-10 07:15] LABS: MANUAL DIFF FLAG NO
[2022-12-10 07:38] LABS: Basophils Percent Auto 0.4 % (0-2); Eosinophils Absolute Auto 0.2 X10*3/uL (0.0-0.4); Eosinophils Percent Auto 4.4 % (0-4); Hematocrit 44.4 % (42.0-52.0); Hemoglobin 15.3 g/dl (14.0-18.0); Imm Gran Abs Auto 0.01 X10*3/uL (0.00-0.03); Imm Gran Pct Auto 0.2 % (0.0-0.4); Lymphocytes Absolute Auto 0.9 X10*3/uL (1.2-4.9); Lymphocytes Percent Auto 18.8 % (20-40); Mean Corpuscular HGB Conc 34.5 g/dl (31.0-36.0); Mean Corpuscular Hemoglobin 28.5 pg (27.0-33.0); Mean Corpuscular Volume 82.8 fL (80.0-98.0); Mean Platelet Volume 11.4 fL (9.4-12.4); Monocytes Absolute Auto 0.4 X10*3/uL (0.1-1.2); Monocytes Percent Auto 7.4 % (2-11); Neutrophils Absolute Auto 3.3 x10*3/uL (2.0-8.3); Neutrophils Percent Auto 68.8 % (45-73); Platelet Count 143 X10*3/uL (160-400); Red Blood Count 5.36 X10*6/uL (4.60-5.80); Red Cell Distribution Width 13.4 % (11.0-16.0); White Blood Count 4.7 X10*3/uL (4.8-10.8)
[2022-12-10 08:10] LABS: Alanine Aminotransferase 68 U/L (0-40); Albumin Level 4.7 g/dL (3.5-5.0); Alkaline Phosphatase 85 U/L (39-117); Anion Gap 13 (12-20); Aspartate Amino Transferase 39 U/L (5-37); Bilirubin Total 0.5 mg/dL (0.0-1.0); Blood Urea Nitrogen 16 mg/dL (9-16); Calcium 10.1 mg/dL (8.4-10.2); Carbon Dioxide 26 mmol/L (22-29); Chloride 108 mmol/L (96-108); Estimated Glomerular Filt Rate > 60; Glucose Random 103 mg/dL (60-115); Potassium 4.1 mmol/L (3.3-5.1); Sodium 143 mmol/L (135-145); Total Protein 7.4 g/dL (6.5-8.0)
== END 2022-12-10 07:05 | disposition home or self-care (01) ==
LOC: HO.LAB 07:04
PROVIDERS: PCP Internal Medicine; Visit Provider Internal Medicine
DX: D69.6 Thrombocytopenia, unspecified (principal); F32.5 Major depressive disorder, single episode, in full remission; I10 Essential (primary) hypertension; M51.16 Intervertebral disc disorders with radiculopathy, lumbar region; R74.01 Elevation of levels of liver transaminase levels
CPT/HCPCS: 36415; 80053; 85025

== ENCOUNTER 2022-12-18 07:59 | Outpatient (AMB) | payer MEDICAID, SELFPAY ==
[2022-12-18 08:11] VITALS: BP 126/66; PULSE 76; RESP 14; O2SAT 96; BMI 40.4
--- NOTE | 2022-12-18 08:11 | A.OFFVIS_ITS ---
Intake Vital Signs 12/18/22 08:11 Height 5 ft 8 in Weight 266 lb BMI 40.4 BP 126/66 Blood Pressure Location Lt brachial Position Sitting Respiration 14 Pulse 76 Pulse Source Pulse Oximeter Pulse Oximetry (%) 96 Oxygen Delivery Method Room Air Intake Visit Reasons: Procedure discussion Awning Hanger Supervisor Required: Yes Awning Hanger Supervisor Name: Delmy #[id number] Allergies lisinopril Allergy (Intermediate, Verified 11/27/22 13:23) Cough aspirin Allergy (Mild, Verified 11/27/22 13:23) Swelling penicillin V Allergy (Unknown, Verified 11/27/22 13:23) Unknown Medication List - Last Reconciled 12/18/22 by Nia Simmons LPN amlodipine 10 mg PO DAILY escitalopram oxalate 5 mg PO DAILY metoprolol succinate ER 100 mg PO DAILY omeprazole 20 mg PO BID rosuvastatin 40 mg PO BEDTIME sennosides-docusate sodium 8.6-50 mg (Senexon-S) 2 tabs PO BEDTIME telmisartan-hydrochlorothiazid 80-25 mg 1 tab DAILY tizanidine 4 mg PO TID PRN walker As directed HPI Procedure discussion HPI Details 47-year-old male who presents today to t he office for a discussion of procedure. The patient is still experiencing bilateral knee pain. The patient states that he had burning and pressure sensations from the device at night. He reached the device setting of 70 but had to reduce it to 50 at night due to sensations. He reports black and blue discoloration in his medial thigh following the attempted adductor canal PNS placement. This resolved after so few days. Past procedure: 10/21/22: Peripheral Nerve Stimulation T emporary Lead Placement, Ultrasound- Guided, Infrapatellar Saphenous Nerve, Left: No significant relief. [facility] Medical History (Updated 12/18/22 @ 09:15 by Jonathan Shi MD) LENA (obstructive sleep apnea) High cholesterol HTN (hypertension) Trigger finger Surgical History (Updated 11/27/22 @ 16:02 by JERE Peterson) S/P cardiac catheterization H/O inguinal hernia repair S/P eye surgery Family History Mother No problems noted. Father No problems noted. 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 Alert and oriented. Mood and affect appropriate. Follows and participates in conversation appropriately. Respiratory effort is unlabored. Able to transition from sit to stand unassisted. Ambulates with bilaterally normal heel strike and toe off. No bruising noted on the medial thigh. Site looks clean dry and intact Results Reviewed Results Reviewed: No imaging is available for review. Assessment & Plan Assessment & Plan (1) Bilateral knee pain: Code(s): M25.561 - Pain in right knee; M25.562 - Pain in left knee Qualifiers: Chronicity: chronic Qualified Code(s): M25.561 - Pain in right knee; M25.562 - Pain in left knee; G89.29 - Other chronic pain Plan Discussed permanent nerve stimulators as a possible treatment option. We discussed starting a trial of permanent nerve stimulator placement; if the pain is significantly improved, we will proceed with placement of the permanent device. The patient will think about it and let us know if he wants to proceed with the plan. A device brochure was provided to the patient today in the office. The patient will follow up as needed. Scribed for Dr. Shi by Tae Escobar, medical diagnostic radiographer, on 12/18/2022. I, Dr. Shi, have personally reviewed and agree with the information entered by the scribe. Coding Level of Care Code Est Pt Level 3 (99886) Diagnoses Chronic pain of both knees M25.561; M25.562; G89.29 Chronicity: chronic
== END 2022-12-18 08:35 | disposition home or self-care (01) ==
PROVIDERS: PCP Internal Medicine; Visit Provider Internal Medicine
DX: M25.561 Pain in right knee (principal); M25.562 Pain in left knee; G89.29 Other chronic pain
CPT/HCPCS: 99213

== ENCOUNTER → 2022-12-18 07:59 | Outpatient (BNVA) | payer MEDICAID, SELFPAY | PROVIDERS: PCP Internal Medicine; Visit Provider Internal Medicine | DX: M25.561 Pain in right knee (principal); M25.562 Pain in left knee; G89.29 Other chronic pain | CPT/HCPCS: 99212 ==

== ENCOUNTER 2023-01-12 10:00 | Outpatient (RCR) | payer MEDICAID, SELFPAY ==
--- NOTE | 2023-01-05 15:54 | MHC.PT.EP ---
[facility] [place] [facility] [place] Office [place] Office [address] Joe Paez [address] [phone] F: [phone] F: [phone] F: [phone] F: [phone] Physical Therapy Plan of Care Date of Evaluation: 01/05/23 Date of Surgery: Diagnosis: back pain (MD Dx) Per imaging: CT of the lumbar spine shows disc protrusions at the level of L3-L4 with potential mass effect upon the right L4 nerve root with vacuum disc phenomena Assessment: Patient is a 47 y.o. Danish speaking male who is referred to PT by Dr. Heaven Reynolds MD, with Dx of back pain. PT diagnosis is acute low back pain due to disc prolapse with parasthesia. From MD notes CT of the lumbar spine shows disc protrusions at the level of L3-L4 with potential mass effect upon the right L4 nerve root with vacuum disc phenomena among other findings. Patient impairments include pain, poor posture, weakness in core and hips, limited lumbar AROM. Patient current functional limitations are prolonged standing for shower/cooking, bending over, stair use (worse going down). Patient will benefit from skilled PT to address aforementioned impairments and functional limitations to meet established goals. Frequency and Duration: The patient will be seen 2x/week for 4 weeks Short Term Goals: 2 weeks Patient demonstrates consistency and independence with HEP to self manage symptoms. Ethanol Quality Leader Goals: 4 weeks Patient presents with increased lumbar flexoin AROM 80 degrees to be able to tie his shoes without difficulty. Patient presents with increased hip flexion 5/5 to be able to ascend/descend 3 stairs for community use. Treatment Plan: Modalities to reduce pain, spasms and effusion. Manual therapy to restore motion and function. Therapeutic exercise to improve strength and flexibility. Neuromuscular re-education for posture and balance. Therapeutic activities to return to functional activities of daily living. Electronically signed by: Kobe Gastelum, PT, DPT Please sign and return to therapist. Thank you for your referral.
--- NOTE | 2023-03-01 16:52 | MHC.PT.DC ---
[facility] [place] Office [place] Office [place] Office [address] Joe Paez [address] [facility] [phone] F: [phone] F: [phone] F: [phone] F: [phone] Physical Therapy Discharge Report Diagnosis: back pain ( Dx) Per imaging: CT of the lumbar spine shows disc protrusions at the level of L3-L4 with potential mass effect upon the right L4 nerve root with vacuum disc phenomena Date of Surgery: Date of Evaluation: 01/05/23 Date of Discharge: 03/01/23 Treatments to Date: 2 Cancellations to Date: 3 No Shows to Date: Discharge Status: Patient Elected to Stop Discharge Summary: Arias was only seen for 2 PT visits, he then canceled his next scheduled visits as he left message that he was out of town for a family emergency. He did not schedule any more sessions and is therefore discharged from PT at this time. Electronically signed by: Kobe Gastelum, PT, DPT Please sign and return to therapist. Thank you for your referral.
== END 2023-03-01 16:54 | disposition home or self-care (01) ==
LOC: HO.PT 10:00
PROVIDERS: PCP Internal Medicine; Visit Provider Internal Medicine
DX: M54.50 Low back pain, unspecified (principal)
CPT/HCPCS: 97110; 97140; 97162

== ENCOUNTER 2023-05-26 10:45 | Outpatient (REF) | payer MEDICAID, SELFPAY ==
[2023-05-26 10:59] LABS: MANUAL DIFF FLAG NO
[2023-05-26 11:38] LABS: Basophils Percent Auto 0.4 % (0-2); Eosinophils Absolute Auto 0.1 X10*3/uL (0.0-0.4); Eosinophils Percent Auto 1.1 % (0-4); Hematocrit 44.5 % (42.0-52.0); Hemoglobin 15.2 g/dl (14.0-18.0); Imm Gran Abs Auto 0.02 X10*3/uL (0.00-0.03); Imm Gran Pct Auto 0.4 % (0.0-0.4); Lymphocytes Absolute Auto 0.6 X10*3/uL (1.2-4.9); Lymphocytes Percent Auto 11.2 % (20-40); Mean Corpuscular HGB Conc 34.2 g/dl (31.0-36.0); Mean Corpuscular Hemoglobin 28.3 pg (27.0-33.0); Mean Corpuscular Volume 82.7 fL (80.0-98.0); Mean Platelet Volume 11.2 fL (9.4-12.4); Monocytes Absolute Auto 0.4 X10*3/uL (0.1-1.2); Monocytes Percent Auto 6.8 % (2-11); Neutrophils Absolute Auto 4.6 x10*3/uL (2.0-8.3); Neutrophils Percent Auto 80.1 % (45-73); Platelet Count 178 X10*3/uL (160-400); Red Blood Count 5.38 X10*6/uL (4.60-5.80); Red Cell Distribution Width 14.1 % (11.0-16.0); White Blood Count 5.7 X10*3/uL (4.8-10.8)
[2023-05-26 12:54] LABS: Alanine Aminotransferase 28 U/L (0-40); Albumin Level 4.9 g/dL (3.5-5.0); Alkaline Phosphatase 85 U/L (39-117); Anion Gap 11 (12-20); Aspartate Amino Transferase 23 U/L (5-37); Bilirubin Total 0.8 mg/dL (0.0-1.0); Blood Urea Nitrogen 18 mg/dL (9-16); Calcium 9.5 mg/dL (8.4-10.2); Carbon Dioxide 27 mmol/L (22-29); Chloride 106 mmol/L (96-108); Estimated Glomerular Filt Rate > 60; Glucose Random 102 mg/dL (60-115); Potassium 3.9 mmol/L (3.3-5.1); Sodium 140 mmol/L (135-145); Total Protein 7.7 g/dL (6.5-8.0)
== END 2023-05-26 10:46 | disposition home or self-care (01) ==
LOC: HO.LAB 10:45
PROVIDERS: PCP Internal Medicine; Visit Provider Internal Medicine
DX: D69.6 Thrombocytopenia, unspecified (principal); F32.5 Major depressive disorder, single episode, in full remission; I10 Essential (primary) hypertension; M51.16 Intervertebral disc disorders with radiculopathy, lumbar region; R74.01 Elevation of levels of liver transaminase levels
CPT/HCPCS: 36415; 80053; 85025

== ENCOUNTER 2023-06-01 08:48 | Outpatient (AMB) | payer MEDICAID, SELFPAY ==
--- NOTE | 2023-06-01 09:12 | MHC.OFFVIS ---
Intake Vital Signs 06/01/23 09:13 Height 5 ft 8 in Weight 246 lb 14.684 oz BMI 37.5 BP 120/78 Blood Pressure Location Lt brachial Position Sitting Pulse 78 Intake Visit Reasons: follow up R/S Intake Note: FOLLOW UP PT FEELS GOOD Director Of Public Works Name: JILLIAN [phone] Allergies lisinopril Allergy (Intermediate, Verified 11/27/22 13:23) Cough aspirin Allergy (Mild, Verified 11/27/22 13:23) Swelling penicillin V Allergy (Unknown, Verified 11/27/22 13:23) Unknown Medication List - Last Reconciled 06/01/23 by Nila Meeks, NORAH-C amlodipine 10 mg PO DAILY escitalopram oxalate 5 mg PO DAILY metoprolol succinate ER 100 mg PO DAILY omeprazole 20 mg PO BID rosuvastatin 40 mg PO BEDTIME sennosides-docusate sodium 8.6-50 mg (Senexon-S) 2 tabs PO BEDTIME telmisartan-hydrochlorothiazid 80-25 mg 1 tab DAILY tizanidine 4 mg PO TID PRN walker As directed HPI follow up R/S HPI Details Arias is a 47-year-old male with past medical history of hypertension, hyperlipidemia, obstructive sleep apnea, chest discomfort with 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 He was referred to Dr. Christensen for cardiac surgery and a nuclear stress test was done at [facility] showing no reversible defect. He now presents for follow-up. Today he reports that he will get some tightness in his chest with physical activity at times but states that overall his symptom is much improved from what it had been. He denies having shortness of breath, heart palpitations, lightheadedness, presyncope, syncope, PND, orthopnea. He does have some trace swelling in his lower extremities. He tells me that he walks routinely for exercise. He is taking all his medications as directed. Overall he feels he is doing well. [facility] Medical History LENA (obstructive sleep apnea) High cholesterol HTN (hypertension) Trigger finger Surgical History S/P cardiac catheterization H/O inguinal hernia repair S/P eye surgery Family History Mother No problems noted. Father No problems noted. 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 Review of Systems Const All systems reviewed & are unremarkable except as noted in HPI and below Denies weakness ENT Denies dizziness Card Details: chest tightness at times with activity - less overall, mild leg edema Denies chest pain, Denies chest pain with activity, Denies syncope, Denies rapid heart rate, Denies pedal edema, Denies edema, Denies leg edema, Denies lightheadedness, Denies palpitations, Denies dyspnea, Denies dyspnea on exertion and Denies orthopnea Resp Denies cough, Denies dyspnea and Denies dyspnea on exertion GI Denies hematochezia and Denies change in stool character Musc Denies abnormal gait, Denies muscle cramps, Denies muscle weakness, Denies numbness, Denies radiating pain into limb and Denies tingling Neuro Denies abnormal gait, Denies dizziness, Denies syncope, Denies numbness, Denies tingling and Denies weakness Endo Denies palpitations Physical Exam Vital Signs: Last Vital Signs Pulse 78 06/01/23 09:13 BP 120/78 06/01/23 09:13 BMI result Body Mass Index 37.5 Const General: cooperative, healthy appearing, comfortable and no acute distress Orientation/consciousness: patient oriented x3 Neck Neck: Yes normal visual inspection and Yes no JVD Resp Effort & Inspection: normal respiratory effort Auscultation: clear to auscultation bilaterally, no crackles, no rales, no rhonchi and no wheezes Cardio Jugular venous distension: no JVD Rate: regular rate Rhythm: regular rhythm Heart sounds: S1 normal heart sound present, S2 normal heart sound present, no murmurs and no rubs Neuro General: patient oriented x3 Extrem Other: trace lower leg edema General: Yes normal to inspection Psych Appearance: grossly normal Mental Status: mental status grossly normal Speech and movement: Normal speech and movement present Assessment & Plan Assessment & Plan (1) Exertional angina: Code(s): I20.8 - Other forms of angina pectoris Plan: Prior reports of Typical sounding exertional angina that was increasing in frequency. His EKG showed normal sinus rhythm with no acute ST or T-wave abnormalities, rate 78. Echocardiogram done 08/13/2022 showing EF 62%, no evidence of regional wall motion abnormality, no valve abnormalities. Stress echocardiogram done on 09/11/2022 showed exercise 8 minutes 20 seconds with development of 8/10 chest tightness, no EKG changes of ischemia, symptom resolved with rest, no echo evidence of ischemia however report does state study quality less than optimal. On follow-up he continued to have symptoms and was put on 2 antianginal agents: metoprolol XL and amlodipine. 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 At [facility] he then had a CTA of the coronary arteries to further assess. It showed LAD went between the aorta and the RV outflow track. He was evaluated by Dr. Christensen in cardiac surgery on 11/25/2022. Due to no EKG changes or echo evidence of ischemia during stress echo he was unclear at present if the LAD is actually causing his chest discomfort. A nuclear stress test was done at [facility] which showed no reversible defects. Patient tells me that after getting his test results he has not had further follow-up with Dr. Christensen. There is no plan for surgery at this time. His chest discomfort has improved over time. Will get periodic tightness with exertional activities. There is still no clear evidence that his symptom is related to his LAD anomaly. At this time will continue medical management with metoprolol, amlodipine, rosuvastatin. He is not on aspirin due to allergy. Instructed to notify us if his symptoms change or worsen. Emergency care if ever needed for symptoms. Cardiology office visit in 6 months, sooner if needed. (2) HTN (hypertension): Code(s): I10 - Essential (primary) hypertension Qualifiers: Hypertension type: primary hypertension Qualified Code(s): I10 - Essential (primary) hypertension Plan: Well controlled present. No med changes made (3) High cholesterol: Code(s): E78.00 - Pure hypercholesterolemia, unspecified Plan: [place] LDL goal less than 100. Labs followed by his PCP. In our system last lipid profile done 04/27/2022 showing LDL 115. It has not clear to me if he was on rosuvastatin at that time. Presently Continue rosuvastatin 40 mg daily. Recommend updating fasting lipid profile Plan Time spent on chart review, documentation, interview and assessment Coding Level of Care Code Est Pt Level 4 (67167) Diagnoses Exertional angina I20.8 Primary hypertension I10 Hypertension type: primary hypertension High cholesterol E78.00 Time Spent (min) 30
[2023-06-01 09:13] VITALS: BP 120/78; PULSE 78; BMI 37.5
== END 2023-06-01 09:42 | disposition home or self-care (01) ==
PROVIDERS: PCP Internal Medicine; Visit Provider Nurse Practitioner Family
DX: I20.89 Other forms of angina pectoris (principal); I10 Essential (primary) hypertension; E78.00 Pure hypercholesterolemia, unspecified
CPT/HCPCS: 99214

== ENCOUNTER → 2023-06-01 08:48 | Outpatient (BNVA) | payer MEDICAID, SELFPAY | PROVIDERS: PCP Internal Medicine; Visit Provider Nurse Practitioner Family | DX: I10 Essential (primary) hypertension (principal); E78.00 Pure hypercholesterolemia, unspecified; I20.89 Other forms of angina pectoris | CPT/HCPCS: 99212 ==